=== PATIENT | female | born 2000 | race Caucasian/White ===

== ENCOUNTER 2023-05-28 14:13 | Outpatient (OUT) | payer OTHER, SELFPAY ==
--- NOTE | 2023-05-28 14:17 | US_ITS ---
The [address] [address] Patient Name: EDDIE CASTELLANOS MRN: [id number] date: 2000 Sex: F Assigned Patient Location: US Current Patient Location: Accession/Order Number: [id number] Exam Date: 05/28/2023 14:20 Report Date: 05/29/2023 06:26 At the request of: KIM ASHBY Procedure: US pelvis w/ transvaginal EXAM: US pelvis w/ transvaginal HISTORY: ovarian cyst N83.209 COMPARISON: 07/10/2022. TECHNIQUE: Pelvic sonography was performed utilizing grayscale and color Doppler technique. FINDINGS: Anteverted uterus measures 7.4 x 3.0 x 4.7 cm. Uterine endometrial stripe measures 0.4 cm in thickness. Right ovary measures 2.7 x 1.3 x 1.7 cm. Normal right ovarian parenchyma. Left ovary measures 2.2 x 0.9 x 1.2 cm. Normal left ovarian parenchyma. No significant free fluid within the pelvis. US/US pelvis w/ transvaginal IMPRESSION: Normal pelvic ultrasound. Electronically authenticated by: BETHANY POLANCO Date: 05/29/2023 06:26
== END 2023-05-28 14:14 | disposition home or self-care (01) ==
LOC: US 14:14
PROVIDERS: Visit Provider Obstetrics & Gynecology
DX: N83.209 Unspecified ovarian cyst, unspecified side (principal)
CPT/HCPCS: 76830; 76856

== ENCOUNTER 2023-09-23 21:02 | Outpatient (REF) | payer OTHER, SELFPAY ==
--- OUTSIDE RECORDS SUMMARY | 2023-09-23 21:14 | XMS_ITS | CCD ---
Author Organization [facility] Care Team Providers Care Heel Coverer Machine Operator Name Role Phone Valdemar Pickard Primary Care Physician [phone] SUSAN Rodriguez Emergency Provider [phone] Link, DO Valdemar Chandler Primary Care Provider Valdemar Pickard Primary Care Unavailable Yesi Rodriguez Attending Unavailable Yesi Rodriguez Admitting Unavailable ISMA ., DR ALVAREZ Attending Unavailable ISMA ., DR ALVAREZ Admitting Unavailable ISMA ., DR ALVAREZ Consulting Unavailable ISMA ., DR ALVAREZ Admitting Unavailable ISMA ., DR ALVAREZ Consulting Unavailable ISMA ., DR ALVAREZ Attending Unavailable KARASIK ., DR DÍAZ Consulting Unavailabl e KARASIK ., DR DÍAZ Attending Unavailabl e KARASIK ., DR DÍAZ Admitting Unavailabl e Rigo Lopez Consulting Unavailable ISMA ., DR ALVAREZ Attending Unavailable ISMA ., DR ALVAREZ Admitting Unavailable ISMA ., DR ALVAREZ Consulting Unavailable ZIEBER, DR RUBÉN Morales Consulting Unavailable GAGANDEEP ., LAITH Attending Unavailable Rigo Lopez Consulting Unavailable GAGANDEEP ., LAITH Admitting Unavailable GAGANDEEP ., LAITH Consulting Unavailable ISMA ., DR ALVAREZ Attending Unavailable ISMA ., DR ALVAREZ Admitting Unavailable ISMA ., DR ALVAREZ Consulting Unavailable ISMA ., DR ALVAREZ Admitting Unavailable ISMA ., DR ALVAREZ Attending Unavailable ISMA ., DR ALVAREZ Admitting Unavailable Rigo Lopez Consulting Unavailable ISMA ., DR ALVAREZ Attending Unavailable ISMA ., DR ALVAREZ Consulting Unavailable ISMA ., DR ALVAREZ Admitting Unavailable ISMA ., DR ALVAREZ Consulting Unavailable ISMA ., DR ALVAREZ Attending Unavailable ISMA ., DR ALVAREZ Attending Unavailable ISMA ., DR ALVAREZ Admitting Unavailable ISMA ., DR ALVAREZ Consulting Unavailable ISMA ., DR ALVAREZ Admitting Unavailable ISMA ., DR ALVAREZ Consulting Unavailable ISMA ., DR ALVAREZ Attending Unavailable ZIEBER, DR RUBÉN Morales Consulting Unavailable ISMA ., DR ALVAREZ Attending Unavailable ISMA ., DR ALVAREZ Consulting Unavailable ISMA ., DR ALVAREZ Admitting Unavailable ISMA ., DR ALVAREZ Attending Unavailable ISMA ., DR ALVAREZ Admitting Unavailable GRECHNY ., AMY RODRIGUEZ Consulting Unavailabl e REINECK, DR HALEY Albrecht Admitting Unavailabl e REINECK, DR HALEY Albrecht Attending Unavailabl e ARIE, RADHA Consulting Unavailable ISMA ., DR ALVAREZ Attending Unavailable ISMA ., DR ALVAREZ Admitting Unavailable KARASIK ., DR DÍAZ Consulting Unavailabl e ISMA ., DR ALVAREZ Consulting Unavailable ISMA ., DR ALVAREZ Procedure Practitioner Unavail able ISMA ., DR ALVAREZ Attending Unavailable ISMA ., DR ALVAREZ Consulting Unavailable ISMA ., DR ALVAREZ Admitting Unavailable ZIEBER, DR RUBÉN Morales Consulting Unavailable ISMA ., DR ALVAREZ Attending Unavailable ISMA ., DR ALVAREZ Consulting Unavailable ISMA ., DR ALVAREZ Admitting Unavailable ISMA ., DR ALVAREZ Attending Unavailable ISMA ., DR ALVAREZ Admitting Unavailable MOLLY BENTON Attending Unavailable MOLLY [place] Admitting Unavailable MOLLY [place] Consulting Unavailable SRINIVASAN ASHBY Attending Unavailable Valdemar Pickard Primary Care Physician Jose R Ignacio Attending Unavailable Kayla Mills Attending Unavailable Srinivasan ASHBY R Referring Unavailable Christie Barber Attending Unavailable Luly CARRASCO Attending Unavailable Valdemar Pickard Admitting Unavailable Valdemar Pickard Attending Unavailable Orpaz, Kayla X Admitting Unavailable Orpaz Kayla X Attending Unavailable Pedro Soriano Attending Unavailable Allergies Allergy Classification Reported Allergen(s) Allergy Type Date of Onset Reaction(s) Facility (8 sources) Ibuprofen; Translations: [ibuprofen] Drug Allergy 3 Vomiting (disorder) [facility] (2 sources) methylPREDNISol one; Translations: [methylpredniso lone] Drug Allergy 3 [facility] (2 sources) prednisoLONE; Translations: [prednisolone] Drug Allergy 3 [facility] (3 sources) predniSONE; Translations: [prednisone] Drug Allergy 3 [facility] (1 source) Ibuprofen Drug Allergy 3 [facility]ository (1 source) Ibuprofen Drug Allergy 2 [facility] Repository (1 source) watermelon allergenic extract Drug Allergy 2 [facility] Repository (1 source) mint Drug allergy (disorder) 2 [facility] Repository (1 source) anabolic steroids; Translations: [anabolic steroids] Propensity to adverse reactions (disorder) [facility] Repository Medications Current Medications Medication Drug Class(es) Dates Sig (Normalized) Sig (Original) ALPRAZolam 0.5 mg oral tablet (8 sources) Benzodiazepine Start: 04-04-2020 take 1 tablet by mouth twice daily as needed for anxiety Xanax 0.5 mg Tab 0.5 mg = 1 tab(s), Oral, BID, PRN for anxiety, f41.1., # 60 tab(s), Refills(s) 2, Pharmacy: [facility] #[id number], 159, cm, 03/27/20 11:23:00 EDT, Height/Length Dosing, 92.9, kg, 03/27/20 11:23:00 EDT, Weight Dosing Start Date: 04/04/20 Status: Ordered brompheniramine maleate 0.4 mg/ml / dextromethorphan hydrobromide 2 mg/ml / pseudoephedrine hydrochloride 6 mg/ml oral solution (5 sources) alpha-Adrenergic Agonist, Uncompetitive P-qeadgf-M-aspartate Receptor Antagonist, Sigma-1 Agonist Start: 12-14-2020 take 10 mL by mouth four times daily Bromfed DM oral syrup 10 mL, Oral, QID for cold symptoms, 200 mL, Refill(s) 1, [facility]pharm[facility] #[id number], 155, cm, 12/14/20 15:23:00 EDT, Height/Length Dosing, 91.3, kg, 12/14/20 15:23:00 EDT, Weight Dosing Start Date: 12/14/20 Status: Ordered Brompheniramine / Pseudoephedrine (3 sources) alpha-Adrenergic Agonist Start: 12-14-2020 take 10 mL by mouth four times daily Bromfed DM oral syrup 10 mL, Oral, QID for cold symptoms, 200 mL, Refill(s) 1, [facility]pharm[facility] #[id number], 155, cm, 12/14/20 15:23:00 EDT, Height/Length Dosing, 91.3, kg, 12/14/20 15:23:00 EDT, Weight Dosing Start Date: 12/14/20 Status: Ordered Capmist DM 15 mg-400 mg-60 mg oral tablet (1 source) Start: 07-08-2022 End: 07-15-2022 Capmist DM 15 mg-400 mg-60 mg oral tablet 1 tab(s), Oral, QID Cough and Congestion for 7 day(s), 28 tab(s), Refill(s) 0, [facility] #[id number], 155, cm, 07/08/22 18:26:00 EST, Height/Length Dosing, 89.9, kg, 07/08/22 18:26:00 EST, Weight Dosing Start Date: 07/08/22 Stop Date: 07/15/22 Status: Ordered cephalexin 500 mg oral capsule (1 source) Cephalosporin Antibacterial Start: 05-05-2023 End: 05-12-2023 take 1 capsule by mouth every twelve hours Keflex 500 mg Cap 500 mg = 1 cap(s), Oral, q12hr, X 7 day(s), # 14 cap(s), Refills(s) 0, [id number], cm, 05/05/23 1:19:00 EST, Height/Length Dosing, 87.6, kg, 05/05/23 1:19:00 EST, Weight Dosing Start Date: 05/05/23 Stop Date: 05/12/23 Status: Ordered ciprofloxacin 500 mg oral tablet (1 source) Quinolone Antimicrobial Start: 07-22-2023 End: 07-29-2023 take 1 tablet by mouth every twelve hours Cipro 500 mg Tab 500 mg = 1 tab(s), Oral, q12hr, X 7 day(s), # 14 tab(s), Refills(s) 0, Pharmacy: [facility] #[id number], 156, cm, 07/22/23 16:52:00 EST, Height/Length Dosing, 88, kg, 07/22/23 16:52:00 EST, Weight Dosing Start Date: 07/22/23 Stop Date: 07/29/23 Status: Ordered {7 (Ethinyl Estradiol 0.01 MG Oral Tablet) / 84 (Ethinyl Estradiol 0.03 MG / Levonorgestrel 0.15 MG Oral Tablet) } Pack (4 sources) Progestin, Estrogen, Progestin-containing Intrauterine Device Start: 11-21-2022 ethinyl estradiol-verena orgestrel biphasic extended cycle oral tablet 1 tab(s), Oral, Daily, 56 tab(s), Refill(s) 0 Start Date: 11/21/22 Status: Ordered lamoTRIgine 150 mg oral tablet (8 sources) Mood Stabilizer, Anti-epileptic Agent Start: 04-04-2020 take 1 tablet by mouth twice daily Lamictal 150 mg Tab 150 mg = 1 tab(s), Oral, BID, # 60 tab(s), Refills(s) 5, Pharmacy: [facility] #[id number], 159, cm, 03/27/20 11:23:00 EDT, Height/Length Dosing, 92.9, kg, 03/27/20 11:23:00 EDT, Weight Dosing Start Date: 04/04/20 Status: Ordered loperamide hydrochloride 2 mg oral tablet (8 sources) Opioid Agonist Start: 07-30-2020 take 1 tablet by mouth every four hours as needed Imodium A-D 2 mg oral tablet 2 mg = 1 tab(s), Oral, q4hr, PRN for loose stools, # 24 tab(s), Refills(s) 0, Pharmacy: [id number], 155, cm, 07/29/20 22:54:00 EST, Height/Length Dosing, 92.7, kg, 07/29/20 22:54:00 EST, Weight Dosing Start Date: 07/30/20 Status: Ordered loratadine 10 mg oral tablet (8 sources) Start: 10-25-2019 take 1 tablet by mouth once daily loratadine 10 mg Tab 10 mg = 1 tab(s), Oral, Daily, # 30 tab(s), Refills(s) 2, Pharmacy: [facility] #[id number], 157, cm, 08/27/19 14:44:00 EDT, Height/Length Measured, 88, kg, 08/27/19 14:44:00 EDT, Weight Measured Start Date: 10/25/19 Status: Ordered naproxen 500 mg oral tablet (8 sources) Nonsteroidal Anti-inflammatory Drug Start: 08-23-2021 take 1 tablet by mouth twice daily as needed for pain naproxen 500 mg Tab 500 mg = 1 tab(s), Oral, BID, PRN Pain, with food, # 60 tab(s), Refills(s) 0, Pharmacy: [id number], 155, cm, 01/27/21 14:56:00 EDT, Height/Length Dosing, 91.3, kg, 01/27/21 14:56:00 EDT, Weight Dosing Start Date: 08/23/21 Status: Ordered phenazopyridine hydrochloride 100 mg oral tablet (3 sources) Start: 05-05-2023 End: 05-08-2023 take 1 tablet by mouth three times daily Pyridium 100 mg Tab 100 mg = 1 tab(s), Oral, TID, X 3 day(s), # 9 tab(s), Refills(s) 0, [id number], cm, 05/05/23 1:19:00 EST, Height/Length Dosing, 87.6, kg, 05/05/23 1:19:00 EST, Weight Dosing Start Date: 05/05/23 Stop Date: 05/08/23 Status: Ordered Start: 11-21-2022 End: 11-24-2022 take 1 tablet by mouth three times daily as needed Pyridium 100 mg Tab 100 mg = 1 tab(s), Oral, TID, PRN Urinary discomfort, X 3 day(s), # 9 tab(s), Refills(s) 0, [id number], cm, 11/21/22 15:42:00 EDT, Height/Length Dosing, 89.5, kg, 11/21/22 15:42:00 EDT, Weight Dosing Start Date: 11/21/22 Stop Date: 11/24/22 Status: Ordered phentermine hydrochloride 37.5 mg oral capsule (4 sources) Sympathomimetic Amine Anorectic Start: 11-21-2022 take 1 capsule by mouth once daily Adipex-P 37.5 mg oral capsule 37.5 mg = 1 cap(s), Oral, Daily, Refills(s) 0 Start Date: 11/21/22 Status: Ordered sulfamethoxazole 800 mg / trimethoprim 160 mg oral tablet (2 sources) Dihydrofolate Reductase Inhibitor Antibacterial, Sulfonamide Antimicrobial Start: 11-21-2022 End: 11-26-2022 Bactrim D.S. 800 mg-160 mg Tab 1 tab(s), Oral, BID for 5 day(s), 10 tab(s), Refill(s) 0, [id number], 155, cm, 11/21/22 15:42:00 EDT, Height/Length Dosing, 89.5, kg, 11/21/22 15:42:00 EDT, Weight Dosing Start Date: 11/21/22 Stop Date: 11/26/22 Status: Ordered Symbicort 80/4.5 inhalation aerosol with adapter (8 sources) Start: 07-16-2021 Symbicort 80/4.5 inhalation aerosol with adapter 2 puff(s), Inhalation, BID, 1 EA, Refill(s) 1, IMTIAZ, rinse mouth and throat after use Fill as Symbicort brand per insurance, [id number], 155, cm, 01/27/21 14:56:00 EDT, Height/Length Dosing, 91.3, kg, 01/27/21 14:56:00 EDT, Weight Dosing Start Date: 07/16/21 Status: Ordered Completed/Discontinued Medications Medication Drug Class(es) Dates Sig (Normalized) Sig (Original) {21 (Desogestrel 0.15 MG / Ethinyl Estradiol 0.03 MG Oral Tablet) / 7 (Inert Ingredients 1 MG Oral Tablet) } Pack [Deceb Day] (5 sources) Progestin, Estrogen Start: 05-17-2020 take 1 tablet by mouth once daily Juleber 0.15 mg-0.03 mg oral tablet 1 tab(s), Oral, Daily, 84 tab(s), Refill(s) 4, [id number], 159, cm, 05/17/20 10:15:00 EST, Height/Length Dosing, 92.1, kg, 05/17/20 10:15:00 EST, Weight Dosing Start Date: 05/17/20 Status: Ordered Juleber 0.15 mg-0.03 mg oral tablet (3 sources) Start: 05-17-2020 take 1 tablet by mouth once daily Juleber 0.15 mg-0.03 mg oral tablet 1 tab(s), Oral, Daily, 84 tab(s), Refill(s) 4, [id number], 159, cm, 05/17/20 10:15:00 EST, Height/Length Dosing, 92.1, kg, 05/17/20 10:15:00 EST, Weight Dosing Start Date: 05/17/20 Status: Ordered Ventolin HFA 90 mcg/inh Aerosol (8 sources) Start: 02-23-2020 take 1 dose by inhalation four times daily Ventolin HFA 90 mcg/inh Aerosol 2 puff(s), Inhalation, QID Cough, 1 EA, Refill(s) 0, [id number], 159, cm, 02/23/20 14:17:00 EDT, Height/Length Dosing, 93.7, kg, 02/23/20 14:17:00 EDT, Weight Dosing Start Date: 02/23/20 Status: Ordered Problems Active Problems Problem Classification Problem Date Documented Da te Episodic/Chronic Anxiety disorders (12 sources) Generalized anxiety disorder 01-06-2020 Chronic Asthma (12 sources) Reactive airway disease 04-13-2020 Chronic Bacterial infection; unspecified site (1 source) Bacterial infectious disease; Translations: [Bacterial infection, unspecified] Onset: 07-22-2023 Episodic Genitourinary symptoms and ill-defined conditions (1 source) Dysuria; Translations: [Dysuria] Onset: 11-21-2022 Episodic Immunizations and screening for infectious disease (2 sources) Encounter for screening for human papillomavirus (HPV); Translations: [Contact with and (suspected) exposure to infections with a predominantly sexual mode of transmission] Onset: 12-19-2021 Episodic Menstrual disorders (20 sources) Dysmenorrhea; Translations: [Irregular periods] Onset: 12-17-2021 11-10-2018 Chronic Mood disorders (12 sources) Moderate mixed bipolar I disorder 01-06-2020 Chronic Other complications of ; puerperium affecting management of mother (4 sources) Delayed and secondary hemorrhage; Translations: [DELAYED AND SEC HEMORRHAGE] Onset: 07-10-2022 Episodic Other complications of ; puerperium affecting management of mother (1 source) Urinary tract infection following delivery, unspecified; Translations: [UTI FOLLOWING DELIVERY UNSPECIFIED] Onset: 07-11-2022 Episodic Other endocrine disorders (12 sources) Hypoglycemia 07-07-2020 Chronic Other female genital disorders (13 sources) Abnormal uterine bleeding; Translations: [Other specified abnormal uterine and vaginal bleeding] 01-06-2020 Chronic Other gastrointestinal disorders (12 sources) Irritable bowel syndrome 09-10-2015 Chronic Other gastrointestinal disorders (12 sources) Irritable bowel syndrome characterized by constipation 11-30-2018 Chronic Other nutritional; endocrine; and metabolic disorders (13 sources) Obesity; Translations: [Other obesity due to excess calories] Onset: 11-21-2022 04-13-2020 Chronic Other nutritional; endocrine; and metabolic disorders (2 sources) Obese class II; Translations: [Body mass index (BMI) 37.0-37.9, adult] Onset: 07-08-2022 Chronic Other screening for suspected conditions (not mental disorders or infectious disease) (4 sources) Abnormal findings on diagnostic imaging of other specified body structures; Translations: [ABNORML FIND DX IMG OTH BODY STRUC] Onset: 01-08-2022 Chronic Other screening for suspected conditions (not mental disorders or infectious disease) (20 sources) Encounter for screening for malignant neoplasm of cervix; Translations: [Encounter for screening for Streptococcus B] Onset: 12-17-2021 Episodic Other upper respiratory disease (12 sources) Seasonal allergic rhinitis 04-13-2020 Chronic Other upper respiratory infections (1 source) Common cold; Translations: [Acute nasopharyngitis [common cold]] Onset: 07-08-2022 Episodic Sprains and strains (1 source) Sprain of left ankle; Translations: [Sprain of unspecified ligament of left ankle, initial encounter] Onset: 02-26-2022 Episodic Unclassified (12 sources) Drug therapy finding 01-06-2020 Unclassified (1 source) Other specified abnormal uterine and vaginal bleeding; Translations: [Other specified abnormal uterine and vaginal bleeding] Onset: 07-11-2022 Unclassified (2 sources) Extended spectrum beta-lactamase producing bacteria carrier Onset: 11-21-2022 11-25-2022 Comment on above: ESBL E coli in urine 11/21/2022 Urinary tract infections (4 sources) Urinary tract infection, site not specified; Translations: [Urinary tract infectious disease] Onset: 07-11-2022 Episodic Past or Other Problems Problem Classification Problem Date Documented Date Episodic/Chronic Abdominal pain (13 sources) Pain in pelvis; Translations: [Pelvic and perineal pain] Onset: 06-11-2022 Resolved: 11-10-2018 11-30-2018 Episodic Early or threatened labor (4 sources) False labor before 37 completed weeks of gestation, third trimester; Translations: [FALSE LABR BEFOR 37 WK GEST 3RD TRI] Onset: 05-11-2022 Episodic Fluid and electrolyte disorders (1 source) Dehydration; Translations: [DEHYDRATION] Onset: 05-20-2022 Episodic Headache; including migraine (12 sources) Frontal headache Resolved: 11-10-2018 11-30-2018 Episodic Hemorrhage during ; abruptio placenta; placenta previa (4 sources) Antepartum hemorrhage, unspecified, second trimester; Translations: [ANTEPARTUM HEMORR UNS 2ND TRIMESTER] Onset: 02-05-2022 Episodic OB-related trauma to perineum and vulva (1 source) Fourth degree perineal laceration during delivery; Translations: [FOURTH DEG PERINEAL LAC DUR DELIV] Onset: 06-21-2022 Episodic Other complications of ; puerperium affecting management of mother (4 sources) Other complications of the puerperium, not elsewhere classified; Translations: [OTHER COMPLICATIONS PUERPERIUM NEC] Onset: 06-10-2022 Episodic Other complications of ; puerperium affecting management of mother (1 source) Streptococcus B carrier state complicating childbirth; Translations: [STREP B TORRES STATE COMP CHILDBIRTH] Onset: 06-21-2022 Episodic Other complications of (3 sources) Uterine size-date discrepancy, unspecified trimester; Translations: [UTERINE SZ-DATE DISCREPANCY UNS TRI] Onset: 05-20-2022 Episodic Other complications of (1 source) Uterine size-date discrepancy, third trimester; Translations: [UTERINE SZ-DATE DISCREPANCY 3RD TRI] Onset: 05-25-2022 Episodic Other complications of (1 source) Other specified related conditions, third trimester; Translations: [OTH SPEC PREG RELATED COND 3RD TRI] Onset: 05-20-2022 Episodic Other complications of (4 sources) Maternal care for excessive growth, third trimester, not applicable or unspecified; Translations: [MAT CARE EXCSS FTL GRTH 3RD TRI UNS] Onset: 04-04-2022 Episodic Other complications of (1 source) Other specified related conditions, second trimester; Translations: [OTH SPEC PREG RELATED COND 2ND TRI] Onset: 01-12-2022 Episodic Other and delivery including normal (10 sources) Encounter for routine follow-up; Translations: [Encounter for supervision of normal , unspecified, third trimester] Onset: 12-05-2021 Episodic Residual codes; unclassified (1 source) 37 weeks gestation of ; Translations: [37 WEEKS GESTATION OF ] Onset: 06-21-2022 Episodic Residual codes; unclassified (1 source) 35 weeks gestation of ; Translations: [35 WEEKS GESTATION OF ] Onset: 05-25-2022 Episodic Residual codes; unclassified (1 source) 33 weeks gestation of ; Translations: [33 WEEKS GESTATION OF ] Onset: 05-20-2022 Episodic Residual codes; unclassified (1 source) 28 weeks gestation of ; Translations: [28 WEEKS GESTATION OF ] Onset: 04-07-2022 Episodic Residual codes; unclassified (1 source) 20 weeks gestation of ; Translations: [20 WEEKS GESTATION OF ] Onset: 02-06-2022 Episodic Residual codes; unclassified (1 source) 16 weeks gestation of ; Translations: [16 WEEKS GESTATION OF ] Onset: 01-12-2022 Episodic Results Test Name Value Interpretation Reference Range Facility ED Note-Physicianon 07-26-19 24 ED Note-Physician Basic Information Time Seen: Steven Hoover PA-C 07/22/2023 16:54 Chief Complaint pt c\o bilateral flank pain, nausea and dysuria x2 days History of Present Illness 23-year-old female comes to the ED for evaluation of dysuria. She developed urinary symptoms 5 days ago with increased urinary frequency, painful urination. She was started on Macrobid and Pyridium by her AIR BRAKE MAN. Despite daily medication she has not had any improvement in symptoms. She now complains of pain that radiates to her low back. No unilateral flank pain. Some nausea but no vomiting. No fevers. No concern for or STD. Review of Systems A 10 point review of systems is negative except as noted above. Medical and Surgical History: Reviewed and noted Social history: Lives at home Tobacco: Denies Physical Exam Vitals & Measurements T: 37 ?C(Oral) HR: 87(Peripheral) RR: 16 BP: 120/76 SpO2: 100% HT: 156 cm WT: 88 kg BMI: 36.16 Nurses notes and vital signs reviewed and patient is not hypoxic. General: The patient appears well, resting comfortably. Skin: Warm, dry. Head: Atraumatic. Neck: No JVD. Eye: Normal conjunctiva. Ears, Nose, Mouth, and Throat: Moist mucous membranes. Cardiovascular: Strong distal pulses. Chest wall: Respiratory: Respirations are nonlabored. Back: Normal range of motion. No CVA tenderness Musculoskeletal: Normal ROM with no gross deformity. Gastrointestinal: Soft and nontender Urological: Neurological: Awake and alert. No focal deficits. Follows commands. Psychiatric: Cooperative. Medical Decision Making Urinalysis does show nitrate positive UTI. Macrobid is discontinued and she will be started on ciprofloxacin. She was offered pain medications and declined. She is overall nontoxic. Abdomen is soft. No fevers. No vomiting. Discharged to follow-up with PCP. Patient was encouraged to return to the ED if symptoms worsen or change. Assessment/Plan Bacterial infection, unspecified (A49.9: Bacterial infection, unspecified) UTI (urinary tract infection), bacterial (N39.0: Urinary tract infection, site not specified) Orders: ciprofloxacin, 500 mg = 1 tab(s), Oral, q12hr, X 7 day(s), # 14 tab(s), Refills(s) 0, Pharmacy: [facility] #[id number], 156, cm, 07/22/23 16:52:00 EST, Height/Length Dosing, 88, kg, 07/22/23 16:52:00 EST, Weight Dosing Disposition Plan Patient Discharge Condition Disposition: Discharged home Condition: Improved and stable Counseled: Patient and/or family were counseled to workup, results, treatment plan and follow-up recommendations Discharge Prescription List Prescriptions Cipro 500 mg Tab, 500 mg= 1 tab(s), Oral, q12hr Follow-up With When Contact Information Valdemar Link In 3 days 07/25/2023 EST [id number] [place] [address]- Business (1) Additional Instructions: Patient Education Urinary Tract Infection, Adult Attestation I performed a substantive part of the MDM during the patient?s E/M visit. I personally made or approved the documented management plan and acknowledge its risk of complications. (Independent Interpretation) My (EKG/X-Ray/US/CT) interpretation as above. (Discussion) Management/test interpretation discussed with APC. This report was transcribed using voice recognition software. Every effort was made to ensure accuracy, however, inadvertently computerized meal cooker mistakes may be present. Appropriate healthcare PPE was used in evaluating this patient. Problem List/Past Medical History Ongoing Abnormal uterine bleeding (AUB) Allergic rhinitis, seasonal Anxiety disorder NOS Class 2 obesity with body mass index (BMI) of 36.0 to 36.9 in adult Dysmenorrhea ESBL 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 Medications Inpatient No active inpatient medications Home Adipex-P 37.5 mg oral capsule, 37.5 mg= 1 cap(s), Oral, Daily Cipro 500 mg Tab, 500 mg= 1 tab(s), Oral, q12hr ethinyl estradiol-levonorge strel biphasic extended cycle oral tablet, 1 tab(s), Oral, Daily Allergies Advil (Vomiting) Social History Alcohol - Denies Alcohol Use, 05/17/2020 Current, Liquor, 1-2 times per week, 4 drinks/episode average. 6.00 drinks/episode maximum. Started age 19 Years. Previous treatment: None. Alcohol use interferes with work or home: No. Drinks more than intended: Yes. 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 Normal [facility] Comment on above: Result Comment: Elec tronically Signed By: Steven Hoover PA-C\.br\Date and Time Signed: 07/22/23 18:04 EST\.br\Electronically Co-Signed By: Jose R Ignacio DO\.br\Date and Time Co-Signed: 07/26/23 07:36 EST Chlamydia/Gonococcus, NAAon 07-25-2023 C. trachomatis rRNA SUDEEP+probe Ql (Unsp spec) Negative Invalid Interpretation Code Negative [facility] Comment on above: Performed By: #### 1 [id number], [id number], [id number], [id number] ####[address] [place] [address] N. gonorrhoeae rRNA SUDEEP+probe Ql (Unsp spec) Negative Invalid Interpretation Code Negative [facility] Comment on above: Result Comment: Perf ormed at: =G [facility] [address] [id number] MD Americo Ortiz Performed By: #### 1 [id number], [id number], [id number], [id number] ####[address] [address] C Urineon 07-24-2023 Bacteria identified Cx Nom (U) Microbiology PROCEDURE: Urine Culture [R1] SOURCE: U CleanCatch BODY SITE: COLLECTED DATE/TIME: 07/22/2023 17:14 EST RECEIVED DATE/TIME: 07/22/2023 19:09 EST START DATE/TIME: 07/22/2023 19:09 EST FREE TEXT SOURCE: María Elena Zeepda PA-C, PA-C, Kristen N FINAL REPORTS Final Report [] Verified Date/Time: 07/24/2023 07:00 EST 5,000 cfu/ml Mixed skin contaminants Performing Locations R1: [facility], [address] [place] [address], [address]- , , [facility] Comment on above: Performed By: #### 1 [id number], [id number], [id number], [id number] ####[facility] [address] [place] [address] Consent for Treatmenton 07-10 Consent for Treatment [id number]#1.00TIFF Normal [facility] Discharge Instructionson Discharge Instructions [id number]#1.00TIFF Normal [facility] ED Clinical Summaryon 2023 ED Clinical Summary [address] [address] ED Clinical Summary Person Information Name: EDDIE ANTONIO [facility] Age: 23 Years : 2000 Sex: Female Language: Ukrainian PCP: Valdemar Pickard DO Marital Status: Single Visit Id: Visit Reason: Nausea; Dysuria; Flank pain; PAIN POSSIBLE UTI Speciality: Acuity: 3 Enc Type: Emergency Med Service: Emergency Arrival: 07/22/2023 16:43:34 Discharge: 07/22/2023 18:09:33 LOS: 000 01:26 Checkin: 07/22/2023 16:43:34 Checkout: 07/22/2023 18:09:33 Dispo Type: Home (Routine DC) EVENTS: Event Name Event Status Request Date/Time Start Date/Time Complete Date/Time Arrive Complete 07/22/2023 16:43:34 07/22/2023 16:43:34 07/22/2023 16:43:34 Document Home Meds Request 07/22/2023 16:43:34 Triage Complete 07/22/2023 16:43:34 07/22/2023 16:52:19 07/22/2023 16:52:19 Registration Complete 07/22/2023 16:46:36 07/22/2023 16:46:36 07/22/2023 16:46:36 Reg Complete Request 07/22/2023 16:46:36 Reg Bed Request Complete 07/22/2023 16:46:36 07/22/2023 16:46:36 07/22/2023 16:46:36 Pending Labs Collected 07/22/2023 16:46:40 Lab Complete 07/22/2023 16:46:40 07/22/2023 17:41:00 Urine Collect Complete 07/22/2023 16:46:40 07/22/2023 17:41:00 Bed Assign Complete 07/22/2023 16:52:40 07/22/2023 16:52:40 07/22/2023 16:52:40 Dr Exam Complete 07/22/2023 16:52:40 07/22/2023 16:54:13 07/22/2023 16:54:13 RN Exam Complete 07/22/2023 16:52:40 07/22/2023 17:16:56 07/22/2023 17:16:56 Registration Request 07/22/2023 16:54:13 Dr Exam Complete 07/22/2023 16:54:46 07/22/2023 16:54:46 07/22/2023 16:54:46 Pending Labs Collected 07/22/2023 17:28:25 07/22/2023 17:28:25 Lab Collected 07/22/2023 17:28:25 07/22/2023 17:28:25 Discharge Complete 07/22/2023 18:00:24 07/22/2023 18:09:47 07/22/2023 18:09:47 Transfer Complete 07/22/2023 18:09:47 07/22/2023 18:09:47 07/22/2023 18:09:47 ADDRESS: [address] [place] [id number] PHYS DOC NOTES: MEDICAL INFORMATION: Prescriptions Given: New Medications [id number], [address] [place], [place] [id number], [phone] ciprofloxacin (Cipro 500 mg Tab) 1 Tablets By Mouth every 12 hours for 7 Days. Refills: 0. Medications to Continue with No Changes Other Medications ethinyl estradiol-levonorge strel (ethinyl estradiol-levonorge strel biphasic extended cycle oral tablet) 1 Tablets By Mouth every day. phentermine (Adipex-P 37.5 mg oral capsule) 1 Capsules By Mouth every day. PATIENT EDUCATION INFORMATION: Instructions: Urinary Tract Infection, Adult Follow up: With: Address: When: Valdemar Pickard [address] [place] [id number] [place] (1) In 3 days 07/25/2023 DIAGNOSIS: Bacterial infection, unspecified; UTI (urinary tract infection), bacterial Normal [facility] ED Patient Education Noteon 07-22-2023 ED Patient Education Note Obstetrics and Gynecology Urinary Tract Infection, Adult A urinary tract infection (UTI) is an infection of any part of the urinary tract. The urinary tract includes the kidneys, ureters, bladder, and urethra. These organs make, store, and get rid of urine in the body. An upper UTI affects the ureters and kidneys. A lower UTI affects the bladder and urethra. What are the causes? Most urinary tract infections are caused by bacteria in your genital area around your urethra, where urine leaves your body. These bacteria grow and cause inflammation of your urinary tract. What increases the risk? You are more likely to develop this condition if: ? You have a urinary catheter that stays in place. ? You are not able to control when you urinate or have a bowel movement (incontinence). ? You are female and you: ? Use a spermicide or diaphragm for control. ? Have low estrogen levels. ? Are . ? You have certain genes that increase your risk. ? You are sexually active. ? You take antibiotic medicines. ? You have a condition that causes your flow of urine to slow down, such as: ? An enlarged prostate, if you are male. ? Blockage in your urethra. ? A kidney stone. ? A nerve condition that affects your bladder control (neurogenic bladder). ? Not getting enough to drink, or not urinating often. ? You have certain medical conditions, such as: ? Diabetes. ? A weak disease-fighting system (immunesystem). ? Sickle cell disease. ? Gout. ? Spinal cord injury. What are the signs or symptoms? Symptoms of this condition include: ? Needing to urinate right away (urgency). ? Frequent urination. This may include small amounts of urine each time you urinate. ? Pain or burning with urination. ? Blood in the urine. ? Urine that smells bad or unusual. ? Trouble urinating. ? Cloudy urine. ? Vaginal discharge, if you are female. ? Pain in the abdomen or the lower back. You may also have: ? Vomiting or a decreased appetite. ? Confusion. ? Irritability or tiredness. ? A fever or chills. ? Diarrhea. The first symptom in older adults may be confusion. In some cases, they may not have any symptoms until the infection has worsened. How is this diagnosed? This condition is diagnosed based on your medical history and a physical exam. You may also have other tests, including: ? Urine tests. ? Blood tests. ? Tests for STIs (sexually transmitted infections). If you have had more than one UTI, a cystoscopy or imaging studies may be done to determine the cause of the infections. How is this treated? Treatment for this condition includes: ? Antibiotic medicine. ? Snux-nyv-immymob medicines to treat discomfort. ? Drinking enough water to stay hydrated. If you have frequent infections or have other conditions such as a kidney stone, you may need to see a health care provider who specializes in the urinary tract (urologist). In rare cases, urinary tract infections can cause sepsis. Sepsis is a life-threatening condition that occurs when the body responds to an infection. Sepsis is treated in the hospital with IV antibiotics, fluids, and other medicines. Follow these instructions at home: Medicines ? Take oyvp-msx-qkebvyk and prescription medicines only as told by your health care provider. ? If you were prescribed an antibiotic medicine, take it as told by your health care provider. Do not stop using the antibiotic even if you start to feel better. General instructions ? Make sure you: ? Empty your bladder often and completely. Do not hold urine for long periods of time. ? Empty your bladder after sex. ? Wipe from front to back after urinating or having a bowel movement if you are female. Use each tissue only one time when you wipe. ? Drink enough fluid to keep your urine pale yellow. ? Keep all follow-up visits. This is important. Contact a health care provider if: ? Your symptoms do not get better after 1?2 days. ? Your symptoms go away and then return. Get help right away if: ? You have severe pain in your back or your lower abdomen. ? You have a fever or chills. ? You have nausea or vomiting. Summary ? A urinary tract infection (UTI) is an infection of any part of the urinary tract, which includes the kidneys, ureters, bladder, and urethra. ? Most urinary tract infections are caused by bacteria in your genital area. ? Treatment for this condition often includes antibiotic medicines. ? If you were prescribed an antibiotic medicine, take it as told by your health care provider. Do not stop using the antibiotic even if you start to feel better. ? Keep all follow-up visits. This is important. This information is not intended to replace advice given to you by your health care provider. Make sure you discuss any questions you have with your health care provider. Document Revised: 01/05/2021 Document Revie (more content not included)... Normal [facility] ED Patient Summaryon 024 ED Patient Summary [address] [address] Patient Discharge Instructions Person Information Name: EDDIE ANTONIO Age: 23 Years Arrival Date: 07/22/2023 16:43:34 Discharge Diagnosis: Bacterial infection, unspecified; UTI (urinary tract infection), bacterial Primary Care Physician: Valdemar Pickard DO Provider Information Primary Provider: Jose R Ignacio DO [employer] Shear Operator:Steven Hoover PA-C The exam and treatment you received in the Emergency Department were for an urgent problem and are not intended as complete care. It is important that you follow up with a doctor, nurse practitioner, or physician?s assistant professor of biology for ongoing care. If your symptoms become worse or you do not improve as expected and you are unable to reach your usual health care provider, you should return to the Emergency Department. We are available 24 hours a day. EDDIE ANTONIO has been given the following list of patient education materials, prescriptions and follow-up instructions: Follow-up Instructions: With: Address: Miriam: Valdemar Pickard [address] [id number] Business (1) In 3 days 07/25/2023 In the event that this physician does not participate in your insurance network, please consult with your insurance company to find a nearby participating provider. Patient Education Materials: Urinary Tract Infection, Adult A MESSAGE TO ALL PATIENTS REGARDING OPIOIDS PRESCRIPTION OPIOIDS: WHAT YOU NEED TO KNOW Prescription opioids can be used to help relieve vakgxliy-de-vfsjrw pain and are often prescribed following a surgery or injury, or for certain health conditions. These medications can be an important part of the treatment but also come with serious risks. It is important to work with your healthcare provider to make sure you are getting the safest, most effective care. WHAT ARE THE RISKS AND SIDE EFFECTS OF OPIOID USE? Prescription opioids carry serious risks of addiction and overdose, especially with prolonged use. An opioid overdose, often marked by slowed breathing, can cause sudden . The use of prescription opioids can have a number of side effects as well, even when taken as directed: ? Tolerance?meaning you might need to take more of the medication for the same pain relief ? Physical dependence?meaning you have symptoms of withdrawal when a medication is stopped ? Increased sensitivity to pain ? Constipation ? Nausea, vomiting, and dry mouth ? Sleepiness and dizziness ? Confusion ? Depression ? Low levels of testosterone that can result in lower sex drive, energy, and strength ? Itching and sweating RISKS ARE GREATER WITH: ? History of drug misuse, substance use disorder, or overdose ? Mental health conditions (such as depression or anxiety) ? Sleep apnea ? Older age (65 years and older) ? Avoid alcohol while taking prescription opioids. Also, unless specifically advised by your health care provider, medications to avoid include: ? Benzodiazepines (such as Xanax or Valium) ? Muscle relaxants (such as Soma or Flexeril) ? Hypnotics (such as Ambien or Lunesta) ? Other prescription opioids KNOW YOUR OPTIONS Talk to your health care provider about ways to manage your pain that don?t involve prescription opioids. Some of these options may actually work better and have fewer risks and side effects. Options may include: ? Pain relievers such as acetaminophen, ibuprofen, and naproxen ? Some medication that are also used for depression or seizures ? Physical therapy and exercise ? Cognitive behavioral therapy, a psychological, goal-directed approach, in which patients learn how to modify physical, behavioral, and emotional triggers of pain and stress. IF YOU ARE PRESCRIBED OPIOIDS FOR PAIN: ? Never take opioids in greater amounts or more often than prescribed. ? Follow up with your primary health care provider. o Work together to create a plan on how to manage your pain. o Talk about ways to help manage your pain that don?t involve prescription opioids. o Talk about any and all concerns and side effects. ? Help prevent misuse and abuse o Never sell or share prescription opioids. o Never use another person?s prescription opioids. ? Store prescription opioids in a secure place and out of reach of others (this may include visitors, children, friends, and family). ? Safely dispose of unused prescription opioids: Find your community drug take-back program or your pharmacy mail-back program, or flush them down the toilet, following guidance from the Food and Drug Administration (www.fda.gov/Drugs/ ResourcesForYou). ? Visit www.cdc.gov/drugove rdose to learn about the risks of opioids abuse and overdose. ? If you believe you may be struggling with addiction, tell your health care clinician and ask for guidance or call [facility]?S (more content not included)... Normal [facility] Prescriptions/Work Noteson 0 07-22-2023 Prescriptions/Work Notes [id number]#1.00TIFF Normal [facility] SEROLOGYOrdered By: Zulay Altman on 07-22-2023 HCG.beta subunit (U) [Moles/Vol] Negative Normal [facility] Man Sero U BetaHcg Qualon 07-22-2023 HCG.beta subunit (U) [Moles/Vol] Negative Normal [facility] Comment on above: Performed By: #### 1 [id number], [id number], [id number], [id number] ####[facility] [address] [place] [address] UA With Cult Reflexon 2023 Bacteria LM Ql (Urine sed) 1+ /HPF Abnormal Trace [facility] Comment on above: Performed By: #### 1 [id number], [id number], 7898466, [id number] ####[facility] [address] [place] [address] Bilirubin Ql (U) Negative Normal Negative [facility] Comment on above: Performed By: #### 1 8324716, 73666166, 6494103, [id number] ####[facility] [address] [place] [address] Clarity (U) SL CLOUDY Invalid Interpretation Code [facility] Comment on above: Performed By: #### 1 2139660, 09278287, 5790883, [id number] ####[facility] [address] [place] [address] Color (U) ORANGE Abnormal Yellow [facility] Comment on above: Performed By: #### 1 5246765, 32411098, 4546570, [id number] ####[facility] [address] [place] [address] Crystals LM Ql (Urine sed) Present Normal [facility] Comment on above: Performed By: #### 1 8999714, 88513183, 0811914, [id number] ####[address] [address] Epithelial cells.squamous LM.HPF (Urine sed) [#/Area] 0-2 Normal 0-2 [facility] Comment on above: Performed By: #### 1 0923145, 36701400, 6021429, [id number] ####[facility] [address] [place] [address] Glucose Test strip (U) [Mass/Vol] TRACE Abnormal Negative [facility] Comment on above: Performed By: #### 1 6463631, 88598712, 9689981, [id number] ####[facility] [address] [place] [address] Hemoglobin Ql (U) Negative Normal Negative [facility] Comment on above: Performed By: #### 1 7459548, 80482909, 1903581, [id number] ####[facility] [address] [place] [address] Ketones (U) [Mass/Vol] TRACE Invalid Interpretation Code Negative [facility] Comment on above: Performed By: #### 1 8872855, 83227432, 6725047, [id number] ####[address] [place] [address] Woodworth.plasma/Woodworth.R BC (Bld) [Mass ratio] 0-3 Normal 0-3 [facility] Comment on above: Performed By: #### 1 9723817, 97851271, 7018757, [id number] ####[facility] [address] [place] [address] Nitrite Ql (U) Positive Abnormal Negative [facility] Comment on above: Performed By: #### 1 4705155, 54291972, 8826059, [id number] ####[facility] [address] [place] [address] pH (U) 6.0 [pH] Invalid Interpretation Code 5.0-9.0 [facility] Comment on above: Performed By: #### 1 8561931, 57694070, 7715040, [id number] ####[address] [address] Protein (U) [Mass/Vol] TRACE Abnormal Negative [facility] Comment on above: Performed By: #### 1 0991022, 83396197, 8866276, [id number] ####[address] [address] Specific gravity (U) [Rel density] 1.020 Invalid Interpretation Code 1.005-1.030 [facility] Comment on above: Performed By: #### 1 9334493, 35310586, 2802943, [id number] ####[address] [address] Type of Urine collection method Clean Catch Normal [facility] Comment on above: Performed By: #### 1 8265440, 75516289, 6309360, [id number] ####[facility] [address] [place] [address] Urobilinogen Qn (U) 1.0 {Markel'U}/dL Normal 0.0-1.0 [facility] Comment on above: Performed By: #### 1 7039602, 22111986, 7065090, [id number] ####[facility] [address] [place] [address] WBC Auto Ql (U) Negative Normal Negative [facility] Comment on above: Performed By: #### 1 5058308, 09261774, 1733160, [id number] ####[facility] [address] [place] [address] WBC LM.HPF (Urine sed) [#/Area] 0-5 Normal 0-5 [facility] Comment on above: Performed By: #### 1 6283236, 43114042, 9190781, [id number] ####[facility] [address] [place] [address] URINALYSISOrdered By: Apryl castillo on 07-22-2023 Bacteria LM Ql (Urine sed) 1+ /HPF Invalid Interpretation Code Trace/HPF [facility] UA Auto SS Bilirubin Ql (U) Negative (07/22/23 5:14 PM) Normal Negative [facility] UA Auto SS Clarity (U) SL CLOUDY Invalid Interpretation Code [facility] UA Auto SS Color (U) [place] *ABN* (07/22/23 5:14 PM) Invalid Interpretation Code Yellow [facility] UA Auto SS Crystals LM Ql (Urine sed) Present (07/22/23 5:14 PM) Normal [facility] UA Auto SS Epithelial cells.squamous LM.HPF (Urine sed) [#/Area] 0-2 /HPF Normal 0-2/HPF [facility] UA Aut o SS Glucose Test strip (U) [Mass/Vol] Trace *ABN* (07/22/23 5:14 PM) Invalid Interpretation Code Negative [facility] UA Auto SS Hemoglobin Ql (U) Negative (07/22/23 5:14 PM) Normal Negative [facility] UA Auto SS Ketones (U) [Mass/Vol] Trace *NA* (07/22/23 5:14 PM) Invalid Interpretation Code Negative [facility] UA Auto SS Woodworth.plasma/Woodworth.R BC (Bld) [Mass ratio] 0-3 /HPF Normal 0-3/HPF [facility] UA Au to SS Nitrite Ql (U) Positive *ABN* (07/22/23 5:14 PM) Invalid Interpretation Code Negative [facility] UA Auto SS pH (U) 6.0 *NA* (07/22/23 5:14 PM) Invalid Interpretation Code 5.0 - 9.0 [facility] UA Auto SS Protein (U) [Mass/Vol] Trace *ABN* (07/22/23 5:14 PM) Invalid Interpretation Code Negative [facility] UA Auto SS Specific gravity (U) [Rel density] 1.020 *NA* (07/22/23 5:14 PM) Invalid Interpretation Code 1.005 - 1.030 [facility] UA Auto SS UA Spec Desc Clean Catch (07/22/23 5:14 PM) Normal [facility] UA Auto SS Urobilinogen Qn (U) 1.9120170 {Markel'U}/dL Normal 0.0 - 1.0 EU/dL [facility] UA Auto SS WBC Auto Ql (U) Negative (07/22/23 5:14 PM) Normal Negative [facility] UA Auto SS WBC LM.HPF (Urine sed) [#/Area] 0-5 /HPF Normal 0-5/HPF [facility] UA Auto SS Physician Orderon 06-19-2023 Physician Order [id number]#1.00TIFF Normal [facility] In office Testingon 06-11-19 24 In office Testing [id number] 52#1.00TIFF Normal [facility] Consenton 06-10-2023 Consent [id number] 63#1.00TIFF [facility] Registrationon 06-10-2023 Registration [id number]#1.00TIFF [facility] C Urineon 05-07-2023 Bacteria identified Cx Nom (U) Microbiology PROCEDURE: Urine Culture [R1] SOURCE: U CleanCatch BODY SITE: COLLECTED DATE/TIME: 05/05/2023 01:28 EST RECEIVED DATE/TIME: 05/05/2023 02:42 EST START DATE/TIME: 05/05/2023 02:42 EST FREE TEXT SOURCE: Pedro Soriano DO, DO, Pedro Buck FINAL REPORTS Final Report [] Verified Date/Time: 05/07/2023 11:08 EST >100,000 cfu/ml Escherichia coli SUSCEPTIBILITY RESULTS LEGEND: S=Susceptible, N/R=Not Reported, Blank=Data not available, or drug not advisable or tested, I=Intermediate, ESBL=Extended spectrum beta-lactamase, R=Resistant, TFG=Thymidine-depen dent strain, ALETHEA=Beta-lactamase positive, CAREN=mcg/m;(mg/L), S*=Predicted susceptible interp, R*=Predicted resistant interp EC Antibiotic CAREN Dilutn CAREN Interp Amikacin <=16 S Ampicillin >16 R Ampicillin/ >16/8 R Sulbactam Aztreonam <=4 S Cefazolin <=2 S Cefepime <=2 S Cefoxitin <=8 S Ceftazidime <=1 S Ceftazidime/ <=8 S Avibactam Ceftriaxone <=1 S Ciprofloxacin <=1 S Ertapenem <=0.5 S Gentamicin <=4 S Levofloxacin <=2 S Meropenem <=1 S Nitrofurantoin <=32 S Piperacillin/ <=16 S Tazobactam Tetracycline <=4 S Tigecycline <=2 S Tobramycin <=4 S Trimethoprim/ <=2/38 S Sulfa Performing Locations R1: This test was performed at: [facility], [address] [place] [address], [address] , , [facility] Comment on above: Performed By: #### 2 [id number], [id number], [id number] ####[facility] [address] [place] [address] Consent for Treatmenton 04-10 Consent for Treatment [id number] D0#1.00TIFF Normal [facility] Discharge Instructionson Discharge Instructions [id number]#1.00TIFF Normal [facility] ED Clinical Summaryon 2022 ED Clinical Summary [address] [address] ED Clinical Summary Person Information Name: EDDIE ANTONIO [facility] Age: 23 Years : 2000 Sex: Female Language: Ukrainian PCP: Valdemar Pickard DO Marital Status: Single Visit Id: Visit Reason: Abdominal pain; Hematuria; Dysuria; blood in urine frequent urinination pain burning pelvic area Speciality: Acuity: 3 Enc Type: Emergency Med Service: Emergency Arrival: 05/05/2023 01:10:53 Discharge: 05/05/2023 02:05:14 LOS: 000 00:55 Checkin: 05/05/2023 01:10:53 Checkout: 05/05/2023 02:05:14 Dispo Type: Home (Routine DC) EVENTS: Event Name Event Status Request Date/Time Start Date/Time Complete Date/Time Arrive Complete 05/05/2023 01:10:53 05/05/2023 01:10:53 05/05/2023 01:10:53 Document Home Meds Request 05/05/2023 01:10:53 Triage Complete 05/05/2023 01:10:53 05/05/2023 01:19:30 05/05/2023 01:19:30 Dr Exam Complete 05/05/2023 01:13:26 05/05/2023 01:13:26 05/05/2023 01:13:26 Registration Complete 05/05/2023 01:13:26 05/05/2023 01:15:14 05/05/2023 01:15:14 Pending Labs Complete 05/05/2023 01:13:49 05/05/2023 01:53:47 Lab Complete 05/05/2023 01:13:49 05/05/2023 01:53:47 Urine Collect Complete 05/05/2023 01:13:49 05/05/2023 01:53:47 Reg Complete Request 05/05/2023 01:15:14 Reg Bed Request Complete 05/05/2023 01:15:14 05/05/2023 01:15:14 05/05/2023 01:15:14 Bed Assign Complete 05/05/2023 01:17:27 05/05/2023 01:17:27 05/05/2023 01:17:27 RN Exam Complete 05/05/2023 01:17:27 05/05/2023 01:27:12 05/05/2023 01:27:12 Pending Labs Collected 05/05/2023 01:53:48 05/05/2023 01:53:48 Lab Collected 05/05/2023 01:53:48 05/05/2023 01:53:48 Meds Admin Complete 05/05/2023 01:55:00 05/05/2023 02:03:18 Discharge Complete 05/05/2023 01:59:41 05/05/2023 02:05:18 05/05/2023 02:05:18 Transfer Complete 05/05/2023 02:05:18 05/05/2023 02:05:18 05/05/2023 02:05:18 ADDRESS: [address] [place] [id number] [facility] DOC NOTES: MEDICAL INFORMATION: Prescriptions Given: New Medications [facility] #[id number], [address] [place], [place] [id number], [phone] cephalexin (Keflex 500 mg Cap) 1 Capsules By Mouth every 12 hours for 7 Days. Refills: 0. phenazopyridine (Pyridium 100 mg Tab) 1 Tablets By Mouth 3 times a day for 3 Days. Refills: 0. PATIENT EDUCATION INFORMATION: Instructions: Urinary Tract Infection, Adult Follow up: With: Address: When: Valdemar Link [address] [place] [address] Business (1) In 3 days DIAGNOSIS: Acute UTI Normal [facility] ED Note-Physicianon 05-05-20 ED Note-Physician Basic Information Time Seen: Pedro Soriano DO 05/05/2023 01:13 Chief Complaint complains of pain with urination. hematuria tonight. denies fever or nausea. lower pelvic pain. took naprosyn at 2300 History of Present Illness HPI: Patient is a 23-year-old female who presents the ED for dysuria, blood in her urine, and suprapubic abdominal discomfort. Patient states that this for started yesterday where she felt like she had some light cramping. Today she started feeling burning and discomfort with urination and then started noticing blood-tinged urine. She states she has had UTIs in the past but never had that in the past. She denies any flank pain with this. She denies any fever or chills. She denies any nausea or vomiting. She tried taking 500 mg of naproxen at 2300 but only had minimal relief. ROS: Pertinent review of systems conducted and is negative except as noted above. Physical exam: General: nontoxic appearing and in no distress HEENT: Mucous membranes moist Neuro: awake and alert Neck: supple, trachea midline Card: Heart regular rate and rhythm no murmur Resp: Lungs clear to auscultation no wheeze or rhonchi Abd: Soft and nondistended. Slight suprapubic tenderness without rebound or guarding. No CVA tenderness. Ext: No gross deformity or edema Physical Exam Vitals & Measurements T: 36.7 ?C(Oral) HR: 78(Peripheral) RR: 16 BP: 129/80 SpO2: 100% HT: 156 cm WT: 87.6 kg BMI: 36 Medical Decision Making MEDICAL DECISION MAKING Number and Complexity of Problems Differential Diagnosis: [] [facility] Data External documents reviewed: N/A My EKG interpretation: Noted in chart if applicable My CT interpretation: N/A My X-ray interpretation: Noted in chart if applicable My Ultrasound interpretation: N/A Decision rules/scores evaluated: N/A Discussed with: N/A Treatment and Disposition ED Course: Patient is nontoxic-appearing no distress. She is afebrile here in the ED. Her abdomen is soft and minimally tender in the suprapubic area and is midline. She has symptoms concerning for UTI so we will obtain a urinalysis and urine hCG. test is negative. The urine is suspicious for UTI and that fits the symptoms. Will give her a dose of Pyridium and Keflex here in the ED. Will write her prescription for both these medications as well. Discussed the need for oral hydration and close follow-up with her primary care physician as well as return precautions. Patient was discharged stable condition. Shared decision making: As above Code status: N/A Assessment/Plan Acute UTI (N39.0: Urinary tract infection, site not specified) Orders: cephalexin, 500 mg = 1 cap(s), Cap, Oral, Once, Stop date 05/05/23 1:54:00 EST, STAT, Start date 05/05/23 1:54:00 EST, 05/05/23 1:54:00 EST cephalexin, 500 mg = 1 cap(s), Oral, q12hr, X 7 day(s), # 14 cap(s), Refills(s) 0, Pharmacy: [facility] #[id number], 156, cm, 05/05/23 1:19:00 EST, Height/Length Dosing, 87.6, kg, 05/05/23 1:19:00 EST, Weight Dosing phenazopyridine, 100 mg = 1 tab(s), Tab, Oral, Once, Stop date 05/05/23 1:54:00 EST, STAT, Start date 05/05/23 1:54:00 EST, 05/05/23 1:54:00 EST phenazopyridine, 100 mg = 1 tab(s), Oral, TID, X 3 day(s), # 9 tab(s), Refills(s) 0, Pharmacy: [facility] #[id number], 156, cm, 05/05/23 1:19:00 EST, Height/Length Dosing, 87.6, kg, 05/05/23 1:19:00 EST, Weight Dosing U Beta Hcg Qual UA With Cult Reflex Urine Culture Disposition Plan Discharge Prescription List Prescriptions Keflex 500 mg Cap, 500 mg= 1 cap(s), Oral, q12hr Pyridium 100 mg Tab, 100 mg= 1 tab(s), Oral, TID Follow-up With When Contact Information Valdemar Link In 3 days [address] [place] [address]- Business (1) Additional Instructions: Patient Education Urinary Tract Infection, Adult Problem List/Past Medical History Ongoing Abnormal uterine bleeding (AUB) Allergic rhinitis, seasonal Anxiety disorder NOS Class 2 obesity with body mass index (BMI) of 36.0 to 36.9 in adult Dysmenorrhea ESBL 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 Medications Inpatient No active inpatient medications Home Adipex-P 37.5 mg oral capsule, 37.5 mg= 1 cap(s), Oral, Daily ethinyl estradiol-levonorge strel biphasic extended cycle oral tablet, 1 tab(s), Oral, Daily Allergies Advil (Vomiting) Social History Alcohol - Denies Alcohol Use, 05/17/2020 Current, Liquor, 1-2 times per week, 4 drinks/episode average. 6.00 drinks/episode maximum. Started age 19 Years. Previous treatment: None. Alcohol use interferes with work or home: No. Drinks more than intended: Yes. Others hurt by drinking: N (more content not included)... Normal [facility] Comment on above: Result Comment: Elec tronically Signed By: Pedro Soriano DO\.br\Date and Time Signed: 05/05/23 02:00 [facility] ED Patient Education Noteon 05-05-2023 ED Patient Education Note Obstetrics and Gynecology Urinary Tract Infection, Adult A urinary tract infection (UTI) is an infection of any part of the urinary tract. The urinary tract includes the kidneys, ureters, bladder, and urethra. These organs make, store, and get rid of urine in the body. An upper UTI affects the ureters and kidneys. A lower UTI affects the bladder and urethra. What are the causes? Most urinary tract infections are caused by bacteria in your genital area around your urethra, where urine leaves your body. These bacteria grow and cause inflammation of your urinary tract. What increases the risk? You are more likely to develop this condition if: ? You have a urinary catheter that stays in place. ? You are not able to control when you urinate or have a bowel movement (incontinence). ? You are female and you: ? Use a spermicide or diaphragm for control. ? Have low estrogen levels. ? Are . ? You have certain genes that increase your risk. ? You are sexually active. ? You take antibiotic medicines. ? You have a condition that causes your flow of urine to slow down, such as: ? An enlarged prostate, if you are male. ? Blockage in your urethra. ? A kidney stone. ? A nerve condition that affects your bladder control (neurogenic bladder). ? Not getting enough to drink, or not urinating often. ? You have certain medical conditions, such as: ? Diabetes. ? A weak disease-fighting system (immunesystem). ? Sickle cell disease. ? Gout. ? Spinal cord injury. What are the signs or symptoms? Symptoms of this condition include: ? Needing to urinate right away (urgency). ? Frequent urination. This may include small amounts of urine each time you urinate. ? Pain or burning with urination. ? Blood in the urine. ? Urine that smells bad or unusual. ? Trouble urinating. ? Cloudy urine. ? Vaginal discharge, if you are female. ? Pain in the abdomen or the lower back. You may also have: ? Vomiting or a decreased appetite. ? Confusion. ? Irritability or tiredness. ? A fever or chills. ? Diarrhea. The first symptom in older adults may be confusion. In some cases, they may not have any symptoms until the infection has worsened. How is this diagnosed? This condition is diagnosed based on your medical history and a physical exam. You may also have other tests, including: ? Urine tests. ? Blood tests. ? Tests for STIs (sexually transmitted infections). If you have had more than one UTI, a cystoscopy or imaging studies may be done to determine the cause of the infections. How is this treated? Treatment for this condition includes: ? Antibiotic medicine. ? Wnqr-ndd-abvmjfm medicines to treat discomfort. ? Drinking enough water to stay hydrated. If you have frequent infections or have other conditions such as a kidney stone, you may need to see a health care provider who specializes in the urinary tract (urologist). In rare cases, urinary tract infections can cause sepsis. Sepsis is a life-threatening condition that occurs when the body responds to an infection. Sepsis is treated in the hospital with IV antibiotics, fluids, and other medicines. Follow these instructions at home: Medicines ? Take cnph-epb-mxllbag and prescription medicines only as told by your health care provider. ? If you were prescribed an antibiotic medicine, take it as told by your health care provider. Do not stop using the antibiotic even if you start to feel better. General instructions ? Make sure you: ? Empty your bladder often and completely. Do not hold urine for long periods of time. ? Empty your bladder after sex. ? Wipe from front to back after urinating or having a bowel movement if you are female. Use each tissue only one time when you wipe. ? Drink enough fluid to keep your urine pale yellow. ? Keep all follow-up visits. This is important. Contact a health care provider if: ? Your symptoms do not get better after 1?2 days. ? Your symptoms go away and then return. Get help right away if: ? You have severe pain in your back or your lower abdomen. ? You have a fever or chills. ? You have nausea or vomiting. Summary ? A urinary tract infection (UTI) is an infection of any part of the urinary tract, which includes the kidneys, ureters, bladder, and urethra. ? Most urinary tract infections are caused by bacteria in your genital area. ? Treatment for this condition often includes antibiotic medicines. ? If you were prescribed an antibiotic medicine, take it as told by your health care provider. Do not stop using the antibiotic even if you start to feel better. ? Keep all follow-up visits. This is important. This information is not intended to replace advice given to you by your health care provider. Make sure you discuss any questions you have with your health care provider. Document Revised: 01/05/2021 Document Revie (more content not included)... Normal [facility] ED Patient Summaryon 023 ED Patient Summary [address] [address] Patient Discharge Instructions Person Information Name: EDDIE ANTONIO Age: 23 Years Arrival Date: 05/05/2023 01:10:53 Discharge Diagnosis: Acute UTI Primary Care Physician: Valdemar Pickard DO Provider Information Primary Provider: Pedro Soriano DO Advanced Alligator Shear Operator:None The exam and treatment you received in the Emergency Department were for an urgent problem and are not intended as complete care. It is important that you follow up with a doctor, nurse practitioner, or physician?s assistant professor of biology for ongoing care. If your symptoms become worse or you do not improve as expected and you are unable to reach your usual health care provider, you should return to the Emergency Department. We are available 24 hours a day. EDDIE ANTONIO has been given the following list of patient education materials, prescriptions and follow-up instructions: Follow-up Instructions: With: Address: When: Valdemar Pickard [address] [place] [address] Business (1) In 3 days In the event that this physician does not participate in your insurance network, please consult with your insurance company to find a nearby participating provider. Patient Education Materials: Urinary Tract Infection, Adult A MESSAGE TO ALL PATIENTS REGARDING OPIOIDS PRESCRIPTION OPIOIDS: WHAT YOU NEED TO KNOW Prescription opioids can be used to help relieve omvlvdhr-cn-sctzfo pain and are often prescribed following a surgery or injury, or for certain health conditions. These medications can be an important part of the treatment but also come with serious risks. It is important to work with your healthcare provider to make sure you are getting the safest, most effective care. WHAT ARE THE RISKS AND SIDE EFFECTS OF OPIOID USE? Prescription opioids carry serious risks of addiction and overdose, especially with prolonged use. An opioid overdose, often marked by slowed breathing, can cause sudden . The use of prescription opioids can have a number of side effects as well, even when taken as directed: ? Tolerance?meaning you might need to take more of the medication for the same pain relief ? Physical dependence?meaning you have symptoms of withdrawal when a medication is stopped ? Increased sensitivity to pain ? Constipation ? Nausea, vomiting, and dry mouth ? Sleepiness and dizziness ? Confusion ? Depression ? Low levels of testosterone that can result in lower sex drive, energy, and strength ? Itching and sweating RISKS ARE GREATER WITH: ? History of drug misuse, substance use disorder, or overdose ? Mental health conditions (such as depression or anxiety) ? Sleep apnea ? Older age (65 years and older) ? Avoid alcohol while taking prescription opioids. Also, unless specifically advised by your health care provider, medications to avoid include: ? Benzodiazepines (such as Xanax or Valium) ? Muscle relaxants (such as Soma or Flexeril) ? Hypnotics (such as Ambien or Lunesta) ? Other prescription opioids KNOW YOUR OPTIONS Talk to your health care provider about ways to manage your pain that don?t involve prescription opioids. Some of these options may actually work better and have fewer risks and side effects. Options may include: ? Pain relievers such as acetaminophen, ibuprofen, and naproxen ? Some medication that are also used for depression or seizures ? Physical therapy and exercise ? Cognitive behavioral therapy, a psychological, goal-directed approach, in which patients learn how to modify physical, behavioral, and emotional triggers of pain and stress. IF YOU ARE PRESCRIBED OPIOIDS FOR PAIN: ? Never take opioids in greater amounts or more often than prescribed. ? Follow up with your primary health care provider. o Work together to create a plan on how to manage your pain. o Talk about ways to help manage your pain that don?t involve prescription opioids. o Talk about any and all concerns and side effects. ? Help prevent misuse and abuse o Never sell or share prescription opioids. o Never use another person?s prescription opioids. ? Store prescription opioids in a secure place and out of reach of others (this may include visitors, children, friends, and family). ? Safely dispose of unused prescription opioids: Find your community drug take-back program or your pharmacy mail-back program, or flush them down the toilet, following guidance from the Food and Drug Administration (www.fda.gov/Drugs/ ResourcesForYou). ? Visit www.cdc.gov/drugove rdose to learn about the risks of opioids abuse and overdose. ? If you believe you may be struggling with addiction, tell your health care clinician and ask for guidance or call SAMHSA?S National Helpline at 2-527-099-HELP. v Source: [place] Department of (more content not included)... Normal [facility] Prescriptions/Work Noteson 1 07-05-2022 Prescriptions/Work Notes [id number] [facility] SEROLOGYOrdered By: Coni Becerra on 05-05-2023 HCG.beta subunit (U) [Moles/Vol] Negative Normal [facility] Man Sero U BetaHcg Qualon 05-05-2023 HCG.beta subunit (U) [Moles/Vol] Negative Normal [facility] Comment on above: Performed By: #### 2 [id number], [id number], [id number] ####[facility] [address] [place] [address] UA With Cult Reflexon 2022 Bacteria LM Ql (Urine sed) TRACE Normal Trace [facility] Comment on above: Performed By: #### 2 [id number], [id number], [id number] ####[facility] [address] [place] [address] Bilirubin Ql (U) Negative Normal Negative [facility] Comment on above: Performed By: #### 2 693398, [id number], [id number] ####[facility] [address] [place], [place] [address] Clarity (U) SL CLOUDY Abnormal Clear [facility] Comment on above: Performed By: #### 2 882223, [id number], [id number] ####[facility] [address] [place] [address] Color (U) YELLOW Normal Yellow [facility] Comment on above: Performed By: #### 2 673885, [id number], [id number] ####[facility] [address] [place] [address] Epithelial cells.squamous LM.HPF (Urine sed) [#/Area] 0-2 Normal 0-2 [facility] Comment on above: Performed By: #### 2 088315, [id number], [id number] ####[facility] [address] [place] [address] Glucose Test strip (U) [Mass/Vol] Negative Normal Negative [facility] Comment on above: Performed By: #### 2 599744, [id number], [id number] ####[facility] [address] [place] [address] Hemoglobin Ql (U) 3+ Abnormal Negative [facility] Comment on above: Performed By: #### 2 240716, [id number], [id number] ####[facility] [address] [place] [address] Ketones (U) [Mass/Vol] TRACE Abnormal Negative [facility] Comment on above: Performed By: #### 2 245338, [id number], [id number] ####[address] [address] [place].plasma/[place].R BC (Bld) [Mass ratio] 4-20 Normal 0-3 [facility] Comment on above: Performed By: #### 2 433732, [id number], [id number] ####[address] [address] Mucus Ql (Urine sed) 1+ Normal Fish er [facility] Comment on above: Performed By: #### 2 178873, [id number], [id number] ####[address] [address] Nitrite Ql (U) Negative Normal Negative [facility] Comment on above: Performed By: #### 2 615944, [id number], [id number] ####[address] [address] pH (U) 6.0 [pH] Invalid Interpretation Code 5.0-9.0 [facility] Comment on above: Performed By: #### 2 370256, [id number], [id number] ####[address] [address] Protein (U) [Mass/Vol] 2+ Abnormal Negative [facility] Comment on above: Performed By: #### 2 496817, [id number], [id number] ####[address] [address] Specific gravity (U) [Rel density] >=1.030 Invalid Interpretation Code 1.005-1.030 [facility] Comment on above: Performed By: #### 2 286803, [id number], [id number] ####[facility] [address] [place] [address] Type of Urine collection method Clean Catch Normal [facility] Comment on above: Performed By: #### 2 818805, [id number], [id number] ####[facility] [address] [place] [address] Urobilinogen Qn (U) 0.2 {Markel'U}/dL Normal 0.0-1.0 [facility] Comment on above: Performed By: #### 2 251616, [id number], [id number] ####[facility] [address] [place] [address] WBC Auto Ql (U) TRACE Abnormal Negative [facility] Comment on above: Performed By: #### 2 230410, [id number], [id number] ####[facility] [address] [place] [address] WBC LM.HPF (Urine sed) [#/Area] 6-15 Abnormal 0-5 [facility] Comment on above: Performed By: #### 2 338046, [id number], [id number] ####[facility] [address] [place], [place] [address] URINALYSISOrdered By: Jazzy Becerra on 05-05-2023 Bacteria LM Ql (Urine sed) Trace /HPF Normal Trace/HPF FT UA Auto SS Bilirubin Ql (U) Negative (05/05/23 1:28 AM) Normal Negative [facility] UA Auto SS Clarity (U) Slightly Cloudy *ABN* (05/05/23 1:28 AM) Invalid Interpretation Code Clear [facility] UA Auto SS Color (U) Yellow (05/05/23 1:28 AM) Normal Yellow [facility] UA Auto SS Epithelial cells.squamous LM.HPF (Urine sed) [#/Area] 0-2 /HPF Normal 0-2/HPF [facility] UA Aut o SS Glucose Test strip (U) [Mass/Vol] Negative (05/05/23 1:28 AM) Normal Negative [facility] UA Auto SS Hemoglobin Ql (U) 3+ *ABN* (05/05/23 1:28 AM) Invalid Interpretation Code Negative [facility] UA Auto SS Ketones (U) [Mass/Vol] Trace *ABN* (05/05/23 1:28 AM) Invalid Interpretation Code Negative [facility] UA Auto SS [place].plasma/[place].R BC (Bld) [Mass ratio] 4-20 /HPF Normal 0-3/HPF [facility] UA Au to SS Mucus Ql (Urine sed) 1+ (05/05/23 1:28 AM) Normal [facility] UA Auto SS Nitrite Ql (U) Negative (05/05/23 1:28 AM) Normal Negative [facility] UA Auto SS pH (U) 6.0 *NA* (05/05/23 1:28 AM) Invalid Interpretation Code 5.0 - 9.0 [facility] UA Auto SS Protein (U) [Mass/Vol] 2+ *ABN* (05/05/23 1:28 AM) Invalid Interpretation Code Negative [facility] UA Auto SS Specific gravity (U) [Rel density] >=1.030 *NA* (05/05/23 1:28 AM) Invalid Interpretation Code 1.005 - 1.030 [facility] UA Auto SS UA Spec Desc Clean Catch (05/05/23 1:28 AM) Normal FT UA Auto SS Urobilinogen Qn (U) 0.8688150 {Markel'U}/dL Normal 0.0 - 1.0 EU/dL [facility] UA Auto SS WBC Auto Ql (U) Trace *ABN* (05/05/23 1:28 AM) Invalid Interpretation Code Negative [facility] UA Auto SS WBC LM.HPF (Urine sed) [#/Area] 6-15 /HPF Invalid Interpretation Code 0-5/HPF [facility] UA Auto SS BMPon 04-03-2023 Anion gap [Moles/Vol] 11 mmol/L Normal 6-16 [facility] Comment on above: Performed By: #### 1 [id number], [id number], [id number] ####[facility] [address] [place] [address] Calcium [Mass/Vol] 9.0 mg/dL Normal 8.9-11.1 [facility] Comment on above: Performed By: #### 1 [id number], [id number], [id number] ####[facility] [address] [place] [address] Chloride [Moles/Vol] 106 mmol/L Normal 101-111 [facility] Comment on above: Performed By: #### 1 [id number], [id number], [id number] ####[facility] [address] [place] [address] CO2 [Moles/Vol] 23 mmol/L Normal 21-31 [facility] Comment on above: Performed By: #### 1 [id number], [id number], [id number] ####[facility] [address] [place] [address] Creatinine [Mass/Vol] 0.6 mg/dL Normal 0.5-1.3 [facility] Comment on above: Performed By: #### 1 0949321, [id number], [id number] ####[facility] [address] [place] [address] Glucose [Mass/Vol] 87 mg/dL Normal 55-199 [facility] Comment on above: Result Comment: If t his glucose result represents a fasting glucose, interpretation should refer to the following reference range: 55-99 mg/dL Performed By: #### 1 [id number], [id number], [id number] ####[facility] [address] [place] [address] Potassium [Moles/Vol] 3.9 mmol/L Normal 3.5-5.3 [facility] Comment on above: Performed By: #### 1 [id number], [id number], [id number] ####[facility] [address] [place] [address] Sodium [Moles/Vol] 136 mmol/L Normal 135-145 [facility] Comment on above: Performed By: #### 1 [id number] ####[facility] [address] [place] [address] Urea nitrogen [Mass/Vol] 10 mg/dL Normal 5-21 [facility] Comment on above: Performed By: #### 1 [id number], [id number], [id number] ####[facility] [address] [place] [address] Urea nitrogen/Creatinine [Mass ratio] 17 No Units Normal -20 [facility] Comment on above: Performed By: #### 1 [id number], [id number], [id number] ####[facility] [address] [place] [address] BhCG Quanton 04-03-2023 HCG.beta subunit Qn m[IU]/mL Normal 1-3 [facility] Comment on above: Result Comment: GEST ATIONAL AGE HCG RANGE (mIU/mL) NON- <1-3 0.2-1 WEEKS 5-50 1-2 WEEKS 50-500 2-3 WEEKS 100-5,000 3-4 WEEKS 500-10,000 4-5 WEEKS 1,000-50,000 5-6 WEEKS 10,000-100,000 6-8 WEEKS 15,000-200,000 8-12 WEEKS 10,000-100,000 Performed By: #### 2 [id number] ####[facility] [address] [place] [address] Consent for Treatmenton 03-10 Consent for Treatment [id number] 3 [id number] 18#1.00TIFF Normal [facility] TSH With T4fr Reflexon 04-03 TSH Qn 1.03 m[IU]/L Normal 0.34-5.60 [facility] Comment on above: Performed By: #### 1 [id number], [id number], [id number] ####[facility] [address] [place] [address] eGFRon 04-03-2023 GFR/1.73 sq M.predicted among non-blacks MDRD (S/P/Bld) [Vol rate/Area] 130 mL/min/1.73 m2 Normal >=59 [facility] Comment on above: Order Comment: Order added by Discern Expert. Result Comment: Athletic Equipment Manager brittanie kidney disease could be indicated at eGFR's of less than 60 mL/min/1.73m2. Kidney failure is indicated at less than 15 mL/min/1.73m2. Performed By: #### 1 [id number], [id number], [id number] ####[facility] [address] [place] [address] C Urineon 11-24-2022 Bacteria identified Cx Nom (U) Microbiology PROCEDURE: Urine Culture [R1] SOURCE: U CleanCatch BODY SITE: COLLECTED DATE/TIME: 11/21/2022 15:52 EDT RECEIVED DATE/TIME: 11/22/2022 12:56 EDT START DATE/TIME: 11/22/2022 12:56 EDT FREE TEXT SOURCE: Orzech COUNTING MACHINE OPERATOR, ALLIANCES CONSULTANT-C, Orzech COUNTING MACHINE OPERATOR, ALLIANCES CONSULTANT-C, Kayla X Kayla X FINAL REPORTS Final Report [] Verified Date/Time: 11/24/2022 09:19 EDT 20,000 cfu/ml Escherichia coli ESBL SUSCEPTIBILITY RESULTS LEGEND: S=Susceptible, N/R=Not Reported, Blank=Data not available, or drug not advisable or tested, I=Intermediate, ESBL=Extended spectrum beta-lactamase, R=Resistant, TFG=Thymidine-depen dent strain, ALETHEA=Beta-lactamase positive, CAREN=mcg/m;(mg/L), S*=Predicted susceptible interp, R*=Predicted resistant interp ECESBL Antibiotic CAREN Dilutn CAREN Interp Amikacin <=16 S Ampicillin >16 R* Ampicillin/ 16/8 I Sulbactam Aztreonam 8 ESBL Cefazolin >16 R* Cefepime 4 R* Cefoxitin <=8 S Ceftazidime 8 ESBL Ceftazidime/ <=8 S Avibactam Ceftriaxone >32 ESBL Ciprofloxacin <=1 S Ertapenem <=0.5 S Gentamicin <=4 S Levofloxacin <=2 S Meropenem <=1 S Nitrofurantoin <=32 S Piperacillin/ <=16 S Tazobactam Tetracycline >8 R Tigecycline <=2 S Tobramycin <=4 S Trimethoprim/ <=2/38 S Sulfa Performing Locations R1: This test was performed at: [facility], [address] [place] [address], [address] , , Normal [facility] Comment on above: Performed By: #### 2 [id number] ####[facility] [address] [place] [address] Ambulatory Visit Summaryon 0 11-21-2022 Ambulatory Visit Summary EDDIE ANTONIO :2000 Visit Date:11/21/2022 Ambulatory Visit Instructions Your Diagnosis Urinary tract infection BMI 37.0-37.9, adult Obesity due to excess calories Dysuria Tests Performed Urnls Dip Stick Non-Auto w/o Micrscpy POC 04840 Your Care Team Attending Physician - ALESHA Mills APRN, Kayla Arias Primary Care Physician - Valdemar Pickard DO This Is Your Medications List phenazopyridine (Pyridium 100 mg Tab) sulfamethoxazole-tr imethoprim (Bactrim D.S. 800 mg-160 mg Tab) Contact prescribing physician if questions or concerns ethinyl estradiol-levonorge strel (ethinyl estradiol-levonorge strel biphasic extended cycle oral tablet) phentermine (Adipex-P 37.5 mg oral capsule) Procedures Performed Diagnostic endoscopy (2013). Discharge Vitals Temperature (Oral) 36.3 ?C Heart Rate (Peripheral) 77 Blood Pressure 122/76 Height 155 cm Height 61 in Weight 89.5 kg Weight 196.9 lb BMI 37.25 What to do next You Need to Schedule the Following Appointments Follow Up with Valdemar Pickard DO When: Where: [address] [facility] [place] [address]- Medications What How Much When Why Instructions New phenazopyridine (Pyridium 100 mg Tab) 1 Tablets By Mouth 3 times a day as needed for Urinary discomfort Urinary tract infection Duration: 3 Days Pickup at [facility]pharmacy #[id number] New sulfamethoxazole-tr imethoprim (Bactrim D.S. 800 mg-160 mg Tab) 1 Tablets By Mouth 2 times a day Urinary tract infection Duration: 5 Days Pickup at [facility]pharm[facility] #[id number] Unchanged ethinyl estradiol-levonorge strel (ethinyl estradiol-levonorge strel biphasic extended cycle oral tablet) 1 Tablets By Mouth Every day Contact prescribing physician if questions or concerns Unchanged phentermine (Adipex-P 37.5 mg oral capsule) 1 Capsules By Mouth Every day Contact prescribing physician if questions or concerns Pharmacy Information [facility] #[id number]: [address] [place], [place] [id number] [phone] Test Results Urnls Dip Stick Non-Auto w/o Micrscpy POC 03600 (11/21/2022) Bilirubin Urine Dipstick - Negative Blood Urine Dipstick - 3+ Large Glucose Urine Dipstick - Negative Ketones Urine Dipstick - Negative Leukocytes Urine Dipstick - 3+ Large Nitrite Urine Dipstick - Negative Protein Urine Dipstick - 1+ (30 mg/dl) Specific [place] Urine Dipstick - 1.020 Urine Appearance Urine Dipstick - Cloudy Urine Color Urine Dipstick - Yellow Urobilinogen Urine Dipstick - Normal 0.2-1 EU/dl pH Urine Dipstick - 6.5 Medications and Immunizations Administered Not Given SARS-CoV-2 mRNA (tozinameran 5y-11y) vac, Patient Refuses Allergies Advil (Vomiting) Problems Ongoing - Any problem that you are currently receiving treatment for. Abnormal uterine bleeding (AUB) Allergic rhinitis, seasonal Anxiety disorder NOS Class 2 obesity with body mass index (BMI) of 36.0 to 36.9 in adult Dysmenorrhea High risk medication use Hypoglycemia Irregular menses Irritable bowel syndrome with constipation Moderate bipolar I disorder, current or most recent episode depressed, with mixed features Reactive airway disease with wheezing Historical - Any problem that you are no longer receiving treatment for. Frontal headache IBS (irritable bowel syndrome) Pelvic pain Education Materials Urinary Tract Infection, Adult A urinary tract infection (UTI) is an infection of any part of the urinary tract. The urinary tract includes the kidneys, ureters, bladder, and urethra. These organs make, store, and get rid of urine in the body. An upper UTI affects the ureters and kidneys. A lower UTI affects the bladder and urethra. What are the causes? Most urinary tract infections are caused by bacteria in your genital area around your urethra, where urine leaves your body. These bacteria grow and cause inflammation of your urinary tract. What increases the risk? You are more likely to develop this condition if: ? You have a urinary catheter that stays in place. ? You are not able to control when you urinate or have a bowel movement (incontinence). ? You are female and you: ? Use a spermicide or diaphragm for control. ? Have low estrogen levels. ? Are . ? You have certain genes that increase your risk. ? You are sexually active. ? You take antibiotic medicines. ? You have a condition that causes your flow of urine to slow down, such as: ? An enlarged prostate, if you are male. ? Blockage in your urethra. ? A kidney stone. ? A nerve condition that affects your bladder control (neurogenic bladder). ? Not getting enough to drink, or not urinating often. ? You have certain medical conditions, such as: ? Diabetes. ? A weak disease-fighting system (immunesystem). ? Sickle cell disease. ? Gout. ? Spinal cord injury. What are the signs or symptoms? Symptoms (more content not included)... Normal [facility] Family Medicine Office/Clini c Noteon 11-21-2022 Family Medicine Office/Clinic Note Chief Complaint EST uti HPI Staff 22 year old female presents with UTI symptoms onset was 5 days ago Frequency-yes Urgency-yes Small volume void- yes Dysuria- yes Pressure- mccarthy Back pain- yes Nocturia- yes Fever/chills- no Nausea/vomiting- no LMP now Denies abnormal vaginal discharge Denies concern for STD at this time UTI or other reason for antbx's last 30 days- no History of Present Illness I have reviewed and verified the staff HPI to be accurate for this encounter. Portions of this record may have been created with voice recognition artificial intelligence software, specifically [employer], [employer] and or [employer] Substitutions may have occurred due to the inherent limitations of voice recognition and artificial intelligence software. Review of Systems PHQ Score Initial Depression Screen Score: 0 Physical Exam Vitals & Measurements T: 36.3 ?C(Oral) HR: 77(Peripheral) BP: 122/76 SpO2: 98% HT: 61 in HT: 155 cm WT: 89.5 kg WT: 196.9 lb BMI: 37.25 General: _ Pleasant, obese female in no acute distress. Mouth: _ Mucous membranes moist, tongue normal. Lungs: Normal respiratory effort and clear to auscultation Cardio: regular rate and rhythm, no murmur Abdomen: Soft, non-distended, non-tender. No CVA tenderness to percussion. Mental Status: Alert and oriented x3. Normal mood and affect Assessment/Plan 1. Urinary tract infection (N39.0: Urinary tract infection, site not specified) UA with large blood, large leukocytes. Will treat with Bactrim. PRN pyridium rx sent for symptomatic tx. Finish course of ATB. Fluids/rest. Will cx urine and notify of results in 3-5 days. Fu with PCP if not improving over next 3-4 days with ATB or worsening. Patient verbalized understanding of tx plan. Ordered: phenazopyridine, 100 mg = 1 tab(s), Oral, TID, PRN Urinary discomfort, X 3 day(s), # 9 tab(s), Refills(s) 0, Pharmacy: [facility]pharmacy #[id number], 155, cm, 11/21/22 15:42:00 EDT, Height/Length Dosing, 89.5, kg, 11/21/22 15:42:00 EDT, Weight Dosing sulfamethoxazole-tr imethoprim, 1 tab(s), Oral, BID for 5 day(s), 10 tab(s), Refill(s) 0, [id number], 155, cm, 11/21/22 15:42:00 EDT, Height/Length Dosing, 89.5, kg, 11/21/22 15:42:00 EDT, Weight Dosing 2. BMI 37.0-37.9, adult (Z68.37: Body mass index [BMI] 37.0-37.9, adult) The standard range for ages 18 and older is >=18.5 and < 25 kg/m2. Your BMI today was above this range, this falls in the overweight to obese category and there are medical benefits to weight loss. We can offer counselling, referral, and/or medical support in addressing this problem. Your BMI and weight management will be followed at subsequent visits. Ordered: Body Mass Index (BMI) documented 3008F 3. Obesity due to excess calories (E66.09: Other obesity due to excess calories) see #2, diet/exercise Dysuria (R30.0: Dysuria) Ordered: Urine Culture Urnls Dip Stick Non-Auto w/o Micrscpy POC 78310 Follow-up With When Contact Information Link Valdemar BATRES, [address] [place] [address]- Additional Instructions: Patient Education Urinary Tract Infection, Adult BMI for Adults Problem List/Past Medical History Ongoing Abnormal uterine bleeding (AUB) Allergic rhinitis, seasonal Anxiety disorder NOS Class 2 obesity with body mass index (BMI) of 36.0 to 36.9 in adult Dysmenorrhea High risk medication use Hypoglycemia Irregular menses Irritable bowel syndrome with constipation Moderate bipolar I disorder, current or most recent episode depressed, with mixed features Reactive airway disease with wheezing Historical Frontal headache IBS (irritable bowel syndrome) Pelvic pain Procedure/Surgical History Diagnostic endoscopy (2013). Medications Adipex-P 37.5 mg oral capsule, 37.5 mg= 1 cap(s), Oral, Daily Bactrim D.S. 800 mg-160 mg Tab, 1 tab(s), Oral, BID ethinyl estradiol-levonorge strel biphasic extended cycle oral tablet, 1 tab(s), Oral, Daily Pyridium 100 mg Tab, 100 mg= 1 tab(s), Oral, TID, PRN Allergies Advil (Vomiting) Social History Alcohol - Denies Alcohol Use, 05/17/2020 Current, Liquor, 1-2 times per week, 4 drinks/episode average. 6.00 drinks/episode maximum. Started age 19 Years. Previous treatment: None. Alcohol use interferes with work or home: No. Drinks more than intended: Yes. 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 Living situation: Home/Independent., 01/04/2019 Substance Abuse - Denies Substance Abuse, 09/10/2015 Tobacco - Medium Risk, 07/08/2022 Never (less than 100 in lifetime) Tobacco Use:. Current vaping or e-cigarette use Smokeless Tobacco Use (more content not included)... Normal [facility] Comment on above: Result Comment: Elec tronically Signed By: ALESHA Mills APRN, [place] X\.br\Date and Time Signed: 11/21/22 15:57 EDT Patient Educationon 11-22-19 Patient Education Nutrition BMI for Adults What is BMI? Body mass index (BMI) is a number that is calculated from a person's weight and height. BMI can help estimate how much of a person's weight is composed of fat. BMI does not measure body fat directly. Rather, it is an alternative to procedures that directly measure body fat, which can be difficult and expensive. BMI can help identify people who may be at higher risk for certain medical problems. What are BMI measurements used for? BMI is used as a screening tool to identify possible weight problems. It helps determine whether a person is obese, overweight, a healthy weight, or underweight. BMI is useful for: ? Identifying a weight problem that may be related to a medical condition or may increase the risk for medical problems. ? Promoting changes, such as changes in diet and exercise, to help reach a healthy weight. BMI screening can be repeated to see if these changes are working. How is BMI calculated? BMI involves measuring your weight in relation to your height. Both height and weight are measured, and the BMI is calculated from those numbers. This can be done either in [place] ([place] or metric measurements. Note that charts and online BMI calculators are available to help you find your BMI quickly and easily without having to do these calculations yourself. To calculate your BMI in [place] ([place] measurements: 1. Measure your weight in pounds (lb). 2. Multiply the number of pounds by 703. ? For example, for a person who weighs 180 lb, multiply that number by 703, which equals 126,540. 3. Measure your height in inches. Then multiply that number by itself to get a measurement called inches squared. ? For example, for a person who is 70 inches tall, the inches squared measurement is 70 inches x 70 inches, which equals 4,900 inches squared. 4. Divide the total from step 2 (number of lb x 703) by the total from step 3 (inches squared): 126,540 ? 4,900 = 25.8. This is your BMI. To calculate your BMI in metric measurements: 1. Measure your weight in kilograms (kg). 2. Measure your height in meters (m). Then multiply that number by itself to get a measurement called meters squared. ? For example, for a person who is 1.75 m tall, the meters squared measurement is 1.75 m x 1.75 m, which is equal to 3.1 meters squared. 3. Divide the number of kilograms (your weight) by the meters squared number. In this example: 70 ? 3.1 = 22.6. This is your BMI. What do the results mean? BMI charts are used to identify whether you are underweight, normal weight, overweight, or obese. The following guidelines will be used: ? Underweight: BMI less than 18.5. ? Normal weight: BMI between 18.5 and 24.9. ? Overweight: BMI between 25 and 29.9. ? Obese: BMI of 30 or above. Keep these notes in mind: ? Weight includes both fat and muscle, so someone with a muscular build, such as an athlete, may have a BMI that is higher than 24.9. In cases like these, BMI is not an accurate measure of body fat. ? To determine if excess body fat is the cause of a BMI of 25 or higher, further assessments may need to be done by a health care provider. ? BMI is usually interpreted in the same way for men and women. Where to find more information For more information about BMI, including tools to quickly calculate your BMI, go to these websites: ? Centers for Disease Control and Prevention: www.cdc.gov ? [place] [employer] Association: www.heart.org ? National Heart, Lung, and Blood Chancellor: www.nhlbi.nih.gov Summary ? Body mass index (BMI) is a number that is calculated from a person's weight and height. ? BMI may help estimate how much of a person's weight is composed of fat. BMI can help identify those who may be at higher risk for certain medical problems. ? BMI can be measured using Ukrainian measurements or metric measurements. ? BMI charts are used to identify whether you are underweight, normal weight, overweight, or obese. This information is not intended to replace advice given to you by your health care provider. Make sure you discuss any questions you have with your health care provider. Document Revised: 02/16/2020 Document Reviewed: 12/24/2019 [employer] Patient Education ? 2022 [employer]. Obstetrics and Gynecology Urinary Tract Infection, Adult A urinary tract infection (UTI) is an infection of any part of the urinary tract. The urinary tract includes the kidneys, ureters, bladder, and urethra. These organs make, store, and get rid of urine in the body. An upper UTI affects the ureters and kidneys. A lower UTI affects the bladder and urethra. What are the causes? Most urinary tract infections are caused by bacteria in your genital area around your urethra, where urine leaves your body. These bacteria grow and cause inflammation of your urinary tract. What increases the risk? You are more likely to develop this condition if: (more content not included)... Normal [facility] PAP ACOG PANEL 2: 21 to 29on 09-26-2022 . . Normal [facility] Comment on above: Performed By: #### P REGQNT #### [facility] [address] [address] [address] Gera Shen Age Gdln ACOG Testing 22- Normal [facility] Comment on above: Performed By: #### P REGQNT #### [facility] [id number] Gera Shen DIAGNOSIS: Comment [facility] Comment on above: Result Comment: NEGA TIVE FOR INTRAEPITHELIAL LESION OR MALIGNANCY. Performed By: #### P REGQNT #### [facility] [address] [address] [address] Gera Shen Methodology: Comment [facility] Comment on above: Result Comment: This liquid based ThinPrep(R) pap test was screened with the use of an image guided system. Performed By: #### P REGQNT #### [facility] [address] [place] [address] Dr. Gera Shen Note: Comment Normal [facility] Comment on above: Result Comment: The Pap smear is a screening test designed to aid in the detection of premalignant and malignant conditions of the uterine cervix. It is not a diagnostic procedure and should not be used as the sole means of detecting cervical cancer. Both false-positive and false-negative reports do occur. . Performed By: #### P REGQNT #### [facility] [address] [address] [address] Gera Shen Performed by: Comment Normal [facility] Comment on above: Result Comment: Hui Quarles Pest Control Supervisor (ASCP) Performed By: #### P REGQNT #### [facility] [address] [place] [address] Dr. Gera Shen Reflex Criteria: Comment Normal [facility] Comment on above: Result Comment: The HPV DNA reflex criteria were not met with this specimen result therefore, no HPV testing was performed. . Performed By: #### P REGQNT #### [facility] [address] [place] [address] Dr. Gera Shen Specimen adequacy: Comment Normal [facility] Comment on above: Result Comment: Sati sfactory for evaluation. Endocervical and/or squamous metaplastic cells (endocervical component) are present. Performed By: #### P REGQNT #### [facility] [address] [place] [address] Dr. Gera Shen Albumin [Mass/volume] in Ser um or PlasmaOrdered By: Yesi Rodriguez on 07-11-2022 Albumin [Mass/Vol] 3.8 g/dL 3.2-5.5 [facility] Automated erythrocytes count in urine sediment (number/area)Ordered By: Yesi Rodriguez on 07-11-2022 RBC Auto (Urine sed) [#/Area] Innumerable [HPF] 0-4 [facility] Automated leukocytes count i n urine sediment (number/area)Ordered By: Yesi Rodriguez on 07-11-2022 WBC Auto (Urine sed) [#/Area] 3-4 [HPF] 0-4 [facility] Basophils Auto (Bld) [#/Vol] Ordered By: Yesi Rodriguez on 07-11-2022 Basophils (Bld) [#/Vol] 0.0 10*3/uL 0.0-0.2 [facility] Basophils/100 WBC Auto (Bld) Ordered By: Yesi Rodriguez on 07-11-2022 Basophils/100 WBC (Bld) 0.6 % . F [facility] Bilirubin Test strip Ql (U)O rdered By: Yesi Rodriguez on 07-11-2022 Bilirubin Ql (U) Negative Negative [facility] Color Auto (U)Ordered By: Jorge Rodriguez on 07-11-2022 Color (U) Yellow Yellow [facility] Complete Blood Count Auto Di ffon 07-11-2022 Basophils (Bld) [#/Vol] 0.0 10*3/uL Normal 0.0-0.2 [facility] Comment on above: Result Comment: PERF ORMED BY: [place] [address] PATHOLOGIST LOOP TENDER CHARITY GUTIERREZ M.D. Performed By: #### C BC, CMP #### [facility] [address] [place] [address] [place] Basophils/100 WBC (Bld) 0.6 % Normal . F [facility] Comment on above: Performed By: #### C BC, CMP #### [facility] [address] [place] [address] [place] Eosinophils (Bld) [#/Vol] 0.1 10*3/uL Normal 0.0-0.45 [facility] Comment on above: Performed By: #### C BC, CMP #### [facility] [address] [place] [address] [place] Eosinophils/100 WBC (Bld) 1.9 % Normal . [facility] Comment on above: Performed By: #### C BC, CMP #### [facility] [address] Erythrocyte distribution width (RBC) [Ratio] 14.4 % Normal 11.9-15.3 [facility] Comment on above: Performed By: #### C BC, CMP #### [facility] [address] Hematocrit (Bld) [Volume fraction] 38.4 % Normal 34.0-46.4 [facility] Comment on above: Performed By: #### C BC, CMP #### [facility] [address] Hemoglobin (Bld) [Mass/Vol] 12.6 g/dL Normal 11.8-15.4 [facility] Comment on above: Performed By: #### C BC, CMP #### [address] Lymphocytes (Bld) [#/Vol] 3.4 10*3/uL Normal 1.00-4.8 [facility] Comment on above: Performed By: #### C BC, CMP #### [address] Lymphocytes/100 WBC (Bld) 43.8 % Normal . [facility] Comment on above: Performed By: #### C BC, CMP #### [address] MCH (RBC) [Entitic mass] 27.2 pg Normal 24.7-34.3 [facility] Comment on above: Performed By: #### C BC, CMP #### [address] MCV (RBC) [Entitic vol] 82.8 fL Normal 80-100 F [facility] Comment on above: Performed By: #### C BC, CMP #### [facility] [address] Mean Corpuscular HGB Conc 32.8 g/dL Normal 32.0-35.0 [facility] Comment on above: Performed By: #### C BC, CMP #### [facility] [address] [place] [address] [place] Monocytes (Bld) [#/Vol] 0.5 10*3/uL Normal 0.0-0.8 [facility] Comment on above: Performed By: #### C BC, CMP #### [facility] [address] [place] [address] [place] Monocytes/100 WBC (Bld) 17.68 % Normal 0.00-20.00 F [facility] Comment on above: Performed By: #### C BC, CMP #### [facility] [address] [place] [address] [place] Monocytes/100 WBC (Bld) 6.6 % Normal . F [facility] Comment on above: Performed By: #### C BC, CMP #### [facility] [address] Neutrophils (Bld) [#/Vol] 3.6 10*3/uL Normal 1.8-7.7 [facility] Comment on above: Performed By: #### C BC, CMP #### [facility] [address] [place] [address] [place] Neutrophils/100 WBC (Bld) 47.1 % Normal . [facility] Comment on above: Performed By: #### C BC, CMP #### [facility] [address] [place] [address] [place] NRBC% 0.1 /100{WBC} Normal 0-0.5 [facility] Comment on above: Performed By: #### C BC, CMP #### [facility] [address] [place] [address] [place] Platelet mean volume (Bld) [Entitic vol] 8.1 fL Normal 6.3-10.7 [facility] Comment on above: Performed By: #### C BC, CMP #### [facility] [address] [place] [address] [place] Platelets (Bld) [#/Vol] 287 10*3/uL Normal 150-450 [facility] Comment on above: Performed By: #### C BC, CMP #### [facility] [address] RBC (Bld) [#/Vol] 4.64 10*6/uL Normal 3.60-5.00 [facility] Comment on above: Performed By: #### C BC, CMP #### [facility] [address] WBC (Bld) [#/Vol] 7.7 10*3/uL Normal 3.8-11.6 [facility] Comment on above: Performed By: #### C BC, CMP #### [facility] [address] Comprehensive Metabolic Pane dagoberto 07-11-2022 Albumin [Mass/Vol] 3.8 g/dL Normal 3.2-5.5 [facility] Comment on above: Performed By: #### C BC, CMP #### [address] Albumin/Globulin [Mass ratio] 1.3 {ratio} Normal [facility] Comment on above: Performed By: #### C BC, CMP #### [facility] [address] [place] [address] ALP [Catalytic activity/Vol] 76 U/L Normal 32-92 [facility] Comment on above: Performed By: #### C BC, CMP #### [place] [id number] [facility] ALT [Catalytic activity/Vol] 34 U/L Normal 10-60 [facility] Comment on above: Performed By: #### C BC, CMP #### [address] Anion gap [Moles/Vol] 14.2 mmol/L Normal 6.0-15.0 [facility] Comment on above: Performed By: #### C BC, CMP #### [place] [id number] [facility] AST [Catalytic activity/Vol] 37 U/L Normal 10-42 [facility] Comment on above: Performed By: #### C BC, CMP #### [address] [address] [place] Bilirubin [Mass/Vol] 0.2 mg/dL Low 0.3-1.2 [facility] Comment on above: Performed By: #### C BC, CMP #### [facility] [address] Calcium [Mass/Vol] 9.0 mg/dL Normal 8.2-10.2 [facility] Comment on above: Performed By: #### C BC, CMP #### [facility] [address] Chloride [Moles/Vol] 105 mmol/L Normal 95-114 [facility] Comment on above: Performed By: #### C BC, CMP #### [facility] [address] CO2 [Moles/Vol] 20.7 mmol/L Low 22.0-30.0 [facility] Comment on above: Performed By: #### C BC, CMP #### [address] Creatinine [Mass/Vol] 0.70 mg/dL Normal 0.44-1.03 [facility] Comment on above: Performed By: #### C BC, CMP #### [address] Creatinine Clr Calc Pharmacy 128.48 [facility] Comment on above: Result Comment: PERF ORMED BY: [place] [address] PATHOLOGIST LOOP TENDER CHARITY GUTIERREZ M.D. Performed By: #### C BC, CMP #### [address] Estimated GFR ( Manuela > 60 [facility] Comment on above: Result Comment: GFR estimated reference range: According to KDOQI guidelines, <60 ml/min/1.73m2 is sufficient to diagnose a patient with chronic kidney disease. Performed By: #### C BC, CMP #### [place] [address] [place] Estimated GFR (Non- Am > 60 Normal [facility] Comment on above: Performed By: #### C BC, CMP #### [facility] [address] Globulin (S) [Mass/Vol] 2.9 g/dL Normal F [facility] Comment on above: Performed By: #### C BC, CMP #### [facility] [address] Glucose [Mass/Vol] 110 mg/dL High 70-100 [facility] Comment on above: Result Comment: [facility] Glucose Reference Range is dependent on time and content of last meal. Glucose of more than 200 mg/dL in a nonstressed, ambulatory subject supports the diagnosis of Diabetes Mellitus. ADA recommended reference range Performed By: #### C BC, CMP #### [facility] [address] Potassium [Moles/Vol] 3.9 mmol/L Normal 3.5-5.1 [facility] Comment on above: Performed By: #### C BC, CMP #### [facility] [address] Protein [Mass/Vol] 6.7 g/dL Normal 6.1-7.9 [facility] Comment on above: Performed By: #### C BC, CMP #### [facility] [address] Sodium [Moles/Vol] 136 mmol/L Normal 136-146 [facility] Comment on above: Performed By: #### C BC, CMP #### [facility] [address] [place] [id number] [place] Urea nitrogen [Mass/Vol] 10 mg/dL Normal 9-23 [facility] Comment on above: Performed By: #### C BC, CMP #### [facility] [address] [place] [address] [place] Creatinine and Glomerular fi ltration rate.predicted panel (S/P/Bld)Ordered By: Yesi Rodriguez on 07-11-2022 Creatinine [Mass/Vol] 0.70 mg/dL 0.44-1.03 [facility] Dipstick and Microscopicon 0 07-11-2022 Appearance (U) Clear Normal Clear [facility] Comment on above: Order Comment: Name Collection Type:: Clean-Voided Midstream Performed By: #### U HCG, ADDONUAPLUS #### [facility] [address] [place] [address] [place] Bacteria,Urine None Seen Normal None Seen [facility] Comment on above: Order Comment: Name Collection Type:: Clean-Voided Midstream Performed By: #### U HCG, ADDONUAPLUS #### [facility] [address] [place] [address] [place] Bilirubin,Urine Negative Normal Negative [facility] Comment on above: Order Comment: Name Collection Type:: Clean-Voided Midstream Performed By: #### U HCG, ADDONUAPLUS #### [facility] [address] [place] [address] [place] Color (U) Yellow Normal Yellow [facility] Comment on above: Order Comment: Name Collection Type:: Clean-Voided Midstream Performed By: #### U HCG, ADDONUAPLUS #### [facility] [address] [place] [address] [place] Glucose Ql (U) Normal Normal Normal [facility] Comment on above: Order Comment: Name Collection Type:: Clean-Voided Midstream Performed By: #### U HCG, ADDONUAPLUS #### [facility] [address] [place], [place] [id number] [place] Hyaline Casts,Urine 0-8 Normal 0-8 [facility] Comment on above: Order Comment: Name Collection Type:: Clean-Voided Midstream Performed By: #### U HCG, ADDONUAPLUS #### [facility] [address] [place], [place] [id number] [place] Ketones Ql (U) Negative Normal Negative [facility] Comment on above: Order Comment: Name Collection Type:: Clean-Voided Midstream Performed By: #### U HCG, ADDONUAPLUS #### [facility] [address] [place] [address] [place] Leukocyte esterase Test strip Ql (U) Negative Normal Negative [facility] Comment on above: Order Comment: Name Collection Type:: Clean-Voided Midstream Performed By: #### U HCG, ADDONUAPLUS #### [facility] [address] [place] [address] [place] Nitrite,Urine Negative Normal Negative [facility] Comment on above: Order Comment: Name Collection Type:: Clean-Voided Midstream Performed By: #### U HCG, ADDONUAPLUS #### [facility] [address] [place] [address] Occult Blood,Urine 3+ High Negative [facility] Comment on above: Order Comment: Name Collection Type:: Clean-Voided Midstream Performed By: #### U HCG, ADDONUAPLUS #### [address] pH (U) 5.5 [pH] Normal 5.0-9.0 [facility] Comment on above: Order Comment: Name Collection Type:: Clean-Voided Midstream Performed By: #### U HCG, ADDONUAPLUS #### [address] Protein (U) [Mass/Vol] 30 mg/dL High Negative [facility] Comment on above: Order Comment: Name Collection Type:: Clean-Voided Midstream Performed By: #### U HCG, ADDONUAPLUS #### [facility] [address] [place] [address] RBC,Urine Innumerable High 0-4 [facility] Comment on above: Order Comment: Name Collection Type:: Clean-Voided Midstream Performed By: #### U HCG, ADDONUAPLUS #### [facility] [address] [place] [address] Specificy [place],Urine 1.030 Normal 1.001-1.030 [facility] Comment on above: Order Comment: Name Collection Type:: Clean-Voided Midstream Performed By: #### U HCG, ADDONUAPLUS #### [address] Squamous Epithelial Cell,Urine 0-1 Normal 0-2 [facility] Comment on above: Order Comment: Name Collection Type:: Clean-Voided Midstream Performed By: #### U HCG, ADDONUAPLUS #### [facility] [address] [place] [address] Urobilinogen,Urine Normal Normal Normal [facility] Comment on above: Order Comment: Name Collection Type:: Clean-Voided Midstream Performed By: #### U HCG, ADDONUAPLUS #### [facility] [address] [place] [address] WBC,Urine 3-4 Normal 0-4 [facility] Comment on above: Order Comment: Name Collection Type:: Clean-Voided Midstream Performed By: #### U HCG, ADDONUAPLUS #### [facility] [address] [place] [address] ECG 12 lead ECGon 07-11-2022 ECG 12 lead ECG [facility] [address] [place] [address] Electrocardiograph Report Signed Patient: Eddie Antonio MR#: [id number] 10 : 2000 Acct:[id number] Age/Sex: 22 / F ADM Date: 07/11/22 Loc: ER Room: Type: [facility] ER Attending Dr: Ordering Provider: Yesi Rodriguez APRN Date of Service: 07/11/2208/01/1700 ECG/ECG 12 lead ECG: Urogenital Copies to: Test Reason : Blood Pressure : / mmHG Vent. Rate : 077 BPM Atrial Rate : 077 BPM P-R Int : 146 ms QRS Dur : 092 ms QT Int : 380 ms P-R-T Axes : 067 077 013 degrees QTc Int : 430 ms Normal sinus rhythm Normal ECG No previous ECGs available Confirmed by JOSE R ALTMAN MD ([id number]) on 07/12/2022 1:25:06 AM Referred By: Electronically Signed By:JOSE R ALTMAN MD Transcribed By: MUS Signed By Jose R Altman MD 07/12/22 0125 Normal [facility] Eosinophils Auto (Bld) [#/Vo l]Ordered By: Yesi Rodriguez on 07-11-2022 Eosinophils (Bld) [#/Vol] 0.1 10*3/uL 0.0-0.45 [facility] Eosinophils/100 WBC Auto (Bl d)Ordered By: Yesi Rodriguez on 07-11-2022 Eosinophils/100 WBC (Bld) 1.9 % . [facility] Erythrocyte distribution wid th Auto (RBC) [Ratio]Ordered By: Yesi Rodriguez on 07-11-2022 Erythrocyte distribution width (RBC) [Ratio] 14.4 % 11.9-15.3 [facility] Estimated glomerular filtrat ion rate (GFR) non- AmericanOrdered By: Yesi Rodriguez on 07-11-2022 GFR/1.73 sq M.predicted among non-blacks MDRD (S/P/Bld) [Vol rate/Area] > 60 mL/Min [facility] Globulin Calc (S) [Mass/Vol] Ordered By: Yesi Rodriguez on 07-11-2022 Globulin (S) [Mass/Vol] 2.9 g/dL F [facility] HCG ( test) IA.rapi d Ql (U)Ordered By: Yesi Rodriguez on 07-11-2022 HCG ( test) Ql (U) Negative [facility] HCG,Urineon 07-11-2022 Beta HCG ( test) Ql (U) Negative Normal [facility] Comment on above: Order Comment: Name Collection Type:: Clean-Voided Midstream Result Comment: PERF ORMED BY: [place] [address] PATHOLOGIST LOOP TENDER CHARITY GUTIERREZ M.D. Performed By: #### U HCG, ADDONUAPLUS #### [address] Hematocrit Auto (Bld) [Volum e fraction]Ordered By: Yesi Rodriguez on 07-11-2022 Hematocrit (Bld) [Volume fraction] 38.4 % 34.0-46.4 [facility] Hemoglobin [Mass/volume] in BloodOrdered By: Yesi Rodriguez on 07-11-2022 Hemoglobin (Bld) [Mass/Vol] 12.6 g/dL 11.8-15.4 [facility] Ketones Auto test strip (U) [Mass/Vol]Ordered By: Yesi Rodriguez on 07-11-2022 Ketones (U) [Mass/Vol] Negative Negative [facility] - UrinalysisOrder ed By: Yesi Rodriguez on 07-11-2022 Hyaline casts LM Ql (Urine sed) 0-8 [LPF] 0-8 [facility] Leukocytes [#/volume] correc brittany for nucleated erythrocytes in Blood by Automated counOrdered By: Yesi Rodriguez on 07-11-2022 WBC corrected for nucl RBC Auto (Bld) [#/Vol] 7.7 10*3/uL 3.8-11.6 [facility] Lymphocytes Auto (Bld) [#/Vo l]Ordered By: Yesi Rodriguez on 07-11-2022 Lymphocytes (Bld) [#/Vol] 3.4 10*3/uL 1.00-4.8 [facility] Lymphocytes/100 WBC Auto (Bl d)Ordered By: Yesi Rodriguez on 07-11-2022 Lymphocytes/100 WBC (Bld) 43.8 % . [facility] MCH Auto (RBC) [Entitic mass ]Ordered By: Yesi Rodriguez on 07-11-2022 MCH (RBC) [Entitic mass] 27.2 pg 24.7-34.3 [facility] MCHC Auto (RBC) [Mass/Vol]Or dered By: Yesi Rodriguez on 07-11-2022 MCHC (RBC) [Mass/Vol] 32.8 g/dL 32.0-35.0 [facility] MCV Auto (RBC) [Entitic vol] Ordered By: Yesi Rodriguez on 07-11-2022 MCV (RBC) [Entitic vol] 82.8 fL 80-100 F [facility] Monocyte distribution width [Entitic volume] in Blood by AutomatedOrdered By: Yesi Rodriguez on 07-11-2022 Monocyte distribution width Auto (Bld) [Entitic vol] 17.68 % 0.00-20.00 [facility] Monocytes Auto (Bld) [#/Vol] Ordered By: Yesi Rodriguez on 07-11-2022 Monocytes (Bld) [#/Vol] 0.5 10*3/uL 0.0-0.8 [facility] Monocytes/100 WBC Auto (Bld) Ordered By: Yesi Rodriguez on 07-11-2022 Monocytes/100 WBC (Bld) 6.6 % . F [facility] Neutrophils Auto (Bld) [#/Vo l]Ordered By: Yesi Rodriguez on 07-11-2022 Neutrophils (Bld) [#/Vol] 3.6 10*3/uL 1.8-7.7 [facility] Neutrophils/100 WBC Auto (Bl d)Ordered By: Yesi Rodriguez on 07-11-2022 Neutrophils/100 WBC (Bld) 47.1 % . [facility] Nitrite Test strip Ql (U)Ord ered By: Yesi Rodriguez on 07-11-2022 Nitrite Ql (U) Negative Negative [facility] No Panel InformationOrdered By: Yesi Rodriguez on 07-11-2022 Estimated GFR () > 60 mL/Min [facility] Comment on above: GFR estimated refere nce range: According to KDOQI guidelines, <60 ml/min/1.73m2 is sufficient to diagnose a patient with chronic kidney disease. Pharmacy Creatinine Clearance (Chem 128.48 [facility] Nucleated erythrocytes [Pres ence] in Blood by Automated countOrdered By: Yesi Rodriguez on 07-11-2022 Nucleated RBC Auto Ql (Bld) 0.1 /100{WBC} 0-0.5 [facility] Platelet mean volume Auto (B ld) [Entitic vol]Ordered By: Yesi Rodriguez on 07-11-2022 Platelet mean volume (Bld) [Entitic vol] 8.1 fL 6.3-10.7 [facility] Platelets Auto (Bld) [#/Vol] Ordered By: Yesi Rodriguez on 07-11-2022 Platelets (Bld) [#/Vol] 287 10*3/uL 150-450 [facility] Protein Auto test strip (U) [Mass/Vol]Ordered By: Yesi Rodriguez on 07-11-2022 Protein (U) [Mass/Vol] 30 mg/dL Negative Fi [facility] Protein [Mass/volume] in Ser um or PlasmaOrdered By: Yesi Rodriguez on 07-11-2022 Protein [Mass/Vol] 6.7 g/dL 6.1-7.9 [facility] RBC Auto (Bld) [#/Vol]Ordere d By: Yesi Rodriguez on 07-11-2022 RBC (Bld) [#/Vol] 4.64 10*6/uL 3.60-5.00 [facility] Serum or plasma alanine ramos otransferase measurement without P-5'-P (enzymatic activiOrdered By: Yesi Rodriguez on 07-11-2022 ALT No additional P-5'-P [Catalytic activity/Vol] 34 U/L 10-60 [facility] Serum or plasma albumin/glob ulin mass ratioOrdered By: Yesi Rodriguez on 07-11-2022 Albumin/Globulin [Mass ratio] 1.3 {ratio} [facility] Serum or plasma alkaline gale sphatase measurement (enzymatic activity/volume)Ordered By: Yesi Rodriguez on 07-11-2022 ALP [Catalytic activity/Vol] 76 U/L 32-92 [facility] Serum or plasma anion gap de terminationOrdered By: Yesi Rodriguez on 07-11-2022 Anion gap [Moles/Vol] 14.2 mmol/L 6.0-15.0 [facility] Serum or plasma aspartate am inotransferase measurement (enzymatic activity/volume)Ordered By: Yesi Rodriguez on 07-11-2022 AST [Catalytic activity/Vol] 37 U/L 10-42 [facility] Serum or plasma calcium bryon urement (mass/volume)Ordered By: Yesi Rodriguez on 07-11-2022 Calcium [Mass/Vol] 9.0 mg/dL 8.2-10.2 [facility] Serum or plasma chloride alvina surement (moles/volume)Ordered By: Yesi Rodriguez on 07-11-2022 Chloride [Moles/Vol] 105 mmol/L 95-114 [facility] Serum or plasma glucose bryon urement (mass/volume)Ordered By: Yesi Rodriguez on 07-11-2022 Glucose [Mass/Vol] 110 mg/dL 70-100 [facility] Comment on above: ADA recommended refe rence rangeRandom Glucose Reference Range is dependent on time and content of last meal. Glucose of more than 200 mg/dL in a nonstressed, ambulatory subject supports the diagnosis of Diabetes Mellitus. Serum or plasma potassium me asurement (moles/volume)Ordered By: Yesi Rodriguez on 07-11-2022 Potassium [Moles/Vol] 3.9 mmol/L 3.5-5.1 [facility] Serum or plasma sodium measu rement (moles/volume)Ordered By: Yesi Rodriguez on 07-11-2022 Sodium [Moles/Vol] 136 mmol/L 136-146 [facility] Serum or plasma total biliru bin measurement (mass/volume)Ordered By: Yesi Rodriguez on 07-11-2022 Bilirubin [Mass/Vol] 0.2 mg/dL 0.3-1.2 [facility] Serum or plasma total carbon dioxide measurement (moles/volume)Ordered By: Yesi Rodriguez on 07-11-2022 CO2 [Moles/Vol] 20.7 mmol/L 22.0-30.0 [facility] Serum or plasma urea nitroge n measurement (mass/volume)Ordered By: Yesi Rodriguez on 07-11-2022 Urea nitrogen [Mass/Vol] 10 mg/dL 9-23 [facility] Specific gravity Auto test s trip (U) [Rel density]Ordered By: Yesi Rodriguez on 07-11-2022 Specific gravity (U) [Rel density] 1.030 1.001-1.030 [facility] Squamous epithelial cells de tection in urine sediment by light microscopyOrdered By: Yesi Rodriguez on 07-11-2022 Epithelial cells.squamous LM Ql (Urine sed) 0-1 [HPF] 0-2 [facility] Urine bacteria detection by automated methodOrdered By: Yesi Rodriguez on 07-11-2022 Bacteria Auto Ql (U) None seen None Seen [facility] Urine clarity by refractomet ry automatedOrdered By: Yesi Rodriguez on 07-11-2022 Clarity Refractometry automated (U) Clear Clear [facility] Urine glucose measurement by automated test strip (mass/volume)Ordered By: Yesi Rodriguez on 07-11-2022 Glucose Auto test strip (U) [Mass/Vol] Normal mg/dL Normal [facility] Urine hemoglobin detection b y automated test stripOrdered By: Yesi Rodriguez on 07-11-2022 Hemoglobin Auto test strip Ql (U) 3+ Negative [facility] Urine leukocyte esterase det ection by automated test stripOrdered By: Yesi Rodriguez on 07-11-2022 Leukocyte esterase Auto test strip Ql (U) Negative Negative [facility] Urobilinogen Auto test strip (U) [Mass/Vol]Ordered By: Yesi Rodriguez on 07-11-2022 Urobilinogen (U) [Mass/Vol] Normal mg/dL Normal [facility] WBC Auto (Bld) [#/Vol]Ordere d By: Yesi Rodriguez on 07-11-2022 WBC (Bld) [#/Vol] 7.7 10*3/uL 3.8-11.6 [facility] pH Auto test strip (U)Ordere d By: Yesi Rodriguez on 07-11-2022 pH (U) 5.5 [pH] 5.0-9.0 [facility] CBC AUTO DIFFon 07-10-2022 BASO # 0.0 103/ul Normal 0.0-0.1 [facility] Comment on above: Performed By: #### U ACSIND #### [facility] [address] [place] [address] [address] Gera Shen Basophils/100 WBC (Bld) 0.7 % Normal 0.2-2.0 [facility] Comment on above: Performed By: #### U ACSIND #### [facility] [address] [address] [address] Gera Shen EO # 0.1 103/ul Normal 0.0-0.7 [facility] Comment on above: Performed By: #### U ACSIND #### [facility] [address] [address] [address] Gera Shen Eosinophils/100 WBC (Bld) 1.6 % Normal 0.9-7.0 [facility] Comment on above: Performed By: #### U ACSIND #### [facility] [address] [address] [address] Gera Shen Erythrocyte distribution width (RBC) [Ratio] 13.1 % Normal 11.0-15.0 [facility] Comment on above: Performed By: #### U ACSIND #### [facility] [address] [place] [address] Dr. Gera Shen Hematocrit (Bld) [Volume fraction] 40.2 % Normal 36.0-48.0 [facility] Comment on above: Performed By: #### U ACSIND #### [facility] [address] [place] [address] Dr. Gera Shen Hemoglobin (Bld) [Mass/Vol] 12.5 g/dL Normal 12.0-16.0 [facility] Comment on above: Performed By: #### U ACSIND #### [facility] [address] [place] [address] Dr. Gera Shen IG # 0.01 10e3/ul Normal 0.00-0.03 [facility] Comment on above: Performed By: #### U ACSIND #### [facility] [address] [place] [address] Dr. Gera Shen IG % 0.2 % Normal 0.0-0.5 [facility] Comment on above: Performed By: #### U ACSIND #### [facility] [address] [place] [address] Dr. Gera Shen LYMPH # 2.2 103/ul Normal 1.2-3.8 [facility] Comment on above: Performed By: #### U ACSIND #### [facility] [address] [place] [address] Dr. Gera Shen Lymphocytes/100 WBC (Bld) 38.7 % Normal 20.5-60.0 [facility] Comment on above: Performed By: #### U ACSIND #### [facility] [address] [place] [address] Dr. Gera Shen MANUAL DIFF REQ NO Normal [facility] Comment on above: Performed By: #### U ACSIND #### [facility] [address] [address] [address] Gera Shen MCH (RBC) [Entitic mass] 27.2 pg Normal 26.7-34.0 [facility] Comment on above: Performed By: #### U ACSIND #### [facility] [address] [place] [address] Dr. Gera Shen MCHC (RBC) [Mass/Vol] 31.1 g/dL Normal 29.9-35.2 [facility] Comment on above: Performed By: #### U ACSIND #### [facility] [address] [place] [address] Dr. Gera Shen MCV (RBC) [Entitic vol] 87.4 fL Normal 81.0-99.0 [facility] [place] Comment on above: Performed By: #### U ACSIND #### [facility] [address] [place] [address] Dr. Gera Shen MONO # 0.4 103/ul Normal 0.3-0.8 [facility] Comment on above: Performed By: #### U ACSIND #### [facility] [address] [place] [address] Dr. Gera Shen Monocytes/100 WBC (Bld) 7.1 % Normal 1.7-12.0 [facility] [place] Comment on above: Performed By: #### U ACSIND #### [facility] [address] [place] [address] Dr. Gera Shen NEUT # 3.0 103/ul Normal 1.4-6.5 [facility] Comment on above: Performed By: #### U ACSIND #### [facility] [address] [place] [address] Dr. Gera Shen Neutrophils/100 WBC (Bld) 51.7 % Normal 43.0-75.0 [facility] Comment on above: Performed By: #### U ACSIND #### [facility] [address] [place] [address] Dr. Gera Shen Platelet mean volume (Bld) [Entitic vol] 9.7 fL Normal 9.5-13.5 [facility] Comment on above: Performed By: #### U ACSIND #### [facility] [address] [place] [address] Dr. Gera Shen PLT 247 103/ul Normal 150-450 [facility] Comment on above: Performed By: #### U ACSIND #### [facility] [address] [place] [address] Dr. Gera Shen RBC 4.60 106/ul Normal 4.20-5.40 [facility] Comment on above: Performed By: #### U ACSIND #### [facility] [address] [place] [address] Dr. Gera Shen WBC 5.8 103/ul Normal 4.0-11.0 [facility] Comment on above: Performed By: #### U ACSIND #### [facility] [address] [place] [address] Dr. Gera Shen CULTURE URINEon 07-10-2022 CULTURE URINE Culture Observations: LIGHT GROWTH OF MIXED GENITAL MONICA. NO POTENTIAL PATHOGENS SEEN. Normal [facility] Comment on above: Performed By: #### U RCX #### [facility] [address] [place] [address] Dr. Gera Shen ER URINE PROFILEon 3 Bilirubin Ql (U) Negative Normal NEGATIVE [facility] Comment on above: Performed By: #### U MICRO, ERUR #### [facility] [address] [place] [address] Dr. Gera Shen Clarity (U) CLEAR Normal CLEAR [facility] Comment on above: Performed By: #### U MICRO, ERUR #### [facility] [address] [place] [address] Dr. Gera Shen Color (U) RED Abnormal YELLOW [facility] Comment on above: Performed By: #### U MICRO, ERUR #### [facility] [address] [place] [address] Dr. Gera Shen ERUAHD A micrscopic examination will be performed if indicated. Normal [facility] Comment on above: Performed By: #### U MICRO, ERUR #### [facility] [address] [address] [address] Gera Shen Glucose Ql (U) Negative Normal NEGATIVE [facility] Comment on above: Performed By: #### U MICRO, ERUR #### [facility] [address] [address] [address] Gera Shen Hemoglobin Ql (U) LARGE Abnormal NEGATIVE [facility] Comment on above: Performed By: #### U MICRO, ERUR #### [facility] [address] [address] [address] Gera Shen Ketones Ql (U) 15 mg/dl Abnormal NEGATIVE [facility] Comment on above: Performed By: #### U MICRO, ERUR #### [facility] [address] [address] [address] Gera Shen LEUKOCYTES TRACE Abnormal NEGATIVE [facility] Comment on above: Performed By: #### U MICRO, ERUR #### [facility] [address] [address] [address] Gera Shen Nitrite Ql (U) Negative Normal NEGATIVE [facility] Comment on above: Performed By: #### U MICRO, ERUR #### [facility] [address] [address] [address] Gera Shen pH (U) 5.0 [pH] Normal 5-9 [facility] Comment on above: Performed By: #### U MICRO, ERUR #### [facility] [address] [address] [address] Gera Shen Protein (U) [Mass/Vol] 100 mg/dL Abnormal NEGAT ANTONIO/ TRACE [facility] Comment on above: Performed By: #### U MICRO, ERUR #### [facility] [address] [address] [address] Gera Shen SPEC GRAVITY >=1.030 Abnormal 1.005-<=1.02 5 [facility] Comment on above: Performed By: #### U MICRO, ERUR #### [facility] [address] [place] [address] Dr. Gera Shen UR MICRO IND INDICATED Normal [facility] Comment on above: Performed By: #### U MICRO, ERUR #### [facility] [address] [place] [address] Dr. Gera Shen Urobilinogen Qn (U) 1.0 {Markel'U}/dL Normal 0.2 - 1. 0 [facility] Comment on above: Performed By: #### U MICRO, ERUR #### [facility] [address] [place] [address] Dr. Gera Shen PREG QUANT HCGon 07-10-2022 HCG QUANT 1 mIU/mL Normal [facility] Comment on above: Performed By: #### P REGQNT #### [facility] [address] [place] [address] Dr. Gera Shen HCG RANGE SEE BELOW Normal [facility] Comment on above: Result Comment: 5-50 0.2-1 WEEK 50-500 1-2 WEEKS 100-5,000 2-3 WEEKS 500-10,000 3-4 WEEKS 1,000-50,000 4-5 WEEKS 10,000-100,000 5-6 WEEKS 15,000-200,000 6-8 WEEKS 10,000-100,000 2-3 MONTHS Performed By: #### P REGQNT #### [facility] [address] [place] [address] Dr. Gera Shen URINE MICROSCOPIC ONLYon BACTERIA SMALL Abnormal NONE SEEN [facility] Comment on above: Performed By: #### U MICRO, ERUR #### [facility] [address] [place] [address] Dr. Gera Shen Bacteria identified Cx Nom (U) INDICATED Normal [facility] Comment on above: Performed By: #### U MICRO, ERUR #### [facility] [address] [place] [address] Dr. Gera Shen CAST NONE SEEN Normal NONE SEEN [facility] Comment on above: Performed By: #### U MICRO, ERUR #### [facility] [address] [place] [address] Dr. Gera Shen Crystals LM Nom (Urine sed) NONE SEEN Normal NONE SEEN [facility] Comment on above: Performed By: #### U MICRO, ERUR #### [facility] [address] [address] [address] Gera Shen Epithelial cells LM Ql (Urine sed) RARE Normal NONE SEEN /RARE [facility] Comment on above: Performed By: #### U MICRO, ERUR #### [facility] [address] [address] [address] Gera Shen MUCOUS NONE SEEN Normal NONE SEEN [facility] Comment on above: Performed By: #### U MICRO, ERUR #### [facility] [address] [address] [address] Gera Shen RBC (U) [#/Vol] /uL Abnormal 0-2 [facility] Comment on above: Performed By: #### U MICRO, ERUR #### [facility] [address] [address] [address] Gera Shen WBC 2-5 Abnormal NONE SEEN [facility] Comment on above: Performed By: #### U MICRO, ERUR #### [facility] [address] [address] [address] Gera Shen US PELVISon 07-10-2022 US PELVIS EXAM: US PELVIS HISTORY: Heavy bleeding for 2 days, 5 weeks COMPARISON: 05/20/2022. TECHNIQUE: Real time pelvic ultrasound examination was performed using Duplex Doppler by transabdominal and transvaginal approaches. Transvaginal approach was medically necessary for optimal imaging. FINDINGS: UTERUS: Uterus measures 7.7 x 4.7 x 5.4 cm. No focal myometrial lesions are seen. ENDOMETRIUM: The endometrium is within normal limits. Endometrial stripe measures up to 3.2 mm in thickness. RIGHT OVARY: The right ovary is normal in size. Right ovary measures 3.0 x 3.5 x 1.9 cm. Arterial and venous blood flow is seen. Resistive index measures 0.67. No suspicious solid or cystic lesions. LEFT OVARY: The left ovary is normal in size. Left ovary measures 4.6 x 1.7 x 2.3 cm. Arterial and venous blood flow is seen. Resistive index measures 0.35. No suspicious solid or cystic lesions. There is no significant pelvic free fluid. IMPRESSION: Unremarkable sonographic appearance of the pelvis. Electronically authenticated by: RADHA DURHAMZ Date: 2022-07-10 18:59 Normal [facility] CBC AUTO DIFFon 06-04-2022 BASO # 0.0 103/ul Normal 0.0-0.1 [facility] Comment on above: Performed By: #### P REGQNT #### [facility] [address] [place] [address] Dr. Gera Shen Basophils/100 WBC (Bld) 0.3 % Normal 0.2-2.0 [facility] [place] Comment on above: Performed By: #### P REGQNT #### [facility] [address] [address] [address] Gera Shen EO # 0.0 103/ul Normal 0.0-0.7 [facility] Comment on above: Performed By: #### P REGQNT #### [facility] [address] [place] [address] Dr. Gera Shen Eosinophils/100 WBC (Bld) 0.3 % Critically low 0.9-7.0 [facility] Comment on above: Performed By: #### P REGQNT #### [facility] [address] [address] [address] Gera Shen Erythrocyte distribution width (RBC) [Ratio] 13.7 % Normal 11.0-15.0 [facility] Comment on above: Performed By: #### P REGQNT #### [facility] [address] [address] [address] Gera Shen Hematocrit (Bld) [Volume fraction] 31.8 % Critically low 36.0-48.0 [facility] Comment on above: Performed By: #### P REGQNT #### [facility] [address] [address] [address] Gera Shen Hemoglobin (Bld) [Mass/Vol] 10.6 g/dL Critically low 12.0-16.0 [facility] Comment on above: Performed By: #### P REGQNT #### [facility] [address] [place] [address] Dr. Gera Shen IG # 0.05 10e3/ul Critically high 0.00-0.03 [facility] Comment on above: Performed By: #### P REGQNT #### [facility] [address] [place] [address] Dr. Gera Shen IG % 0.4 % Normal 0.0-0.5 [facility] Comment on above: Performed By: #### P REGQNT #### [facility] [address] [address] [address] Gera Shen LYMPH # 3.3 103/ul Normal 1.2-3.8 [facility] Comment on above: Performed By: #### P REGQNT #### [facility] [address] [place] [address] Dr. Gera Shen Lymphocytes/100 WBC (Bld) 24.3 % Normal 20.5-60.0 [facility] Comment on above: Performed By: #### P REGQNT #### [facility] [address] [place] [address] Dr. Gera Shen MANUAL DIFF REQ NO Normal [facility] Comment on above: Performed By: #### P REGQNT #### [facility] [address] [place] [address] Dr. Gera Shen MCH (RBC) [Entitic mass] 28.1 pg Normal 26.7-34.0 [facility] Comment on above: Performed By: #### P REGQNT #### [facility] [address] [place] [address] Dr. Gera Shen MCHC (RBC) [Mass/Vol] 33.3 g/dL Normal 29.9-35.2 [facility] Comment on above: Performed By: #### P REGQNT #### [facility] [address] [place] [address] Dr. Gera Shen MCV (RBC) [Entitic vol] 84.4 fL Normal 81.0-99.0 [facility] [place] Comment on above: Performed By: #### P REGQNT #### [facility] [address] [place] [address] Dr. Gera Shen MONO # 0.8 103/ul Normal 0.3-0.8 [facility] Comment on above: Performed By: #### P REGQNT #### [facility] [address] [place] [address] Dr. Gera Shen Monocytes/100 WBC (Bld) 5.6 % Normal 1.7-12.0 [facility] [place] Comment on above: Performed By: #### P REGQNT #### [facility] [address] [place] [address] Dr. Gera Shen NEUT # 9.4 103/ul Critically high 1.4-6.5 [facility] Comment on above: Performed By: #### P REGQNT #### [facility] [address] [place] [address] Dr. Gera Shen Neutrophils/100 WBC (Bld) 69.1 % Normal 43.0-75.0 [facility] Comment on above: Performed By: #### P REGQNT #### [facility] [address] [place] [address] Dr. Gera Shen Platelet mean volume (Bld) [Entitic vol] 9.7 fL Normal 9.5-13.5 [facility] Comment on above: Performed By: #### P REGQNT #### [facility] [address] [place] [address] Dr. Gera Shen PLT 210 103/ul Normal 150-450 [facility] Comment on above: Performed By: #### P REGQNT #### [facility] [address] [place] [address] Dr. Gera Shen RBC 3.77 106/ul Critically low 4.20-5.40 [facility] Comment on above: Performed By: #### P REGQNT #### [facility] [address] [place] [address] Dr. Gera Shen WBC 13.6 103/ul Critically high 4.0-11.0 [facility] Comment on above: Performed By: #### P REGQNT #### [facility] [address] [place] [address] Dr. Gera Shen CBC AUTO DIFFon 06-03-2022 BASO # 0.0 103/ul Normal 0.0-0.1 [facility] Comment on above: Performed By: #### U ACSIND #### [facility] [address] [address] [address] Gera Shen Basophils/100 WBC (Bld) 0.3 % Normal 0.2-2.0 [facility] [place] Comment on above: Performed By: #### U ACSIND #### [facility] [address] [address] [address] Gera Shen EO # 0.1 103/ul Normal 0.0-0.7 [facility] Comment on above: Performed By: #### U ACSIND #### [facility] [address] [place] [address] Dr. Gera Shen Eosinophils/100 WBC (Bld) 0.6 % Critically low 0.9-7.0 [facility] Comment on above: Performed By: #### U ACSIND #### [facility] [address] [place] [address] Dr. Gera Shen Erythrocyte distribution width (RBC) [Ratio] 13.5 % Normal 11.0-15.0 [facility] Comment on above: Performed By: #### U ACSIND #### [facility] [address] [place] [address] Dr. Gera Shen Hematocrit (Bld) [Volume fraction] 41.3 % Normal 36.0-48.0 [facility] Comment on above: Performed By: #### U ACSIND #### [facility] [address] [place] [address] Dr. Gera Shen Hemoglobin (Bld) [Mass/Vol] 13.9 g/dL Normal 12.0-16.0 [facility] Comment on above: Performed By: #### U ACSIND #### [facility] [address] [place] [address] Dr. Gera Shen IG # 0.06 10e3/ul Critically high 0.00-0.03 [facility] Comment on above: Performed By: #### U ACSIND #### [facility] [address] [address] [address] Gera Shen IG % 0.5 % Normal 0.0-0.5 [facility] Comment on above: Performed By: #### U ACSIND #### [facility] [address] [place] [address] Dr. Gera Shen LYMPH # 2.9 103/ul Normal 1.2-3.8 [facility] Comment on above: Performed By: #### U ACSIND #### [facility] [address] [place] [address] Dr. Gera Shen Lymphocytes/100 WBC (Bld) 26.0 % Normal 20.5-60.0 [facility] Comment on above: Performed By: #### U ACSIND #### [facility] [address] [place] [address] Dr. Gera Shen MANUAL DIFF REQ NO Normal [facility] Comment on above: Performed By: #### U ACSIND #### [facility] [address] [place] [address] Dr. Gera Shen MCH (RBC) [Entitic mass] 28.2 pg Normal 26.7-34.0 [facility] Comment on above: Performed By: #### U ACSIND #### [facility] [address] [place] [address] Dr. Gera Shen MCHC (RBC) [Mass/Vol] 33.7 g/dL Normal 29.9-35.2 [facility] Comment on above: Performed By: #### U ACSIND #### [facility] [address] [place] [address] Dr. Gera Shen MCV (RBC) [Entitic vol] 83.8 fL Normal 81.0-99.0 [facility] [place] Comment on above: Performed By: #### U ACSIND #### [facility] [address] [place] [address] Dr. Gera Shen MONO # 0.7 103/ul Normal 0.3-0.8 [facility] Comment on above: Performed By: #### U ACSIND #### [facility] [address] [place] [address] Dr. Gera Shen Monocytes/100 WBC (Bld) 6.3 % Normal 1.7-12.0 [facility] [place] Comment on above: Performed By: #### U ACSIND #### [facility] [address] [address] [address] Gera Shen NEUT # 7.4 103/ul Critically high 1.4-6.5 [facility] Comment on above: Performed By: #### U ACSIND #### [facility] [address] [address] [address] Gera Shen Neutrophils/100 WBC (Bld) 66.3 % Normal 43.0-75.0 [facility] Comment on above: Performed By: #### U ACSIND #### [facility] [address] [place] [address] Dr. Gera Shen Platelet mean volume (Bld) [Entitic vol] 10.1 fL Normal 9.5-13.5 [facility] Comment on above: Performed By: #### U ACSIND #### [facility] [address] [place] [address] Dr. Gera Shen PLT 247 103/ul Normal 150-450 [facility] Comment on above: Performed By: #### U ACSIND #### [facility] [address] [place] [address] Dr. Gera Shen RBC 4.93 106/ul Normal 4.20-5.40 [facility] Comment on above: Performed By: #### U ACSIND #### [facility] [address] [address] [address] Gera Shen WBC 11.2 103/ul Critically high 4.0-11.0 [facility] Comment on above: Performed By: #### U ACSIND #### [facility] [address] [address] [address] Gera Shen Covid-19 PCR ([facility])on 05-10 SARS-CoV-2 (COVID-19) RNA SUDEEP+probe Ql (Unsp spec) Not detected Normal NOT DETECTED [facility] Comment on above: Result Comment: When diagnostic testing is negative, the possibility of a false negative should be considered in the context of a patient's recent exposures and the presence of clinical signs and symptoms consistent with SARS-CoV-2. This test is not yet approved or cleared by the [place] FDA. When there are no FDA-approved or cleared tests available, and other criteria are met, FDA can make tests available under an emergency access mechanism called an Emergency Use Authorization (EUA). The EUA for this test is supported by the [employer] of Health and Human Service's declaration that circumstances exist to justify the emergency use of in vitro diagnostics for the detection and/or diagnosis of the virus that causes COVID-19. This EUA will remain in effect for the duration of the COVID-19 declaration justifying emergency of IVDs, unless it is terminated or revoked by the FDA (after which the test may no longer be used). Performed By: #### P REGQNT #### [facility] [address] [place] [address] Dr. Gera Shen DRUG SCREEN RAPID (URINE)on 06-03-2022 AMP Negative Normal NEGATIVE [facility] Comment on above: Performed By: #### U ACSIND #### [facility] [address] [place] [address] Dr. Gera Shen BAR Negative Normal NEGATIVE [facility] Comment on above: Performed By: #### U ACSIND #### [facility] [address] [place] [address] Dr. Gera Shen BUP Negative Normal NEGATIVE [facility] Comment on above: Performed By: #### U ACSIND #### [facility] [address] [place] [address] Dr. Gera Shen BZO Negative Normal NEGATIVE [facility] Comment on above: Performed By: #### U ACSIND #### [facility] [address] [place] [address] Dr. Gera Shen NEEMA Negative Normal NEGATIVE [facility] Comment on above: Performed By: #### U ACSIND #### [facility] [address] [place] [address] Dr. Gera Shen CUT-OFFS SEE BELOW Normal [facility] Comment on above: Result Comment: AMP (Amphetamine): 500ng/mL, BAR (Barbituates): 200 ng/mL, BZO (Benzodiazepines): 150 ng/mL, BUP (Buprenorphine): 10 ng/mL, NEEMA (Cocaine): 150 ng/mL, mAMP (Methamphetamine): 500 ng/mL, MTD (Methadone): 200 ng/mL, OPI (Opiates): 100 ng/mL, OXY (Oxycodone): 100 ng/mL, PCP (Phencyclidine): 25 ng/mL, PPX (Propoxyphene): 300 ng/mL, THC (Cannabinoids): 50 ng/mL, TCA (Trycyclic Antidepressants): 300 ng/mL Performed By: #### U ACSIND #### [facility] [address] [place] [address] Dr. Gera Shen DRUG CUT HEADER DRUG CLASS TEST SYSTEM CUT-OFF CONCENTRATIONS ARE FOLLOWS: Normal [facility] Comment on above: Performed By: #### U ACSIND #### [facility] [address] [place] [address] Dr. Gera Shen mAMP Negative Normal NEGATIVE [facility] Comment on above: Performed By: #### U ACSIND #### [facility] [address] [place] [address] Dr. Gera Shen MTD Negative Normal NEGATIVE [facility] Comment on above: Performed By: #### U ACSIND #### [facility] [address] [place] [address] Dr. Gera Shen OPI Negative Normal NEGATIVE [facility] Comment on above: Performed By: #### U ACSIND #### [facility] [address] [place] [address] Dr. Gera Shen OXY Negative Normal NEGATIVE [facility] Comment on above: Performed By: #### U ACSIND #### [facility] [address] [address] [address] Gera Shen PCP Negative Normal NEGATIVE [facility] Comment on above: Performed By: #### U ACSIND #### [facility] [address] [place] [address] Dr. Gera Shen PPX Negative Normal NEGATIVE [facility] Comment on above: Performed By: #### U ACSIND #### [facility] [address] [address] [address] Gera Shen TCA Negative Normal NEGATIVE [facility] Comment on above: Performed By: #### U ACSIND #### [facility] [address] [place] [address] Dr. Gera Shen THC Negative Normal NEGATIVE [facility] Comment on above: Performed By: #### U ACSIND #### [facility] [address] [address] [address] Gera Shen TYPE AND SCREENon 06-03-2022 TYPE AND SCREEN Negative Normal [facility] Comment on above: Performed By: #### H CVPCRR #### [facility] [address] [place] [address] Dr. Gera Shen GROUP B STREP CULTUREon 05-10 S. agalactiae Ag Ql (Unsp spec) Isolate 1 Streptococcus agalactiae Light growth of ORGANISM 1 Streptococcus agalactiae ANTIBIOTIC M.I.C RX STATUS Benzylpenicillin <=0.06 S F Ampicillin <=0.25 S F Cefotaxime <=0.12 S F Ceftriaxone <=0.12 S F Levofloxacin 0.5 S F Erythromycin >=8 R F Clindamycin >=1 R F Linezolid <=2 S F Vancomycin 0.5 S F Tetracycline >=16 R F Normal [facility] Comment on above: Performed By: #### G BSCX #### [facility] [address] [place] [address] Dr. Gera Shen US PREG GROWTHon 05-20-2022 US PREG GROWTH EXAMINATION: US PREG GROWTH HISTORY: Uterine size for dates discrepancy COMPARISON: No relevant comparison available. FINDINGS: Heart Rate: 147.0 bpm Amniotic Fluid Volume: 18.5 cm Number: 1.0 Position: Cephalic Maximum Vertical Pocket: 6.2 cm cm 2.7 cm cm 5.2 cm cm 4.4 cm cm BIOMETRY: BPD: 8.7 cm cm; 34 weeks 6 days; 49% HC: 31.4 cmcm; 35 weeks 1 days, 20% AC: 30.1 cm cm; 34 weeks 0 days, 29% FL: 6.8 cm cm; 34 weeks 6 days; 39.5 % % EFW: 2439.0 grams, 5 lbs. 6 oz., 32% FL/AC: 22.6 FL/BPD: 78.5 HC/AC: 1.0 GESTATIONAL AGE: Age by EDC: 35 weeks 0 days ANDREA by EDC: 06/24/2022 Age by US: 34 weeks 5 days ANDREA by US: 06/26/2022 IMPRESSION: Normal interval growth Electronically authenticated by: RIGO LOPEZ Date: 2022-05-20 17:38 Normal [facility] UA (CLEAN/CATCH) INTERCEPTOR OPERATOR/MICRO I F IND.on 05-11-2022 Bilirubin Ql (U) Negative Normal NEGATIVE [facility] Comment on above: Performed By: #### U ACSIND #### [facility] [address] [place] [address] Dr. Gera Shen Clarity (U) CLEAR Normal CLEAR [facility] Comment on above: Performed By: #### U ACSIND #### [facility] [address] [place] [address] Dr. Gera Shen Color (U) YELLOW Normal YELLOW [facility] Comment on above: Performed By: #### U ACSIND #### [facility] [address] [address] [address] Gera Shen Glucose Ql (U) Negative Normal NEGATIVE [facility] Comment on above: Performed By: #### U ACSIND #### [facility] [address] [place] [address] Dr. Gera Shen Hemoglobin Ql (U) Negative Normal NEGATIVE [facility] Comment on above: Performed By: #### U ACSIND #### [facility] [address] [address] [address] Gera Shen Ketones Ql (U) TRACE Abnormal NEGATIVE [facility] Comment on above: Performed By: #### U ACSIND #### [facility] [address] [place] [address] Dr. Gera Shen LEUKOCYTES Negative Normal NEGATIVE [facility] Comment on above: Performed By: #### U ACSIND #### [facility] [address] [place] [address] Dr. Gera Shen Nitrite Ql (U) Negative Normal NEGATIVE [facility] Comment on above: Performed By: #### U ACSIND #### [facility] [address] [address] [address] Gera Shen pH (U) 6.0 [pH] Normal 5-9 [facility] Comment on above: Performed By: #### U ACSIND #### [facility] [address] [address] [address] Gera Shen SPEC GRAVITY >=1.030 Abnormal 1.005-<=1.02 5 [facility] Comment on above: Performed By: #### U ACSIND #### [facility] [address] [address] [address] Gera Shen UA PROTEIN TRACE Normal NEGATIVE/ TRACE [facility] Comment on above: Performed By: #### U ACSIND #### [facility] [address] [place] [address] Dr. Gera Shen UR MICRO IND NOT INDICATED Normal [facility] Comment on above: Performed By: #### U ACSIND #### [facility] [address] [address] [address] Gera Shen Urobilinogen Qn (U) 1.0 {Markel'U}/dL Normal 0.2 - 1. 0 [facility] Comment on above: Performed By: #### U ACSIND #### [facility] [address] [place] [address] Dr. Gera Shen US PREG GROWTHon 04-04-2022 US PREG GROWTH EXAMINATION: US PREG GROWTH HISTORY: Excessive growth affecting management of mother COMPARISON: Ultrasound anatomy 02/12/2022 FINDINGS: Heart Rate: 132.4 bpm Number: 1.0 Position: CEPHALIC Amniotic Fluid Volume: 18.5 cm Maximum Vertical Pocket: 6.8 cm BIOMETRY: BPD: 7.5 cm cm; 30 weeks 1 days HC: 28.2 cmcm; 30 weeks 6 days AC: 24.1 cm cm; 28 weeks 3 days FL: 5.3 cm cm; 28 weeks 1 days EFW: 1263.1 grams; 46% FL/AC: 21.9 FL/BPD: 70.2 HC/AC: 1.2 GESTATIONAL AGE: Age by EDC: 28 weeks 3 days ANDREA by EDC: 06/24/2022 Age by US: 29 weeks 3 days ANDREA by US: 06/17/2022 IMPRESSION: 1. Single live intrauterine with growth detailed above. Electronically authenticated by: RUBÉN LORAINE Date: 2022-04-04 17:07 Normal [facility] GLUCOSE - 1HRon 03-29-2022 Glucose [Mass/Vol] 104 mg/dL Normal 74-106 [facility] Comment on above: Performed By: #### G LU1HR #### [facility] [address] [place] [address] Dr. Gera Shen HEMOGRAM AND PLATELon 2021 Hematocrit (Bld) [Volume fraction] 40.2 % Normal 36.0-48.0 [facility] Comment on above: Performed By: #### U ACSIND #### [facility] [address] [place] [address] Dr. Gera Shen Hemoglobin (Bld) [Mass/Vol] 13.2 g/dL Normal 12.0-16.0 [facility] Comment on above: Performed By: #### U ACSIND #### [facility] [address] [place] [address] Dr. Gera Shen MCH (RBC) [Entitic mass] 28.8 pg Normal 26.7-34.0 [facility] Comment on above: Performed By: #### U ACSIND #### [facility] [address] [place] [address] Dr. Gera Shen MCHC (RBC) [Mass/Vol] 32.8 g/dL Normal 29.9-35.2 [facility] Comment on above: Performed By: #### U ACSIND #### [facility] [address] [place] [address] Dr. Gera Shen MCV (RBC) [Entitic vol] 87.6 fL Normal 81.0-99.0 [facility] Comment on above: Performed By: #### U ACSIND #### [facility] [address] [place] [address] Dr. Gera Shen PLT 264 103/ul Normal 150-450 [facility] Comment on above: Performed By: #### U ACSIND #### [facility] [address] [place], [place] [address] Dr. Gera Shen RBC 4.59 106/ul Normal 4.20-5.40 [facility] Comment on above: Performed By: #### U ACSIND #### [facility] [address] [place], [place] [address] Dr. Gera Shen WBC 11.1 103/ul Critically high 4.0-11.0 [facility] Comment on above: Performed By: #### U ACSIND #### [facility] [address] [place], [place] [address] Dr. Gera Shen US PREG ANATOMY SINGLEon US PREG ANATOMY SINGLE EXAMINATION: US PREG ANATOMY SINGLE HISTORY: anatomy study COMPARISON: No relevant comparison available. TECHNIQUE: Transabdominal sonographic examination was performed for obstetrical and evaluation. FINDINGS: Number: 1 Heart Rate: 137.0 bpm H.B. /min Amniotic Fluid Volume: Subjectively normal position: Cephalic presentation, longitudinal lie Placental Location: Anterior, grade 0. Placental edge 5.4 cm from the internal os Cervix Length: 3.5 cm, closed Normally visualized anatomy: Cerebellum, choroid plexus, cisterna magna, lateral cerebral ventricles, orbits, midline falx, hard palate, four-chamber heart, RVOT, LVOT, stomach, kidneys, bladder, umbilical cord insertion into the abdomen, three-vessel cord, cervical spine, thoracic spine, lumbar spine, sacral spine, right upper extremity, left upper extremity, right lower extremity, left lower extremity Suboptimally visualized anatomy: None BIOMETRY: BPD: 5.4 cm 22 weeks 3 days , 90% HC: 19.9 cm 22 weeks 0 days, 79% AC: 16.5 cm 21 weeks 4 days, 57% FL: 3.6 cm 21 weeks 2 days, 48% EFW:432.6 grams; 15 ounces, 67% FL/AC: 21.7 FL/BPD: 66.3 HC/AC: 1.2 GESTATIONAL AGE: Age by EDC: 21 weeks 1 days ANDREA by EDC: 06/24/2022 Age by current US: 21 weeks 6 days ANDREA by current US: 06/19/2022 ANDREA by EDC: 06/24/2022 IMPRESSION: Normal anatomy scan *Reference: [employer] Practice Guideline for the performance of Obstetric Ultrasound Examinations, March 09, 2007. Electronically authenticated by: RIGO LOPEZ Date: 2022-02-12 19:21 Normal [facility] UA (CLEAN/CATCH) INTERCEPTOR OPERATOR/MICRO I F IND.on 02-05-2022 Bilirubin Ql (U) Negative Normal NEGATIVE [facility] Comment on above: Performed By: #### H CVPCRR #### [facility] [address] [place] [address] Dr. Gera Shen Clarity (U) CLEAR Normal CLEAR [facility] Comment on above: Performed By: #### H CVPCRR #### [facility] [address] [place] [address] Dr. Gera Shen Color (U) YELLOW Normal YELLOW [facility] Comment on above: Performed By: #### H CVPCRR #### [facility] [address] [place] [address] Dr. Gera Shen Glucose Ql (U) Negative Normal NEGATIVE [facility] Comment on above: Performed By: #### H CVPCRR #### [facility] [address] [place] [address] Dr. Gera Shen Hemoglobin Ql (U) MODERATE Abnormal NEGATIVE [facility] Comment on above: Performed By: #### H CVPCRR #### [facility] [address] [place] [address] Dr. Gera Shen Ketones Ql (U) 15 mg/dl Abnormal NEGATIVE [facility] Comment on above: Performed By: #### H CVPCRR #### [facility] [address] [place] [address] Dr. Gera Shen LEUKOCYTES Negative Normal NEGATIVE [facility] Comment on above: Performed By: #### H CVPCRR #### [facility] [address] [place] [address] Dr. Gera Shen Nitrite Ql (U) Negative Normal NEGATIVE [facility] Comment on above: Performed By: #### H CVPCRR #### [facility] [address] [place] [address] Dr. Gera Shen pH (U) 6.0 [pH] Normal 5-9 [facility] Comment on above: Performed By: #### H CVPCRR #### [facility] [address] [place] [address] Dr. Gera Shen SPEC GRAVITY >=1.030 Abnormal 1.005-<=1.02 5 [facility] Comment on above: Performed By: #### H CVPCRR #### [facility] [address] [place] [address] Dr. Gera Shen UA PROTEIN Negative Normal NEGATIVE/ TRACE [facility] Comment on above: Performed By: #### H CVPCRR #### [facility] [address] [place] [address] Dr. Gera Shen UR MICRO IND INDICATED Normal [facility] Comment on above: Performed By: #### H CVPCRR #### [facility] [address] [place] [address] Dr. Gera Shen Urobilinogen Qn (U) 0.2 {Markel'U}/dL Normal 0.2 - 1. 0 [facility] Comment on above: Performed By: #### H CVPCRR #### [facility] [address] [place] [address] Dr. Gera Shen URINE MICROSCOPIC ONLYon BACTERIA TRACE Abnormal NONE SEEN [facility] Comment on above: Performed By: #### H CVPCRR #### [facility] [address] [place] [address] Dr. Gera Shen Bacteria identified Cx Nom (U) NOT INDICATED Normal [facility] Comment on above: Performed By: #### H CVPCRR #### [facility] [address] [place] [address] Dr. Gera Shen CAST NONE SEEN Normal NONE SEEN [facility] Comment on above: Performed By: #### H CVPCRR #### [facility] [address] [place] [address] Dr. Gera Shen Crystals LM Nom (Urine sed) NONE SEEN Normal NONE SEEN [facility] Comment on above: Performed By: #### H CVPCRR #### [facility] [address] [place] [address] Dr. Gera Shen Epithelial cells LM Ql (Urine sed) RARE Normal NONE SEEN /RARE [facility] Comment on above: Performed By: #### H CVPCRR #### [facility] [address] [place] [address] Dr. Gera Shen MUCOUS TRACE Abnormal NONE SEEN [facility] Comment on above: Performed By: #### H CVPCRR #### [facility] [address] [place] [address] Dr. Gera Shen RBC 0-2 Normal 0-2 [facility] Comment on above: Performed By: #### H CVPCRR #### [facility] [address] [place] [address] Dr. Gera Shen WBC NONE SEEN Normal NONE SEEN [facility] Comment on above: Performed By: #### H CVPCRR #### [facility] [address] [place] [address] Dr. Gera Shen US PREG CERVICAL LENGTHon US PREG CERVICAL LENGTH EXAMINATION: US PREG CERVICAL LENGTH HISTORY: Disorder of COMPARISON: No relevant comparison available. FINDINGS: position: Cephalic presentation, longitudinal lie Heart rate: 138 bpm Cervix: 4.9 cm in length. Dilation and fluid filling of the endocervical canal which measures up to 2.2 mm IMPRESSION: The cervix measures 4.9 cm in length with fluid dilation of the endocervical canal measuring 2.2 mm Electronically authenticated by: RIGO LOPEZ Date: 2022-02-05 07:55 Normal [facility] AFP MATERNAL FOR SPINA BIFID Aon 01-25-2022 AFP MoM 1.48 Normal [facility] Comment on above: Performed By: #### U ACSIND #### [facility] [address] [place] [address] Dr. Gera Shen AFP Value 61.2 ng/mL Normal [facility] Comment on above: Performed By: #### U ACSIND #### [facility] [address] [place] [address] Dr. Gera Shen AFP, Serum for Spina Bifida Report Normal [facility] Comment on above: Performed By: #### U ACSIND #### [facility] [address] [address] [address] Gera Shen Comment Comment Normal [facility] Comment on above: Result Comment: Joshua Moody, Ph.D., [facility] Director . References: Available Upon Request. . Multiples Of Median Cutoffs For AFP Elevations Reagan 2.5 Black 2.8 IDD 2.0 Twins 4.5 Abbreviation Definitions IDD - Insulin Dep Diabetes OSBR - Open Spina Bifida Risk . For further inquiries contact [facility] at [phone]. . This test was developed and its performance characteristics determined by [employer]. It has not been cleared or approved by the Food and Drug Administration. Performed By: #### U ACSIND #### [facility] [address] [place] [address] Dr. Gera Shen Gest Age Collection Date 18.3 weeks Normal [facility] Comment on above: Performed By: #### U ACSIND #### [facility] [address] [place] [address] Dr. Gera Shen Gestat, Age Based on As provided Normal [facility] Comment on above: Result Comment: Reca lculations are not recommended when gestational dating by LMP and ultrasound are within 10 days. Performed By: #### U ACSIND #### [facility] [address] [place] [address] Dr. Gera Shen Insulin Dep Diabetes No Normal [facility] Comment on above: Performed By: #### U ACSIND #### [facility] [address] [place] [address] Dr. Gera Shen Interpretation Comment Normal [facility] Comment on above: Result Comment: Inte rpretation: Screen Negative . This result is screen negative for OSB. The AFP MoM calculated is based on the gestational age provided. MS-AFP can identify up to 80% of open neural tube defects. Closed neural tube defects and some open defects may not be detected by this test. This test does not screen for Down Syndrome or Trisomy 18. If screening for Down Syndrome or Trisomy 18 is desired, contact [employer] to discuss available options. The [employer] recommends amniocentesis be offered to women age 35 and older. Performed By: #### U ACSIND #### [facility] [address] [address] [address] Gera Shen [age] Normal [facility] Comment on above: Performed By: #### U ACSIND #### [facility] [address] [address] [address] Gera Shen Multiple Gestation No Normal [facility] Comment on above: Performed By: #### U ACSIND #### [facility] [address] [address] [address] Gera Shen OSBR Risk 1 [place] [address] [facility] Comment on above: Performed By: #### U ACSIND #### [facility] [address] [address] [address] Gera Shen PDF . Normal [facility] Comment on above: Performed By: #### U ACSIND #### [facility] [address] [address] [address] Gera Shen Race [facility] Comment on above: Performed By: #### U ACSIND #### [facility] [address] [address] [address] Gera Shen Test Results: Negative Normal [facility] Comment on above: Performed By: #### U ACSIND #### [facility] [address] [place] [address] Dr. Gera Shen US PREG FOLLOW UPon 01-09-20 22 US PREG FOLLOW UP EXAMINATION: US PREG FOLLOW UP HISTORY: Imaging result abnormal COMPARISON: Ultrasound transvaginal 11/30/2021 FINDINGS: Heart rate: 140 bpm Other: Normal appearance of umbilical cord insertion into the abdomen; no omphalocele. GA: 16 weeks, 1 day ANDREA: 06/24/2022 IMPRESSION: 1. Single live intrauterine . 2. Normal umbilical cord insertion into abdomen. Electronically authenticated by: RUBÉN BARON Date: 2022-01-08 19:22 Normal [facility] HEP B SURFACE ANTIGEN SCREEN on 12-18-2021 HBsAg Screen Negative Normal Negative [facility] Comment on above: Performed By: #### U ACSIND #### [facility] [address] [address] [address] Gera Shen HEPATITIS C VIRUS AB W/ REFL EX QUANTon 12-18-2021 HCV AB 0.1 s/co ratio Normal 0.0-0.[address] [facility] Comment on above: Performed By: #### H CVPCRR #### [facility] [address] [place] [address] Dr. Gera Shen Interpretation: Comment Normal [facility] Comment on above: Result Comment: Nega tive Not infected with HCV, unless recent infection is suspected or other evidence exists to indicate HCV infection. Performed By: #### H CVPCRR #### [facility] [address] [place] [address] Dr. Gera Shen HIV 1 AND 2 WITH REFLEXon HIV Screen 4th Generation wRfx Non-Reactive Normal Non Reactive [facility] Comment on above: Result Comment: HIV Negative HIV-1/HIV-2 antibodies and HIV-1 p24 antigen were NOT detected. There is no laboratory evidence of HIV infection. Performed By: #### U ACSIND #### [facility] [address] [place] [address] Dr. Gera Shen RPR QUANTon 12-18-2021 Rapid Plasma Reagin, Quant Non-Reactive Normal NonRea<1:1 [facility] Comment on above: Result Comment: Plea se Note: This test does not meet current guidelines for screening and diagnosis of syphilis. This test is intended for following treatment response in patients being treated for syphilis infection. To screen for syphilis infection, a reflex cascade that includes both RPR and a treponema-specific assay should be utilized, such as Treponema pallidum (Syphilis) Screening [place] ([id number]) or Rapid Plasma Reagin (RPR) Test With Reflex to Quantitative RPR and Confirmatory Treponema pallidum Antibodies ([id number]). Performed By: #### R PRQ #### [facility] [address] [place] [address] Dr. Gera Shen RUBELLA AB IGGon 07-12-2022 Rubella Antibodies, IgG 1.62 index Normal Immune >0.99 [facility] Comment on above: Result Comment: Non- immune <0.90 Equivocal 0.90 - 0.99 Immune >0.99 Performed By: #### P REGQNT #### [facility] [address] [place] [address] Dr. Gera Shen CBC AUTO DIFFon 12-17-2021 BASO # 0.0 103/ul Normal 0.0-0.1 [facility] Comment on above: Performed By: #### C BC #### [facility] [address] [place] [address] Dr. Gera Shen Basophils/100 WBC (Bld) 0.4 % Normal 0.2-2.0 [facility] Comment on above: Performed By: #### C BC #### [facility] [address] [place] [address] Dr. Gera Shen EO # 0.1 103/ul Normal 0.0-0.7 [facility] Comment on above: Performed By: #### C BC #### [facility] [address] [place] [address] Dr. Gera Shen Eosinophils/100 WBC (Bld) 0.7 % Critically low 0.9-7.0 [facility] Comment on above: Performed By: #### C BC #### [facility] [address] [place] [address] Dr. Gera Shen Erythrocyte distribution width (RBC) [Ratio] 11.9 % Normal 11.0-15.0 [facility] Comment on above: Performed By: #### C BC #### [facility] [address] [place] [address] Dr. Gera Shen Hematocrit (Bld) [Volume fraction] 39.2 % Normal 36.0-48.0 [facility] Comment on above: Performed By: #### C BC #### [facility] [address] [place] [address] Dr. Gera Shen Hemoglobin (Bld) [Mass/Vol] 13.6 g/dL Normal 12.0-16.0 [facility] Comment on above: Performed By: #### C BC #### [facility] [address] [place] [address] Dr. Gera Shen IG # 0.03 10e3/ul Normal 0.00-0.03 [facility] Comment on above: Performed By: #### C BC #### [facility] [address] [place] [address] Dr. Gera Shen IG % 0.4 % Normal 0.0-0.5 [facility] Comment on above: Performed By: #### C BC #### [facility] [address] [place] [address] Dr. Gera Shen LYMPH # 2.3 103/ul Normal 1.2-3.8 [facility] Comment on above: Performed By: #### C BC #### [facility] [address] [place] [address] Dr. Gera Shen Lymphocytes/100 WBC (Bld) 26.6 % Normal 20.5-60.0 [facility] Comment on above: Performed By: #### C BC #### [facility] [address] [place] [address] Dr. Gera Shen MANUAL DIFF REQ NO Normal [facility] Comment on above: Performed By: #### C BC #### [facility] [address] [place] [address] Dr. Gera Shen MCH (RBC) [Entitic mass] 29.7 pg Normal 26.7-34.0 [facility] Comment on above: Performed By: #### C BC #### [facility] [address] [place] [address] Dr. Gera Shen MCHC (RBC) [Mass/Vol] 34.7 g/dL Normal 29.9-35.2 [facility] Comment on above: Performed By: #### C BC #### [facility] [address] [place] [address] Dr. Gera Shen MCV (RBC) [Entitic vol] 85.6 fL Normal 81.0-99.0 [facility] Comment on above: Performed By: #### C BC #### [facility] [address] [place] [address] Dr. Gera Shen MONO # 0.6 103/ul Normal 0.3-0.8 [facility] Comment on above: Performed By: #### C BC #### [facility] [address] [place] [address] Dr. Gera Shen Monocytes/100 WBC (Bld) 7.2 % Normal 1.7-12.0 [facility] Comment on above: Performed By: #### C BC #### [facility] [address] [place] [address] Dr. Gera Shen NEUT # 5.5 103/ul Normal 1.4-6.5 [facility] Comment on above: Performed By: #### C BC #### [facility] [address] [place] [address] Dr. Gera Shen Neutrophils/100 WBC (Bld) 64.7 % Normal 43.0-75.0 [facility] Comment on above: Performed By: #### C BC #### [facility] [address] [place] [address] Dr. Gera Shen Platelet mean volume (Bld) [Entitic vol] 9.7 fL Normal 9.5-13.5 [facility] Comment on above: Performed By: #### C BC #### [facility] [address] [place] [address] Dr. Gera Shen PLT 257 103/ul Normal 150-450 [facility] Comment on above: Performed By: #### C BC #### [facility] [address] [place] [address] Dr. Gera Shen RBC 4.58 106/ul Normal 4.20-5.40 [facility] Comment on above: Performed By: #### C BC #### [facility] [address] [place] [address] Dr. Gera Shen WBC 8.5 103/ul Normal 4.0-11.0 [facility] Comment on above: Performed By: #### C BC #### [facility] [address] [place] [address] Dr. Gera Shen CULTURE URINEon 12-17-2021 CULTURE URINE Culture Observations: LIGHT GROWTH OF MIXED GENITAL MONICA. NO POTENTIAL PATHOGENS SEEN. Normal [facility] Comment on above: Performed By: #### H CVPCRR #### [facility] [address] [address] [address] Gera Shen GLYCOHEMOGLOBIN A1Con 2021 ADA RECOMMENDATION SEE BELOW Normal [facility] Comment on above: Result Comment: ADA RECOMMENDED LIMIT 4.0 - 6.0 ADA THERAPEUTIC TARGET < 7.0 ACTION SUGGESTED > 7.0 Performed By: #### P REGQNT #### [facility] [address] [address] [address] Gera Shen Glucose [Mass/Vol] 111 mg/dL Normal [facility] Comment on above: Performed By: #### P REGQNT #### [facility] [address] [address] [address] Gera Shen HbA1c (Bld) [Mass fraction] 5.5 % Normal 4.5-6.2 [facility] Comment on above: Performed By: #### P REGQNT #### [facility] [address] [address] [address] Gera Shen HOLLAND BOX TEST PT SEND OUTo n 12-17-2021 SENT TO REF LAB 12/17/2021 Normal [facility] Comment on above: Performed By: #### U ACSIND #### [facility] [address] [address] [address] Gera Shen TYPE AND SCREENon 12-17-2021 TYPE AND SCREEN Negative Normal [facility] Comment on above: Performed By: #### H CVPCRR #### [facility] [address] [address] [address] Gera Shen BLOOD BANKOrdered By: Makeda Schmidt on 11-30-2021 ABO/Rh Interp Positive Invalid Interpretation Code [facility] BB Subsection ABSC Gel Interp Negative (11/30/21 10:42 AM) Normal [facility] BB Subsection CHEMISTRYOrdered By: Ela Trinh on 11-30-2021 HbA1c (Bld) [Mass fraction] 5.1 % Normal <=5.9% [facility] ChemAutoSS HEMATOLOGYOrdered By: Svetlana Dennison on 11-30-2021 Erythrocyte distribution width (RBC) [Ratio] 12.6 % Normal 10.9 - 14.2 % [facility] HemeAutoSS Hematocrit (Bld) [Volume fraction] 41.8 % Normal 34.0 - 46.0 % [facility] HemeAutoSS Hemoglobin (Bld) [Mass/Vol] 14.6 g/dL Normal 12.0 - 16.0 gm/dL [facility] HemeAutoSS MCH (RBC) [Entitic mass] 29.9 pg Normal 27. 0 - 34.0 pg [facility] HemeAutoSS MCHC (RBC) [Mass/Vol] 35.0 g/dL Normal 31.4 - 36.0 gm/dL [facility] HemeAutoSS MCV (RBC) [Entitic vol] 85.5 fL Normal 80.0 - 100.0 fL [facility] HemeAutoSS Platelet mean volume (Bld) [Entitic vol] 8.2 fL Normal 6.4 - 10.8 fL [facility] HemeAutoSS Platelets (Bld) [#/Vol] 289.0 E9/L Normal 150. 0 - 500.0 E9/L [facility] HemeAutoSS RBC (Bld) [#/Vol] 4.9 E12/L Normal 4.3 - 5.9 E12/L [facility] HemeAutoSS WBC corrected for nucl RBC Auto (Bld) [#/Vol] 10.0 E9/L Normal 4.0 - 11.0 E9/L [facility] HemeAutoSS US PREG TVon 11-30-2021 US PREG TV EXAMINATION: US PREG TV HISTORY: Irregular periods COMPARISON: No relevant comparison available. FINDINGS: GESTATIONAL SAC: Present and normal appearing. POLE: Present and normal appearing. YOLK SAC: Present. CARDIAC: Present. UTERUS: Normal size and appearance. OVARIES: Right: Corpus lutein cyst. Left: Not seen. CERVIX: 5.1 cm in length and closed. CUL-DE-SAC: Normal. OTHER: 5 mm rounded echogenic structure along the anterior abdominal wall umbilical insertion; possible omphalocele. AGE BY LMP: 10 weeks, 4 days ANDRAE BY LMP: 06/24/2022 AGE BY US CRL: 10 weeks, 6 days ANDREA BY US CRL: 06/22/2022 IMPRESSION: 1. Single live intrauterine . 2. Suspect small omphalocele. Follow-up recommended. Electronically authenticated by: RUBÉN BARON Date: 2021-11-30 16:47 Normal [facility] CHEMISTRYOrdered By: SYSTEM SYSTEM on 11-20-2021 T4 [Mass/Vol] 7.2 ug/dL Normal 4.6 - 9.1 mcg/dL [facility] Remisol TSH Qn 1.39 m[IU]/L Normal 0.34 - 5.60 mcIU/mL [facility] Remisol CHEMISTRYOrdered By: SYSTEM SYSTEM on 10-23-2021 HCG.beta subunit Qn 3212 m[IU]/mL High 1 - 3 mIU/mL [facility] Remisol Vital Signs Date Time Vital Sign Value Performing Clinician Facility 07-22-2023 16:50-0500 Body temperature 98.6 [degF] Jose R Ignacio [facility] 07-22-2023 16:50-0500 Diastolic blood pressure 76 mm[Hg] Jose R Ignacio [facility] 07-22-2023 16:50-0500 Heart rate 87 /min Jose R Ignacio [facility] 07-22-2023 16:50-0500 Respiratory rate 16 /min Jose R Ignacio [facility] 07-22-2023 16:50-0500 SaO2% (BldA) [Mass fraction] 100 % Jose R Ignacio [facility] 07-22-2023 16:50-0500 Systolic blood pressure 120 mm[Hg] Jose R Ignacio [facility] 05-05-2023 01:17-0500 Body temperature 98.06 [degF] Pedro Vacatia [facility] 05-05-2023 01:17-0500 Diastolic blood pressure 80 mm[Hg] Pedro Bo [facility] 05-05-2023 01:17-0500 Heart rate 78 /min Pedro Bo [facility] 05-05-2023 01:17-0500 Respiratory rate 16 /min Pedro Bo [facility] 05-05-2023 01:17-0500 SaO2% (BldA) [Mass fraction] 100 % Pedro Bo [facility] 05-05-2023 01:17-0500 Systolic blood pressure 129 mm[Hg] Pedro Bo [facility] 11-21-2022 15:40-0400 Blood Pressure Location Kayla Orzech [facility] 11-21-2022 15:40-0400 Body temperature 97.34 [degF] Kayla Orzech [facility] 11-21-2022 15:40-0400 Diastolic blood pressure 76 mm[Hg] Kayla Orzech [facility] 11-21-2022 15:40-0400 Heart rate 77 /min Kayla Orzech [facility] 11-21-2022 15:40-0400 SaO2% (BldA) [Mass fraction] 98 % Kayla Orzech [facility] 11-21-2022 15:40-0400 Systolic blood pressure 122 mm[Hg] Kayla Orzech [facility] 07-11-2022 18:32-0500 Diastolic blood pressure 71 mm[Hg] COUNTING MACHINE OPERATOR Yesi Saffle Work Phone: [facility] 07-11-2022 18:32-0500 Heart rate 76 /min COUNTING MACHINE OPERATOR Yesi Saffle Work Phone: [facility] 07-11-2022 18:32-0500 Respiratory rate 18 /min COUNTING MACHINE OPERATOR Yesi Saffle Work Phone: [facility] 07-11-2022 18:32-0500 SaO2% (BldA) [Mass fraction] 100 % COUNTING MACHINE OPERATORCarline Guzmane Work Phone: [facility] 07-11-2022 18:32-0500 Systolic blood pressure 108 mm[Hg] SUSAN Guzmane Work Phone: [facility] 07-11-2022 16:23-0500 Body height 154.94 cm COUNTING MACHINE OPERATORCarline Guzmane Work Phone: [facility] 07-11-2022 16:23-0500 Body temperature 98.1 [degF] SUSAN Guzmane Work Phone: [facility] 07-11-2022 16:23-0500 Body weight 88.35 kg COUNTING MACHINE OPERATORCarline Guzmane Work Phone: [facility] 07-08-2022 18:22-0500 Blood Pressure Location Kayla Orzech [facility] 07-08-2022 18:22-0500 Body temperature 98.24 [degF] Kayla Orzech [facility] 07-08-2022 18:22-0500 Diastolic blood pressure 76 mm[Hg] Kayla Orzech [facility] 07-08-2022 18:22-0500 Heart rate 100 /min Kayla Orzech [facility] 07-08-2022 18:22-0500 SaO2% (BldA) [Mass fraction] 98 % Kayla Orzech [facility] 07-08-2022 18:22-0500 Systolic blood pressure 124 mm[Hg] Kayla Orzech [facility] 02-26-2022 20:33-0400 Diastolic blood pressure 74 mm[Hg] Teofilo Herbert [facility] 02-26-2022 20:33-0400 Heart rate 84 /min Teofilo Herbert [facility] 02-26-2022 20:33-0400 Respiratory rate 16 /min Teofilo Herbert [facility] 02-26-2022 20:33-0400 SaO2% (BldA) [Mass fraction] 99 % Teofilo Herbert [facility] 02-26-2022 20:33-0400 Systolic blood pressure 118 mm[Hg] Teofilo Herbert [facility] 02-26-2022 19:33-0400 Body temperature 98.42 [degF] Teofilo Herbert [facility] 02-26-2022 19:33-0400 Diastolic blood pressure 76 mm[Hg] Teofilo Herbert [facility] 02-26-2022 19:33-0400 Heart rate 88 /min Teofilo Herbert [facility] 02-26-2022 19:33-0400 Respiratory rate 18 /min Teofilo Herbert [facility] 02-26-2022 19:33-0400 SaO2% (BldA) [Mass fraction] 98 % Teofilo Herbert [facility] 02-26-2022 19:33-0400 Systolic blood pressure 115 mm[Hg] Teofilo Herbert [facility] 01-25-2022 18:08-0400 Body weight 84.[address] SRINIVASAN ASHBY . [facility] Comment on above: Performed By: #### UACSIND #### [facility] [address] [place] [address] Dr. Gera Shen Encounters Encounter Date Encounter Type Care Provider Facility Start: 11-10-2023 ambulatory Srinivasan ASHBY Facility: [facility] Start: 08-06-2023 ambulatory Jose R Ignacio Facility:[facility] Start: 07-22-2023 End: 07-22-2023 Emergency department patient visit Jose R Ignacio Facility:[facility] Start: 07-22-2023 End: 07-22-2023 Emergency department patient visit Jose R Ignacio [facility] Start: 06-10-2023 End: 06-11-2023 ambulatory Luly CARRASCO Facility:[facility] Start: 05-14-2023 End: 05-14-2023 ambulatory SRINIVASAN ASHBY Not Available Start: 05-05-2023 End: 05-05-2023 Emergency department patient visit Pedro Soriano Facility:[facility] Start: 05-05-2023 End: 05-05-2023 Emergency department patient visit Pedro Soriano [facility] Start: 04-03-2023 End: 04-04-2023 ambulatory Valdemar Pickard Facility:[facility] Start: 11-21-2022 End: 11-22-2022 ambulatory Kayla Mills Facility:[facility] Start: 11-21-2022 End: 11-21-2022 Lab Drop off Kayla X Orzech [facility] Start: 11-21-2022 End: 11-21-2022 Patient encounter procedure Kayla X Orzech [facility] Start: 09-18-2022 End: 09-18-[address] SRINIVASAN ASHBY . Facility: Start: 07-11-2022 End: 07-11-2022 Emergency department patient visit Valdemar C Link Facility:[facility] Start: 07-11-2022 End: 07-11-2022 Emergency department patient visit SUSAN Rodriguez Work Phone: [facility] Work Phone: Start: 07-10-2022 End: 07-10-2022 ambulatory AMY JACOME . Facility:[facility] Start: 07-08-2022 End: 07-08-2022 Patient encounter procedure Kayla Mills [facility] Start: 06-11-[address] SRINIVASAN ASHBY . Facili ty:[facility] Start: 06-10-2022 End: 06-10-2022 ambulatory MOLLY BENTON Facility:[facility] Start: 06-07-2022 End: 06-11-[address] SRINIVASAN ASHBY . Facility:[facility] Start: 06-03-2022 End: 06-05-2022 Evaluation and management of inpatient DR SRINIVASAN ASHBY . Facility:[facility] Start: 05-29-2022 End: 05-29-[address] SRINIVASAN ASHBY . Facility:[facility] Start: 05-20-2022 End: 05-21-2022 ambulatory LAITH DONIS . Facility:[facility] Start: 05-11-2022 End: 05-12-[address] SRINIVASAN ASHBY . Facility:[facility] Start: 04-04-2022 End: 04-05-[address] SRINIVASAN ASHBY . Facility:[facility] Start: 03-29-2022 End: 03-30-[address] SRINIVASAN ASHBY . Facility:[facility] Start: 02-26-2022 End: 02-26-2022 Emergency department patient visit Teofilo Godinez [facility] Start: 02-20-[address] SRINIVASAN ASHBY . Facili ty:[facility] Start: 02-12-2022 End: 02-13-[address] SRINIVASAN ASHBY . Facility:[facility] Start: 02-05-2022 End: 02-05-[address] BRE HARRIS . Facility:[facility] Start: 01-23-2022 End: 01-24-[address] SRINIVASAN ASHBY . Facility:[facility] Start: 01-08-2022 End: 01-09-[address] SRINIVASAN ASHBY . Facility:[facility] Start: 01-07-2022 End: 01-07-2022 Patient encounter procedure Srinivasan ASHBY [facility] Start: 12-17-2021 End: 12-18-[address] SRINIVASAN ASHBY . Facility:[facility] Start: 11-30-2021 End: 11-30-2021 Patient encounter procedure Srinivasan ASHBY [facility] Start: 11-30-2021 End: 12-01-[address] SRINIVASAN ASHBY . Facility:[facility] Start: 11-20-2021 End: 11-20-2021 Patient encounter procedure KELLIGomez Jasmin DON [facility] Start: 10-23-2021 End: 10-23-2021 Patient encounter procedure Valdemar C Link [facility] Start: 10-12-2021 End: 10-12-2021 Patient encounter procedure Srinivasan ASHBY [facility] Start: 10-02-2021 End: 10-06-2021 Pre-admission assessment Srinivasan ASHBY [facility] Procedures Date Procedure Procedure Detail Performing Clinician Start: 06-03-2022 Delivery of Products of Conception, External Approach DR SRINIVASAN ASHBY . Start: 06-03-2022 Division of Female Perineum, External Approach DR SRINIVASAN ASHBY . Start: 06-03-2022 Drainage of Amniotic Fluid, Therapeutic from Products of Conception, Via Natural or Artificial Opening DR SRINIVASAN ASHBY . Start: 06-03-2022 Repair Rectum, Open Approach DR SRINIVASAN ASHBY . Start: 06-09-2013 Diagnostic endoscopy Co jaime ISMA Plan of Treatment Date Care Activity Detail Author Patient Education Heavy Periods [facility] Work Phone: Patient referral [facility] Work Phone: Immunizations Immunization Date Immunization Notes Care Provider Fa cility 06-11-2019 meningococcal B vaccine, fully recombinant Srinivasan ISMA [facility] 05-10-2019 influenza virus vaccine, unspecified formulation Kayla Orzech [facility] 05-10-2019 meningococcal ACWY vaccine, unspecified formulation Srinivasan ISMA [facility] 05-10-2019 meningococcal B vaccine, fully recombinant Srinivasan ISMA [facility] 04-29-2018 influenza virus vaccine, unspecified formulation Kayla Orzech [facility] 03-14-2017 influenza virus vaccine, unspecified formulation Kayla Orzech [facility] 04-12-2016 influenza virus vaccine, unspecified formulation Kayla Orzech [facility] 03-29-2015 influenza, whole Kayla Orze ch [facility] 04-08-2014 influenza virus vaccine, unspecified formulation Kayla Orzech [facility] 03-09-2013 HPV, unspecified formulation Srinivasan ISMA [facility] 03-09-2013 influenza, whole Kayla Orze ch [facility] 11-09-2012 HPV, unspecified formulation Srinivasan ISMA [facility] 09-07-2012 diphtheria, tetanus toxoids and acellular pertussis vaccine Srinivasan ISMA [facility] 09-07-2012 HPV, unspecified formulation Srinivasan ISMA [facility] 09-07-2012 meningococcal ACWY vaccine, unspecified formulation Srinivasan ISMA [facility] 09-07-2012 tetanus toxoid, reduced diphtheria toxoid, and acellular pertussis vaccine, adsorbed [facility] 11-19-2011 hepatitis B vaccine, pediatric or pediatric/adolescent dosage Srinivasan ISMA [facility] 07-04-2008 influenza virus vaccine, unspecified formulation [facility] 08-06-2007 hepatitis A vaccine, adult dosage Srinivasan ISMA [facility] 01-29-2007 diphtheria, tetanus toxoids and acellular pertussis vaccine Srinivasan ISMA [facility] 01-29-2007 hepatitis A vaccine, adult dosage Srinivasan ISMA [facility] 01-29-2007 measles, mumps and rubella virus vaccine Srinivasan ISMA [facility] 01-29-2007 poliovirus vaccine, unspecified formulation Srinivasan ISMA [facility] 01-29-2007 varicella virus vaccine Srinivasan ISMA [facility] 07-14-2002 diphtheria, tetanus toxoids and acellular pertussis vaccine Srinivasan ISMA [facility] 07-14-2002 haemophilus influenz ae type b vaccine, PRP-OMP conjugate Srinivasan ISMA [facility] 07-14-2002 measles, mumps and rubella virus vaccine Srinivasan ISMA [facility] 07-14-2002 varicella virus vaccine Srinivasan ISMA [facility] 2001 diphtheria, tetanus toxoids and acellular pertussis vaccine Srinivasan ISMA [facility] 2001 haemophilus influenz ae type b vaccine, PRP-OMP conjugate Srinivasan ISMA [facility] 2001 hepatitis B vaccine, pediatric or pediatric/adolescent dosage [facility] 2001 poliovirus vaccine, unspecified formulation Srinivasan ISMA [facility] 2001 diphtheria, tetanus toxoids and acellular pertussis vaccine Srinivasan ISMA [facility] 2001 haemophilus influenz ae type b vaccine, PRP-OMP conjugate Srinivasan ISMA [facility] 2001 pneumococcal conjuga te vaccine, 13 valent Srinivasan ISMA [facility] 2001 poliovirus vaccine, unspecified formulation Srinivasan ISMA [facility] 2001 diphtheria, tetanus toxoids and acellular pertussis vaccine Srinivasan ISMA [facility] 2001 haemophilus influenz ae type b vaccine, PRP-OMP conjugate Srinivasan ISMA [facility] 2001 hepatitis B vaccine, pediatric or pediatric/adolescent dosage Srinivasan ISMA [facility] 2001 pneumococcal conjuga te vaccine, 13 valent Srinivasan ISMA [facility] 2001 poliovirus vaccine, unspecified formulation Srinivasan ISMA [facility] 2001 hepatitis B vaccine, pediatric or pediatric/adolescent dosage Srinivasan ISMA [facility] NEGATED: Highlighted row has not occurred!11-21-2022 SARS-CoV-2 mRNA (tozinameran 5y-11y) vaccine [place] [employer] [facility] NEGATED: Highlighted row has not occurred!07-08-2022 influenza virus vaccine, unspecified formulation [place] [employer] [facility] NEGATED: Highlighted row has not occurred!07-08-2022 SARS-CoV-2 mRNA (tozinameran 5y-11y) [facility] Payers Date Payer Category Payer Unknown [id number] 2.16.84 [id number] 2001 Unknown [id number] 2.16.84 0.1.653038.3.579.2.593 2001 Unknown [id number] 2.16.84 0.1.815511.3.579.2.593 2001 Unknown [id number] 2.16.84 0.1.384151.3.579.2.593 2001 Unknown [id number] 2.16.84 0.1.269920.3.579.2.593 2001 Unknown [id number] 2.16.84 0.1.687366.3.579.2.593 2001 Unknown [id number] 2.16.84 0.1.241783.3.579.2.593 2001 Unknown [id number] 2.16.84 0.1.247540.3.579.2.593 2001 Unknown [id number] 2.16.84 0.1.935484.3.579.2.593 2001 Unknown [id number] 2.16.84 0.1.023070.3.579.2.593 2001 Unknown [id number] 2.16.84 0.1.249544.3.579.2.593 2001 Unknown [id number] 2.16.84 0.1.597128.3.579.2.593 2001 Unknown [id number] 2.16.84 0.1.137976.3.579.2.593 2001 Unknown [id number] 2.16.84 0.1.642938.3.579.2.593 2001 Unknown [id number] 2.16.84 0.1.578573.3.579.2.593 2001 Unknown [id number] 2.16.84 0.1.572589.3.579.2.593 2001 Unknown [id number] 2.16.84 0.1.946950.3.579.2.593 2001 Unknown [id number] 2.16.84 0.1.148834.3.579.2.593 2001 Unknown [id number] 2.16.840 .1.146071.3.579.2.1259 2001 Unknown [id number] 2.16.8 40.1.469978.3.579.2.727 2001 Unknown [id number] 2.16.8 40.1.621617.3.579.2.727 2001 Unknown [id number] 2.16.8 40.1.075977.3.579.2.727 2001 Unknown [id number] 2.16.8 40.1.976154.3.579.2.727 2001 Unknown [id number] 2.16.8 40.1.118368.3.579.2.727 2001 Unknown [id number] 2.16.8 40.1.299772.3.579.2.727 2001 Unknown [id number] 2.16.8 40.1.630211.3.579.2.727 1958 Medicaid [id number] Self-pay 1959 Unknown [id number] Unknown [id number] 2.16.8 40.1.630284.3.579.2.531 Unknown [id number] 2.16.84 0.1.045045.3.579.2.593 Social History Date Type Detail Facility [facility] [facility] Comment on above: denies Sex Assigned At Female [facility] Start: 07-08-2022 End: 11-21-2022 Tobacco smoking status Never smoked tobacco (finding) [facility] Comment on above: denies Start: 07-11-2022 Tobacco smoking stat [facility] Smoker (finding) [facility] Start: 2001 Sex Assigned At Female F [facility] Functional Status Date Assessment Result Facility 07-22-2023 Functional Status N/A [facility] 05-05-2023 Functional Status N/A [facility] 11-21-2022 Functional Status N/A [facility] 07-08-2022 Functional Status N/A [facility] 02-26-2022 Functional Status N/A [facility] Clinical Notes 11-20-2021 to 07-22-2023 Note Date & Type Note Facility 07-22-2023 Hospital Discharg e instructions Patient Education 07/22/2023 18:09:47 Urinary Tract Infection, Adult Urinary Tract Infection, Adult A urinary tract infection (UTI) is an infection of any part of the urinary tract. The urinary tract includes the kidneys, ureters, bladder, and urethra. These organs make, store, and get rid of urine in the body. An upper UTI affects the ureters and kidneys. A lower UTI affects the bladder and urethra. What are the causes? Most urinary tract infections are caused by bacteria in your genital area around your urethra, where urine leaves your body. These bacteria grow and cause inflammation of your urinary tract. What increases the risk? You are more likely to develop this condition if: You have a urinary catheter that stays in place. You are not able to control when you urinate or have a bowel movement (incontinence). You are female and you: ?Use a spermicide or diaphragm for control. ?Have low estrogen levels. ?Are . You have certain genes that increase your risk. You are sexually active. You take antibiotic medicines. You have a condition that causes your flow of urine to slow down, such as: ?An enlarged prostate, if you are male. ?Blockage in your urethra. ?A kidney stone. ?A nerve condition that affects your bladder control (neurogenic bladder). ?Not getting enough to drink, or not urinating often. You have certain medical conditions, such as: ?Diabetes. ?A weak disease-fighting system (immunesystem). ?Sickle cell disease. ?Gout. ?Spinal cord injury. What are the signs or symptoms? Symptoms of this condition include: Needing to urinate right away (urgency). Frequent urination. This may include small amounts of urine each time you urinate. Pain or burning with urination. Blood in the urine. Urine that smells bad or unusual. Trouble urinating. Cloudy urine. Vaginal discharge, if you are female. Pain in the abdomen or the lower back. You may also have: Vomiting or a decreased appetite. Confusion. Irritability or tiredness. A fever or chills. Diarrhea. The first symptom in older adults may be confusion. In some cases, they may not have any symptoms until the infection has worsened. How is this diagnosed? This condition is diagnosed based on your medical history and a physical exam. You may also have other tests, including: Urine tests. Blood tests. Tests for STIs (sexually transmitted infections). If you have had more than one UTI, a cystoscopy or imaging studies may be done to determine the cause of the infections. How is this treated? Treatment for this condition includes: Antibiotic medicine. Bdqf-qiz-xwmbwon medicines to treat discomfort. Drinking enough water to stay hydrated. If you have frequent infections or have other conditions such as a kidney stone, you may need to see a health care provider who specializes in the urinary tract (urologist). In rare cases, urinary tract infections can cause sepsis. Sepsis is a life-threatening condition that occurs when the body responds to an infection. Sepsis is treated in the hospital with IV antibiotics, fluids, and other medicines. Follow these instructions at home: Medicines Take sddt-uqn-mzzjkhb and prescription medicines only as told by your health care provider. If you were prescribed an antibiotic medicine, take it as told by your health care provider. Do not stop using the antibiotic even if you start to feel better. General instructions Make sure you: ?Empty your bladder often and completely. Do not hold urine for long periods of time. ?Empty your bladder after sex. ?Wipe from front to back after urinating or having a bowel movement if you are female. Use each tissue only one time when you wipe. Drink enough fluid to keep your urine pale yellow. Keep all follow-up visits. This is important. Contact a health care provider if: Your symptoms do not get better after 1 2 days. Your symptoms go away and then return. Get help right away if: You have severe pain in your back or your lower abdomen. You have a fever or chills. You have nausea or vomiting. Summary A urinary tract infection (UTI) is an infection of any part of the urinary tract, which includes the kidneys, ureters, bladder, and urethra. Most urinary tract infections are caused by bacteria in your genital area. Treatment for this condition often includes antibiotic medicines. If you were prescribed an antibiotic medicine, take it as told by your health care provider. Do not stop using the antibiotic even if you start to feel better. Keep all follow-up visits. This is important. This information is not intended to replace advice given to you by your health care provider. Make sure you discuss any questions you have with your health care provider. Document Revised: 01/05/2021 Document Reviewed: 01/05/2021 [employer] Patient Education 2022 [employer]. Follow Up Care 07/22/2023 16:44:45 With:Valdemar Link Address: [address] [place], [place] [id number]- Business (1) When:07/25/2023 18:00:21 [facility] 07-22-2023 Evaluation + Plan note Diagnostic Tests PendingChlamydia/Gonococcus, SUDEEP 07/22/23Urine Culture 07/22/23 [facility] 05-05-2023 Evaluation + Plan note Extrac brittany from: Title:ED Note Author:Bo BATRES Pedro EnriquezPaula Date :05/05/23 Acute UTI (N39.0: Urinary tr act infection, site not specified) Orders: cephalexin, 500 mg = 1 cap(s), Cap, Oral, Once, Stop date 05/05/23 1:54:00 EST, STAT, Start date 05/05/23 1:54:00 EST, 05/05/23 1:54:00 EST cephalexin, 500 mg = 1 cap(s), Oral, q12hr, X 7 day(s), # 14 cap(s), Refills(s) 0, Pharmacy: [facility] #[id number], 156, cm, 05/05/23 1:19:00 EST, Height/Length Dosing, 87.6, kg, 05/05/23 1:19:00 EST, Weight Dosing phenazopyridine, 100 mg = 1 tab(s), Tab, Oral, Once, Stop date 05/05/23 1:54:00 EST, STAT, Start date 05/05/23 1:54:00 EST, 05/05/23 1:54:00 EST phenazopyridine, 100 mg = 1 tab(s), Oral, TID, X 3 day(s), # 9 tab(s), Refills(s) 0, [id number], cm, 05/05/23 1:19:00 EST, Height/Length Dosing, 87.6, kg, 05/05/23 1:19:00 EST, Weight Dosing U Beta Hcg Qual UA With Cult Reflex Urine Culture Diagnostic Tests Pending * Urine Culture 05/05/23 [facility]11-27-2023 Hospital Discharge instructions Patient Education 05/05/2023 02:05:19 Urinary Tract Infection, Adult Urinary Tract Infection, Adult A urinary tract infection (UTI) is an infection of any part of the urinary tract. The urinary tractincludes the kidneys, ureters, bladder, and urethra. These organs make, store, and get rid of urinein the body. An upper UTI affects the ureters and kidneys. A lower UTI affects the bladder and urethra. What are the causes? Most urinary tract infections are caused by bacteria in your genital area around your urethra, where urine leaves your body. These bacteria grow and cause inflammation of your urinary tract. What increases the risk? You are more likely to develop this condition if: You have a urinary catheter that stays in place. You are not able to control when you urinate or have a bowel movement (incontinence). You are female and you: ?Use a spermicide or diaphragm for control. ?Have low estrogen levels. ?Are . You have certain genes that increase your risk. You are sexually active. You take antibiotic medicines. You have a condition that causes your flow of urine to slow down, such as: ?An enlarged prostate, if you are male. ?Blockage in your urethra. ?A kidney stone. ?A nerve condition that affects your bladder control (neurogenic bladder). ?Not getting enough to drink, or not urinating often. You have certain medical conditions, such as: ?Diabetes. ?A weak disease-fighting system (immunesystem). ?Sickle cell disease. ?Gout. ?Spinal cord injury. What are the signs or symptoms? Symptoms of this condition include: Needing to urinate right away (urgency). Frequent urination. This may include small amounts of urine each time you urinate. Pain or burning with urination. Blood in the urine. Urine that smells bad or unusual. Trouble urinating. Cloudy urine. Vaginal discharge, if you are female. Pain in the abdomen or the lower back. You may also have: Vomiting or a decreased appetite. Confusion. Irritability or tiredness. A fever or chills. Diarrhea. The first symptom in older adults may be confusion. In some cases, they may not have any symptoms until the infection has worsened. How is this diagnosed? This condition is diagnosed based on your medical history and a physical exam. You may also have other tests, including: Urine tests. Blood tests. Tests for STIs (sexually transmitted infections). If you have had more than one UTI, a cystoscopy or imaging studies may be done to determine the cause of the infections. How is this treated? Treatment for this condition includes: Antibiotic medicine. Ovsk-xha-ceozmkn medicines to treat discomfort. Drinking enough water to stay hydrated. If you have frequent infections or have other conditions such as a kidney stone, you may need to see a health care provider who specializes in the urinary tract (urologist). In rare cases, urinary tract infections can cause sepsis. Sepsis is a life- threatening condition that occurs when the body responds to an infection. Sepsis is treated in the hospital with IV antibiotics, fluids, and other medicines. Follow these instructions at home: Medicines Take vaen-rlz-avgwjbo and prescription medicines only as told by your health care provider. If you were prescribed an antibiotic medicine, take it as told by your health care provider. Do notstop using the antibiotic even if you start to feel better. General instructions Make sure you: ?Empty your bladder often and completely. Do not hold urine for long periods of time. ?Empty your bladder after sex. ?Wipe from front to back after urinating or having a bowel movement if you are female. Use each tissue only one time when you wipe. Drink enough fluid to keep your urine pale yellow. Keep all follow-up visits. This is important. Contact a health care provider if: Your symptoms do not get better after 1 2 days. Your symptoms go away and then return. Get help right away if: You have severe pain in your back or your lower abdomen. You have a fever or chills. You have nausea or vomiting. Summary A urinary tract infection (UTI) is an infection of any part of the urinary tract, which includes the kidneys, ureters, bladder, and urethra. Most urinary tract infections are caused by bacteria in your genital area. Treatment for this condition often includes antibiotic medicines. If you were prescribed an antibiotic medicine, take it as told by your health care provider. Do notstop using the antibiotic even if you start to feel better. Keep all follow-up visits. This is important. This information is not intended to replace advice given to you by your health care provider. Make sure you discuss any questions you have with your health care provider. Document Revised: 01/05/2021 Document Reviewed: 01/05/2021 [employer] Patient Education 2022 Uny[employer]e. Follow Up Care 05/05/2023 01:13:16 With:Valdemar Link Address: [address] [facility] [place] [address]- [facility] (1) When:Within 3 Day(s) [facility]06-15-2023 Hospital Discharge instructions Patient Education 11/21/2022 15:57:11 Urinary Tract Infection, Adult Urinary Tract Infection, Adult A urinary tract infection (UTI) is an infection of any part of the urinary tract. The urinary tractincludes the kidneys, ureters, bladder, and urethra. These organs make, store, and get rid of urinein the body. An upper UTI affects the ureters and kidneys. A lower UTI affects the bladder and urethra. What are the causes? Most urinary tract infections are caused by bacteria in your genital area around your urethra, where urine leaves your body. These bacteria grow and cause inflammation of your urinary tract. What increases the risk? You are more likely to develop this condition if: You have a urinary catheter that stays in place. You are not able to control when you urinate or have a bowel movement (incontinence). You are female and you: ?Use a spermicide or diaphragm for control. ?Have low estrogen levels. ?Are . You have certain genes that increase your risk. You are sexually active. You take antibiotic medicines. You have a condition that causes your flow of urine to slow down, such as: ?An enlarged prostate, if you are male. ?Blockage in your urethra. ?A kidney stone. ?A nerve condition that affects your bladder control (neurogenic bladder). ?Not getting enough to drink, or not urinating often. You have certain medical conditions, such as: ?Diabetes. ?A weak disease-fighting system (immunesystem). ?Sickle cell disease. ?Gout. ?Spinal cord injury. What are the signs or symptoms? Symptoms of this condition include: Needing to urinate right away (urgency). Frequent urination. This may include small amounts of urine each time you urinate. Pain or burning with urination. Blood in the urine. Urine that smells bad or unusual. Trouble urinating. Cloudy urine. Vaginal discharge, if you are female. Pain in the abdomen or the lower back. You may also have: Vomiting or a decreased appetite. Confusion. Irritability or tiredness. A fever or chills. Diarrhea. The first symptom in older adults may be confusion. In some cases, they may not have any symptoms until the infection has worsened. How is this diagnosed? This condition is diagnosed based on your medical history and a physical exam. You may also have other tests, including: Urine tests. Blood tests. Tests for STIs (sexually transmitted infections). If you have had more than one UTI, a cystoscopy or imaging studies may be done to determine the cause of the infections. How is this treated? Treatment for this condition includes: Antibiotic medicine. Cbxn-ilf-lhzarkv medicines to treat discomfort. Drinking enough water to stay hydrated. If you have frequent infections or have other conditions such as a kidney stone, you may need to see a health care provider who specializes in the urinary tract (urologist). In rare cases, urinary tract infections can cause sepsis. Sepsis is a life- threatening condition that occurs when the body responds to an infection. Sepsis is treated in the hospital with IV antibiotics, fluids, and other medicines. Follow these instructions at home: Medicines Take lsfa-rmi-zjmhskb and prescription medicines only as told by your health care provider. If you were prescribed an antibiotic medicine, take it as told by your health care provider. Do notstop using the antibiotic even if you start to feel better. General instructions Make sure you: ?Empty your bladder often and completely. Do not hold urine for long periods of time. ?Empty your bladder after sex. ?Wipe from front to back after urinating or having a bowel movement if you are female. Use each tissue only one time when you wipe. Drink enough fluid to keep your urine pale yellow. Keep all follow-up visits. This is important. Contact a health care provider if: Your symptoms do not get better after 1 2 days. Your symptoms go away and then return. Get help right away if: You have severe pain in your back or your lower abdomen. You have a fever or chills. You have nausea or vomiting. Summary A urinary tract infection (UTI) is an infection of any part of the urinary tract, which includes the kidneys, ureters, bladder, and urethra. Most urinary tract infections are caused by bacteria in your genital area. Treatment for this condition often includes antibiotic medicines. If you were prescribed an antibiotic medicine, take it as told by your health care provider. Do notstop using the antibiotic even if you start to feel better. Keep all follow-up visits. This is important. This information is not intended to replace advice given to you by your health care provider. Make sure you discuss any questions you have with your health care provider. Document Revised: 01/05/2021 Document Reviewed: 01/05/2021 [employer] Patient Education 2022 [employer]. 11/21/2022 15:57:10 BMI for Adults BMI for Adults What is BMI? Body mass index (BMI) is a number that is calculated from a person's weight and height. BMI can help estimate how much of a person's weight is composed of fat. BMI does not measure body fat directly.Rather, it is an alternative to procedures that directly measure body fat, which can be difficult and expensive. BMI can help identify people who may be at higher risk for certain medical problems. What are BMI measurements used for? BMI is used as a screening tool to identify possible weight problems. It helps determine whether a person is obese, overweight, a healthy weight, or underweight. BMI is useful for: Identifying a weight problem that may be related to a medical condition or may increase the risk for medical problems. Promoting changes, such as changes in diet and exercise, to help reach a healthy weight. BMI screening can be repeated to see if these changes are working. How is BMI calculated? BMI involves measuring your weight in relation to your height. Both height and weight are measured,and the BMI is calculated from those numbers. This can be done either in [place] ([place] or metric measurements. Note that charts and online BMI calculators are available to help you find your BMI quickly and easily without having to do these calculations yourself. To calculate your BMI in [place] measurements: 1.Measure your weight in pounds (lb). 2.Multiply the number of pounds by 703. For example, for a person who weighs 180 lb, multiply that number by 703, which equals 126,540. 3.Measure your height in inches. Then multiply that number by itself to get a measurement called inches squared. For example, for a person who is 70 inches tall, the inches squared measurement is 70 inches x 70inches, which equals 4,900 inches squared. 4.Divide the total from step 2 (number of lb x 703) by the total from step 3 (inches squared): 126,540 4,900 = 25.8. This is your BMI. To calculate your BMI in metric measurements: 1.Measure your weight in kilograms (kg). 2.Measure your height in meters (m). Then multiply that number by itself to get a measurement called meters squared. For example, for a person who is 1.75 m tall, the meters squared measurement is 1.75 m x 1.75 m, which is equal to 3.1 meters squared. 3.Divide the number of kilograms (your weight) by the meters squared number. In this example: 70 3.1 = 22.6. This is your BMI. What do the results mean? BMI charts are used to identify whether you are underweight, normal weight, overweight, or obese. The following guidelines will be used: Underweight: BMI less than 18.5. Normal weight: BMI between 18.5 and 24.9. Overweight: BMI between 25 and 29.9. Obese: BMI of 30 or above. Keep these notes in mind: Weight includes both fat and muscle, so someone with a muscular build, such as an athlete, may havea BMI that is higher than 24.9. In cases like these, BMI is not an accurate measure of body fat. To determine if excess body fat is the cause of a BMI of 25 or higher, further assessments may needto be done by a health care provider. BMI is usually interpreted in the same way for men and women. Where to find more information For more information about BMI, including tools to quickly calculate your BMI, go to these websites: Centers for Disease Control and Prevention: www.cdc.gov [place] [employer]: www.heart.org National Heart, Lung, and Blood [employer]: www.nhlbi.nih.gov Summary Body mass index (BMI) is a number that is calculated from a person's weight and height. BMI may help estimate how much of a person's weight is composed of fat. BMI can help identify thosewho may be at higher risk for certain medical problems. BMI can be measured using [place] measurements or metric measurements. BMI charts are used to identify whether you are underweight, normal weight, overweight, or obese. This information is not intended to replace advice given to you by your health care provider. Make sure you discuss any questions you have with your health care provider. Document Revised: 02/16/2020 Document Reviewed: 12/24/2019 [employer] Patient Education 2022 Uny[employer]e. Follow Up Care 11/21/2022 15:08:03 With:Valdemar Pickard DO Address: [facility] [address], [facility] [address] [place] [address]- When: Unknown [facility] 06-15-2023 Evaluation + Plan note Diagnostic Tests Pending * Urine Culture 11/21/22 [facility]01-30-2023 Hospital Discharge instructions Patient Education 07/08/2022 18:40:25 Upper Respiratory Infection, Adult Upper Respiratory Infection, Adult An upper respiratory infection (URI) is a common viral infection of the nose, throat, and upper airpassages that lead to the lungs. The most common type of URI is the common cold. URIs usually get better on their own, without medical treatment. What are the causes? A URI is caused by a virus. You may catch a virus by: Breathing in droplets from an infected person's cough or sneeze. Touching something that has been exposed to the virus (contaminated) and then touching your mouth, nose, or eyes. What increases the risk? You are more likely to get a URI if: You are very young or very old. It is dave or winter. You have close contact with others, such as at a daycare, school, or health care facility. You smoke. You have long-term (chronic) heart or lung disease. You have a weakened disease-fighting (immune) system. You have nasal allergies or asthma. You are experiencing a lot of stress. You work in an area that has poor air circulation. You have poor nutrition. What are the signs or symptoms? A URI usually involves some of the following symptoms: Runny or stuffy (congested) nose. Sneezing. Cough. Sore throat. Headache. Fatigue. Fever. Loss of appetite. Pain in your forehead, behind your eyes, and over your cheekbones (sinus pain). Muscle aches. Redness or irritation of the eyes. Pressure in the ears or face. How is this diagnosed? This condition may be diagnosed based on your medical history and symptoms, and a physical exam. Your health care provider may use a cotton swab to take a mucus sample from your nose (nasal swab). This sample can be tested to determine what virus is causing the illness. How is this treated? URIs usually get better on their own within 7 10 days. You can take steps at home to relieve your symptoms. Medicines cannot cure URIs, but your health care provider may recommend certain medicines to help relieve symptoms, such as: Twsi-wkr-rbnpvvg cold medicines. Cough suppressants. Coughing is a type of defense against infection that helps to clear the respiratory system, so take these medicines only as recommended by your health care provider. Fever-reducing medicines. Follow these instructions at home: Activity Rest as needed. If you have a fever, stay home from work or school until your fever is gone or until your health care provider says you are no longer contagious. Your health care provider may have you wear a face mask to prevent your infection from spreading. Relieving symptoms Gargle with a salt-water mixture 3 4 times a day or as needed. To make a salt- water mixture, completely dissolve 1 tsp of salt in 1 cup of warm water. Use a cool-mist humidifier to add moisture to the air. This can help you breathe more easily. Eating and drinking Drink enough fluid to keep your urine pale yellow. Eat soups and other clear broths. General instructions Take ewtp-qib-imjuaeh and prescription medicines only as told by your health care provider. These include cold medicines, fever reducers, and cough suppressants. Do not use any products that contain nicotine or tobacco, such as cigarettes and e-cigarettes. If you need help quitting, ask your health care provider. Stay away from secondhand smoke. Stay up to date on all immunizations, including the yearly (annual) flu vaccine. Keep all follow-up visits as told by your health care provider. This is important. How to prevent the spread of infection to others URIs can be passed from person to person (are contagious). To prevent the infection from spreading: ?Wash your hands often with soap and water. If soap and water are not available, use hand tool and die supervisor. ?Avoid touching your mouth, face, eyes, or nose. ?Cough or sneeze into a tissue or your sleeve or elbow instead of into your hand or into the air. Contact a health care provider if: You are getting worse instead of better. You have a fever or chills. Your mucus is brown or red. You have yellow or brown discharge coming from your nose. You have pain in your face, especially when you bend forward. You have swollen neck glands. You have pain while swallowing. You have white areas in the back of your throat. Get help right away if: You have shortness of breath that gets worse. You have severe or persistent: ?Headache. ?Ear pain. ?Sinus pain. ?Chest pain. You have chronic lung disease along with any of the following: ?Wheezing. ?Prolonged cough. ?Coughing up blood. ?A change in your usual mucus. You have a stiff neck. You have changes in your: ?Vision. ?Hearing. ?Thinking. ?Mood. Summary An upper respiratory infection (URI) is a common infection of the nose, throat, and upper air passages that lead to the lungs. A URI is caused by a virus. URIs usually get better on their own within 7 10 days. Medicines cannot cure URIs, but your health care provider may recommend certain medicines to help relieve symptoms. This information is not intended to replace advice given to you by your health care provider. Make sure you discuss any questions you have with your health care provider. Document Released: 2001 Document Revised: 06/03/2019 Document Reviewed: 01/09/2018 [employer] Patient Education 2020 [employer]. 07/08/2022 18:40:24 BMI for Adults BMI for Adults Body mass index (BMI) is a number that is calculated from a person's weight and height. BMI may help to estimate how much of a person's weight is composed of fat. BMI can help identify those who may be at higher risk for certain medical problems. How is BMI used with adults? BMI is used as a screening tool to identify possible weight problems. It is used to check whether aperson is obese, overweight, healthy weight, or underweight. How is BMI calculated? BMI measures your weight and compares it to your height. This can be done either in [place] ([place] or metric measurements. Note that charts are available to help you find your BMI quickly and easily without having to do these calculations yourself. To calculate your BMI in [place] ([place] measurements, your health care provider will: 1.Measure your weight in pounds (lb). 2.Multiply the number of pounds by 703. For example, for a person who weighs 180 lb, multiply that number by 703, which equals 126,540. 3.Measure your height in inches (in). Then multiply that number by itself to get a measurement called inches squared. For example, for a person who is 70 in tall, the inches squared measurement is 70 in x 70 in, which equals 4900 inches squared. 4.Divide the total from Step 2 (number of lb x 703) by the total from Step 3 (inches squared): 126,540 4900 = 25.8. This is your BMI. To calculate your BMI in metric measurements, your health care provider will: 1.Measure your weight in kilograms (kg). 2.Measure your height in meters (m). Then multiply that number by itself to get a measurement called meters squared. For example, for a person who is 1.75 m tall, the meters squared measurement is 1.75 m x 1.75 m, which is equal to 3.1 meters squared. 3.Divide the number of kilograms (your weight) by the meters squared number. In this example: 70 3.1 = 22.6. This is your BMI. How is BMI interpreted? To interpret your results, your health care provider will use BMI charts to identify whether you are underweight, normal weight, overweight, or obese. The following guidelines will be used: Underweight: BMI less than 18.5. Normal weight: BMI between 18.5 and 24.9. Overweight: BMI between 25 and 29.9. Obese: BMI of 30 and above. Please note: Weight includes both fat and muscle, so someone with a muscular build, such as an athlete, may havea BMI that is higher than 24.9. In cases like these, BMI is not an accurate measure of body fat. To determine if excess body fat is the cause of a BMI of 25 or higher, further assessments may needto be done by a health care provider. BMI is usually interpreted in the same way for men and women. Why is BMI a useful tool? BMI is useful in two ways: Identifying a weight problem that may be related to a medical condition, or that may increase the risk for medical problems. Promoting lifestyle and diet changes in order to reach a healthy weight. Summary Body mass index (BMI) is a number that is calculated from a person's weight and height. BMI may help to estimate how much of a person's weight is composed of fat. BMI can help identify those who may be at higher risk for certain medical problems. BMI can be measured using [place] measurements or metric measurements. To interpret your results, your health care provider will use BMI charts to identify whether you are underweight, normal weight, overweight, or obese. This information is not intended to replace advice given to you by your health care provider. Make sure you discuss any questions you have with your health care provider. Document Released: 02/04/2005 Document Revised: 05/08/2018 Document Reviewed: 04/08/2018 [employer] Patient Education 2020 [employer]. Follow Up Care 07/08/2022 18:00:48 With:Neeraj Valdemar BATRES Address: [address] Fr[address], [address] [place] [address]- When: Unknown [facility] 09-20-2022 Hospital Discharge instructions Patient Education 02/26/2022 21:14:35 Crutch Use, Adult, Hmee-lu-Mprf Crutch Use, Adult Crutches are used to take weight off of one of your legs or feet when you stand or walk. You may need crutches to help heal after an injury or procedure. It is important to use crutches that fit right. Your crutches fit right if: You can fit 2 or 3 fingers between your armpit and the crutch. You use your hands, not your armpits, to hold yourself up. Do not put your armpits on the crutches. This can damage the nerves in your shoulders, arms, back, armpits, and hands. It is important that a doctor has seen you use crutches the right way before youuse them at home. How to use your crutches How you will use your crutches will depend on why you need them. Your doctor may tell you not to put weight on (not to support your weight with) your hurt leg (non weight-bearing). Or, your doctor may let you put (bear) some of your weight on the hurt leg (partial weight-bearing), but not all of your weight. Follow instructions from your doctor about weight-bearing. Do not put weight on your leg in an amount that causes pain. Walking 1.Stand on your good leg and lift both crutches at the same time. 2.Place the crutches one step-length in front of you. 3.Bring the good leg forward to meet the crutches or to land a little bit ahead of them. 4.Repeat. Going up steps If there is no handrail: 1.Step up with your good leg. 2.Step up with the crutches and your hurt leg. 3.Repeat. If there is a handrail: 1.Hold both crutches in one hand. 2.Place your other hand on the handrail. 3.Put your weight on your arms and lift your good leg up to the step. 4.Bring the crutches and the hurt leg up to that step. 5.Repeat. Going up steps on your butt If you do not feel steady on steps, you can go up steps on your butt. 1.Sit on the lowest step. Have your hurt leg out in front. Use your other hand to hold both crutches flat on the stairs. 2.Scoot your butt up to the next step. Use the free hand and your good leg to help you do this. Going down steps If there is no handrail: 1.Step down with your hurt leg and crutches. 2.Step down with your good leg. 3.Repeat. If there is a handrail: 1.Place your hand on the handrail. 2.Hold both crutches with your free hand. 3.Lower your hurt leg and crutch to the step below you. Keep the crutch tips in the center of the step. Never put the crutch tips on the edge of the step. 4.Lower your good leg to that step. 5.Repeat. Going down steps on your butt If you do not feel steady on steps, you can go down steps on your butt. 1.Sit on the highest step. Have your hurt leg out in front. Use your other hand to hold both crutches flat on the stairs. 2.Scoot your butt down to the next step. Use the free hand and your good leg to help you do this. Standing up 1.Hold the hurt leg forward. 2.Grab the armrest with one hand. Use the other hand to grab the top of the crutches. 3.Use the armrest and your crutches to pull yourself up to stand. Sitting down 1.Hold the hurt leg forward. 2.Grab the armrest with one hand. Use the other hand to grab the top of the crutches. 3.Slowly lower yourself to sit. Get help if: You feel unsteady or wobbly using crutches. You have any new pain. You cannot feel a part of your body (numbness) or you have a tingling feeling. Your crutches do not fit. Get help right away if: You fall. This information is not intended to replace advice given to you by your health care provider. Make sure you discuss any questions you have with your health care provider. Document Released: 11/11/2008 Document Revised: 05/08/2018 Document Reviewed: 11/15/2016 [employer] Patient Education 2020 [employer]. 02/26/2022 21:14:35 Ankle Sprain Ankle Sprain An ankle sprain is a stretch or tear in a ligament in the ankle. Ligaments are tissues that connectbones to each other. The two most common types of ankle sprains are: Inversion sprain. This happens when the foot turns inward and the ankle rolls outward. It affects the ligament on the outside of the foot (lateral ligament). Eversion sprain. This happens when the foot turns outward and the ankle rolls inward. It affects the ligament on the inner side of the foot (medial ligament). What are the causes? This condition is often caused by accidentally rolling or twisting the ankle. What increases the risk? You are more likely to develop this condition if you play sports. What are the signs or symptoms? Symptoms of this condition include: Pain in your ankle. Swelling. Bruising. This may develop right after you sprain your ankle or 1 2 days later. Trouble standing or walking, especially when you turn or change directions. How is this diagnosed? This condition is diagnosed with: A physical exam. During the exam, your health care provider will press on certain parts of your foot and ankle and try to move them in certain ways. X-ray imaging. These may be taken to see how severe the sprain is and to check for broken bones. How is this treated? This condition may be treated with: A brace or splint. This is used to keep the ankle from moving until it heals. An elastic bandage. This is used to support the ankle. Crutches. Pain medicine. Surgery. This may be needed if the sprain is severe. Physical therapy. This may help to improve the range of motion in the ankle. Follow these instructions at home: If you have a brace or a splint: Wear the brace or splint as told by your health care provider. Remove it only as told by your health care provider. Loosen the brace or splint if your toes tingle, become numb, or turn cold and blue. Keep the brace or splint clean. If the brace or splint is not waterproof: ?Do not let it get wet. ?Cover it with a watertight covering when you take a bath or a shower. If you have an elastic bandage (dressing): Remove it to shower or bathe. Try not to move your ankle much, but wiggle your toes from time to time. This helps to prevent swelling. Adjust the dressing to make it more comfortable if it feels too tight. Loosen the dressing if you have numbness or tingling in your foot, or if your foot becomes cold andblue. Managing pain, stiffness, and swelling Take firq-qvm-bdmpgld and prescription medicines only as told by your health care provider. For 2 3 days, keep your ankle raised (elevated) above the level of your heart as much as possible. If directed, put ice on the injured area: ?If you have a removable brace or splint, remove it as told by your health care provider. ?Put ice in a plastic bag. ?Place a towel between your skin and the bag. ?Leave the ice on for 20 minutes, 2 3 times a day. General instructions Rest your ankle. Do not use the injured limb to support your body weight until your health care provider says that you can. Use crutches as told by your health care provider. Do not use any products that contain nicotine or tobacco, such as cigarettes, e- cigarettes, and chewing tobacco. If you need help quitting, ask your health care provider. Keep all follow-up visits as told by your health care provider. This is important. Contact a health care provider if: You have rapidly increasing bruising or swelling. Your pain is not relieved with medicine. Get help right away if: Your foot or toes become numb or blue. You have severe pain that gets worse. Summary An ankle sprain is a stretch or tear in a ligament in the ankle. Ligaments are tissues that connectbones to each other. This condition is often caused by accidentally rolling or twisting the ankle. Symptoms include pain, swelling, bruising, and trouble walking. To relieve pain and swelling, put ice on the affected ankle, raise your ankle above the level of your heart, and use an elastic bandage. Keep all follow-up visits as told by your health care provider. This is important. This information is not intended to replace advice given to you by your health care provider. Make sure you discuss any questions you have with your health care provider. Document Released: 05/26/2006 Document Revised: 02/15/2019 Document Reviewed: 10/20/2018 [employer] Patient Education [employer] Follow Up Care 02/26/2022 19:31:49 With:Valdemar Link Address: [facility] [address], [facility] [address] [place] [address]- Business (1) When:5 to 7 days only if needed [facility]09-20-2022 Evaluation + Plan noteExtracted from: Title:ED Note Author:Teofilo Godinez MD Date: 1. Left ankle sprain (S93.40 2A: Sprain of unspecified ligament of left ankle, initial encounter) Orders: Air Cast Short Crutches XR Ankle 3+ Views Left [facility]06-24-2022 Evaluation + Plan note Diagnostic Tests Pending * HIV Screen 4th Generation wRfx 11/30/21 * Hepatitis B Surface Antigen 11/30/21 * HCV Antibody RFX to Quant PCR 11/30/21 * Urine Culture 11/30/21 * RPR with Conf Rfx 11/30/21 * Rubella Antibody IgG 11/30/21 [facility]06-14-2022 Evaluation + Plan note Diagnostic Tests Pending * T3 Free [facility]20/21 [facility] No data available for this section [facility] assessment information available [facility] Work Phone: Hospital Discharge instructions No data available for this section [facility] Additional Instructions Follow-up with your [employer] call tomorrow for appointment Push fluids Rest You continue your Toradol that they provided for you at [place] for your discomfort Take your antibiotic for your UTI until gone Rest Return here if any problems persist or worsening chest pain, shortness of breath, dizziness, covering [facility] Work Phone: Progress note No data available for this section [facility] Chief Complaint and Reason for Visit Chief Complaint vaginal bleeding, di zzy Advance Directives No Advanced Directives Records Found Advance Directive Response Recorded Date/ Time Advance Directives No July 11, 2022 5:18pm Summary Purpose Family History No Family History Records FoundNo Family History Records Found No data available for this section No Family History Records Found No data available for this section No Family History Records Found Additional Source Comments Care Team (unrecognized sect ion and content) Team Status: Inactive Member Role Status Dates Yesi Rodriguez APRN Emergency Provider Active Valdemar C Link , DO Primary Care Provider Active Team Status: Active Member Role Status Dates Valdemar C Link , DO Primary Care Provider Active Goals (unrecognized section and content) Goals may be documented in a n alternate section INFORMATION SOURCE (unrecogn ized section and content) DATE CREATED AUTHOR 07/19/2022 [facility] DATE CREATED AUTHOR AUTHOR'S ORGANIZ ATION 09/26/2022 [facility] DATE CREATED AUTHOR AUTHOR'S ORGANIZ ATION 05/16/2023 [facility] DATE CREATED AUTHOR AUTHOR'S ORGANIZ ATION 08/14/2023 [facility] FOR RECORDS PERTAINING TO PATIENTS WHO ARE OR HAVE BEEN ENROLLED IN A CHEMICAL DEPENDENCY/SUBSTANCEABUSE PROGRAM, SOME INFORMATION MAY BE OMITTED. This clinical summary was aggregated from multiple sources. Caution should be exercised in using it in the provision of clinical care. This summary normalizes information from multiple sources, and as a consequence, information in this document may materially change the coding, format and clinical context of patient data. In addition, data may be omitted in some cases. CLINICAL DECISIONS SHOULD BE BASED ON THE PRIMARY CLINICAL RECORDS. [employer] provides no warranty or guarantee of the accuracy or completeness of information in this document.
[2023-09-29 10:11] LABS: Age Gdln ACOG Testing Note (.); IGP, rfx Aptima HPV ASCU Note (.)
== END 2023-09-23 21:03 | disposition home or self-care (01) ==
LOC: LAB 21:02
PROVIDERS: Visit Provider Obstetrics & Gynecology
DX: Z01.419 Encounter for gynecological examination (general) (routine) without abnormal findings (principal)
CPT/HCPCS: G0145